=== PATIENT | female | born 1935 | race Caucasian/White ===

== ENCOUNTER 2018-03-17 10:41 | Emergency (ER) | payer MEDICARE ==
[2018-03-17 11:16] LABS: #Basophils 0.1 thou/uL (0.0-0.2); #Eosinphils 0.1 thou/uL (0.0-0.7); #Lymphocytes 1.8 thou/uL (1.20-3.40); #Monocytes 0.4 thou/uL (0.11-0.59); #Neutrophils 1.9 thou/uL (1.40-6.50); %Basophils 1.7 % (0.0-1.0); %Lymphocytes 41.1 % (21.0-51.0); %Monocytes 9.8 % (0.0-10.0); %Neutrophils 45.3 % (42.0-75.0); Hemoglobin 11.2 g/dL (12.0-16.0); Mean Corpuscular HGB CONC 33.3 g/dL (32.0-36.0); Mean Corpuscular Hemoglobin 30.8 pg (27.0-31.0); Mean Corpuscular Volume 92.5 fL (78.0-98.0); Mean Platelet Volume 8.4 fL (7.4-10.4); Platelet Count 232 thou/uL (130-400); RBC Distribution Width 13.2 % (11.5-14.5); Red Blood Cell (RBC) Count 3.62 mill/uL (4.20-5.40); White Blood Cell (WBC) Count 4.3 thou/uL (4.8-10.8)
[2018-03-17 11:38] LABS: ALT (SGPT) 17 U/L (8-55); AST (SGOT) 23 U/L (5-34); Albumin 3.4 g/dL (3.4-4.8); Alkaline Phosphatase 94 U/L (40-150); Anion Gap 13 mmol/L (10-20); BUN (Urea Nitrogen) 11 mg/dL (9.8-20.1); Bilirubin, Total 0.3 mg/dL (0.2-1.2); CK (CPK) 96 U/L (29-168); Calc. Creatinine Clearance 0 mL/min (70-130); Calcium 9.2 mg/dL (7.8-10.44); Carbon Dioxide 24 mmol/L (23-31); Chloride 101 mmol/L (98-107); Estimated GFR-MDRD 86; Globulin 2.3 g/dL (2.4-3.5); Glucose 82 mg/dL (83-110); Potassium 3.9 mmol/L (3.5-5.1); Protein, Total 5.7 g/dL (6.0-8.3); Sodium 134 mmol/L (136-145)
--- NOTE | 2018-03-17 11:40 | CT ---
HEAD CT WITHOUT CONTRAST: HISTORY: Weakness. COMPARISON: 10/31/15. FINDINGS: No parenchymal hemorrhage. No extraaxial hematoma. No midline shift. Basilar cisterns are patent. Age-appropriate atrophy. Cortical jarrett-white matter differentiation is preserved. Ventricles and sulci are patent and symmetric. White matter hypodensities due to chronic small vessel ischemic changes of the white matter are ident ified. There is a hypodensity involving the subcortical white matter near the left vertex predominan tly at the posterior aspect of the left frontal lobe. This may also be due to chronic small-vessel i schemic change. However, underlying white matter infarct or possible small focus of vasogenic edema could not be excluded. This hypodensity is not appreciated on the previous exam. Further evaluation with pre- and postcontrast brain MRI is recommended. IMPRESSION: Findings as above. Nonemergent pre- and postcontrast brain MRI is recommended. POS: [facility]
[2018-03-17 11:42] LABS: CKMB 6.1 ng/mL (0-6.6); Troponin I 0.018 ng/mL (< 0.028)
--- NOTE | 2018-03-23 13:21 | EKG ---
Test Reason : Blood Pressure : / mmHG Vent. Rate : 075 BPM Atrial Rate : 075 BPM P-R Int : 138 ms QRS Dur : 104 ms QT Int : 422 ms P-R-T Axes : 010 -82 076 degrees QTc Int : 471 ms Normal sinus rhythm Incomplete right bundle branch block Left anterior fascicular block Abnormal ECG Confirmed by ROLA LANDIS ([id number]), news assignment editor OLEGARIO DEL RIO ([id number]) on 03/23/2018 1:20:31 PM Referred By: Confirmed By:ROLA LANDIS
== END 2018-03-17 15:46 | disposition home or self-care (01) ==
LOC: ERS 10:41
DX: I95.1 Orthostatic hypotension (principal); K21.9 Gastro-esophageal reflux disease without esophagitis; E78.5 Hyperlipidemia, unspecified; Z86.73 Personal history of transient ischemic attack (TIA), and cerebral infarction without residual deficits; F32.9 Major depressive disorder, single episode, unspecified; Z87.891 Personal history of nicotine dependence
CPT/HCPCS: 36415; 70450; 80053; 82553; 84484; 85025; 93005; 96360; 96361

== ENCOUNTER 2018-04-22 14:19 | Inpatient (IN) | payer MEDICARE ==
[2018-04-22 15:13] LABS: #Basophils 0.1 thou/uL (0.0-0.2); #Lymphocytes 0.6 thou/uL (1.20-3.40); #Monocytes 0.6 thou/uL (0.11-0.59); #Neutrophils 9.4 thou/uL (1.40-6.50); %Basophils 0.6 % (0.0-1.0); %Eosinophils 0.2 % (0.0-10.0); %Lymphocytes 5.6 % (21.0-51.0); %Monocytes 5.7 % (0.0-10.0); Hemoglobin 12.7 g/dL (12.0-16.0); Mean Corpuscular HGB CONC 33.4 g/dL (32.0-36.0); Mean Corpuscular Volume 92.8 fL (78.0-98.0); Mean Platelet Volume 7.3 fL (7.4-10.4); Platelet Count 235 thou/uL (130-400); RBC Distribution Width 13.5 % (11.5-14.5); Red Blood Cell (RBC) Count 4.09 mill/uL (4.20-5.40); White Blood Cell (WBC) Count 10.7 thou/uL (4.8-10.8)
[2018-04-22] MEDS ORDERED: Ondansetron PF 4 MG/2 ML Vial ONE (15:13)
--- NOTE | 2018-04-22 15:28 | RAD ---
CHEST 1 VIEW: Date: 04/22/18 HISTORY: 82-year-old female with weakness, nausea, and vomiting. Possible atrial fibrillation. COMPARISON: 01/20/17. FINDINGS: Monitor leads overlie the chest. Borderline cardiomegaly. Anterior cervical fusion changes at multipl e levels of the lower cervical spine. There is a skin fold overlying the right chest wall. IMPRESSION: No acute intrathoracic disease. Atherosclerosis of the aorta. POS: [facility]
[2018-04-22 15:37] LABS: ALT (SGPT) 43 U/L (8-55); AST (SGOT) 26 U/L (5-34); Albumin 3.7 g/dL (3.4-4.8); Alkaline Phosphatase 72 U/L (40-150); Anion Gap 9 mmol/L (10-20); BUN (Urea Nitrogen) 13 mg/dL (9.8-20.1); Bilirubin, Total 0.3 mg/dL (0.2-1.2); CK (CPK) 58 U/L (29-168); Calc. Creatinine Clearance 0 mL/min (70-130); Calcium 9.7 mg/dL (7.8-10.44); Carbon Dioxide 33 mmol/L (23-31); Chloride 96 mmol/L (98-107); Estimated GFR-MDRD 82; Globulin 2.4 g/dL (2.4-3.5); Glucose 85 mg/dL (83-110); Lipase 22 U/L (8-78); Potassium 3.6 mmol/L (3.5-5.1); Protein, Total 6.1 g/dL (6.0-8.3); Sodium 134 mmol/L (136-145)
[2018-04-22 15:47] LABS: CKMB 9.3 ng/mL (0-6.6); Troponin I 0.453 ng/mL (< 0.028)
[2018-04-22] MEDS ORDERED: cloNIDine 0.1 MG TAB PO PRN (17:21)
[2018-04-22] MEDS ORDERED: Diabetic Tussin 200 MG/10 ML UDCUP PO PRN (17:21)
[2018-04-22] MEDS ORDERED: HYDROcodone/Acetaminophen 5/325 mg Tablet PO PRN (17:21)
[2018-04-22] MEDS ORDERED: Sodium Chloride 0.65% Nasal 44 ML BOT EA NARE PRN (17:21)
[2018-04-22] MEDS ORDERED: Bisacodyl 5 MG TAB PO PRN ×2 (17:21)
[2018-04-22] MEDS ORDERED: Acetaminophen 500 MG TAB PO PRN (17:21)
[2018-04-22] MEDS ORDERED: Ondansetron PF 4 MG/2 ML Vial IVP PRN ×2 (17:21)
[2018-04-22] MEDS ORDERED: Senokot S 8.6-50 MG TAB PO PRN ×2 (17:21)
[2018-04-22] MEDS ORDERED: hydrALAZINE 20 MG/ML VIAL SLOW IVP PRN (17:21)
[2018-04-22] MEDS ORDERED: Calcium Carbonate 500 MG ChewTAB PO PRN (17:21)
[2018-04-22] MEDS ORDERED: Benzonatate 100 MG CAP PO PRN (17:21)
[2018-04-22] MEDS ORDERED: Enoxaparin Sodium 30 MG/0.3 ML SYRINGE ONE (18:05)
[2018-04-22 18:29] LABS: Bilirubin Negative (Negative); Blood, Urine Negative (Negative); Clarity CLEAR (Clear); Glucose, Urine (Dipstick) Negative (Negative); Leukocyte Negative (Negative); Nitrite Negative (Negative); Protein, Urine (Dipstick) Negative (Neg-Trace); Specific Gravity, Urine 1.003 (1.002-1.036); Urobilinogen 0.2 mg/dL (0.2-1.0); pH, Urine 7.5 (5.0-9.0)
[2018-04-22 19:49] LABS: Critical Call Chem Troponin I RESULT DECREASING; Troponin I 0.433 ng/mL (< 0.028)
--- NOTE | 2018-04-22 21:43 | HP ---
DATE OF ADMISSION: 04/22/2018 PRIMARY CARE PHYSICIAN: Dr. Meir Armstrong. CHIEF COMPLAINT: Generalized weakness. HISTORY OF PRESENT ILLNESS: Ms. Noble is a pleasant 82-year-old female with past medical history o f chronic atrial fibrillation, severe GERD, listed history of Crohn disease and pancreatitis and hist ory of PEA cardiac arrest and 12/2016, came to the emergency room with above-mentioned complaint. Hi story is mainly obtained by the patient herself and electronic medical records have been reviewed. T he patient was admitted in 12/2016 after she had coded after routine EGD evaluation and had to be res uscitated. At that time, she has required intubation for hypoxic respiratory failure, but had compli cated postop course requiring tracheostomy and PEG tube placement and was discharged to LTAC at that time. She reports that since then she has been feeling fairly well. She has been able to work out with the physical therapy initially in the LTAC and then later at home health and also an outpatient setting, but; however, for the last 2 or 3 months, she has been feeling more and more weak up to the point wh ere that she quit going for the therapy. She has also been having some intermittent nausea and vomit ing for the last few days. Today, her symptoms are more pronounced. She just could not get out of t he chair at all. She reports that her and herself struggle for 1 hour to get her up to go us e the restroom, but were unable to do so. Finally, her home health care nurse came up to the house a nd she helped her to the bathroom. Other than that, she denies any recent illnesses. She denies any chest pain, palpitation, shortness of breath. She denies any diarrhea or abdominal pain. She denie s any dizziness, lightheadedness. She denies any dysuria, frequency or urgency. Upon presentation to the emergency room, she was hemodynamically stable with blood pressure 132/76, p ulse of 85, respirations 16, saturating 94% on room air, temperature 98.3. Her initial workup reveal ed elevated cardiac enzymes with a CK-MB of 9.3 with normal creatinine kinase and troponin of 0.453. BNP is only mildly elevated to 318. Urinalysis was unremarkable and a chest x-ray done in the ER di d not show any evidence of pulmonary effusion, edema or infiltrate. She received Lovenox 1 mg per ki lograms therapeutic dose in the ER and is now being admitted for further workup for cardiac causes. She has notably history of chronic atrial fibrillation, but is not on any oral anticoagulation. She does not remember the last time she was seen by a television parts tester. PAST MEDICAL HISTORY: 1. Pulseless electrical activity arrest after an EGD in 12/2016. 2. Dyslipidemia. 3. Peptic ulcer disease. 4. Osteoarthritis. 5. Depression. 6. Hypothyroidism. In the ER notes, it mentions Crohn disease and pancreatitis. 7. TIA. PAST SURGICAL HISTORY: 1. Cataract surgery. 2. Tracheostomy with takedown. 3. PEG tube with subsequent removal. 4. Thyroidectomy. 5. Cholecystectomy. 6. Cervical spinal surgery. PSYCHIATRIC HISTORY: No suicidal ideation. She does have history of depression. SOCIAL HISTORY: She is and lives with her . She has no history of drug, tobacco or a lcohol abuse. FAMILY HISTORY: Significant for multiple family members with heart attacks on her mother's side. e reports that all men on the mother's side in their 60s of heart attack and the women lived to be in their 90s. REVIEW OF SYSTEMS: The following complete review of systems was negative, unless otherwise mentioned in the HPI or below: Constitutional: Weight loss or gain, ability to conduct usual activities. Sk in: Rash, itching. Eyes: Double vision, pain. ENT/Mouth: Nose bleeding, neck stiffness, pain, te nderness. Cardiovascular: Palpitations, dyspnea on exertion, orthopnea. Respiratory: Shortness of breath, wheezing, cough, hemoptysis, fever or night sweats. Gastrointestinal: Poor appetite, abdom inal pain, heartburn, nausea, vomiting, constipation, or diarrhea. Genitourinary: Urgency, frequenc y, dysuria, nocturia. Musculoskeletal: Pain, swelling. Neurologic/Psychiatric: Anxiety, depressio n. Allergy/Immunologic: Skin rash, bleeding tendency. It is negative except for those mentioned in the history and physical. LABORATORY DATA: CBC unremarkable. She does have a normal WBC with 88% neutrophils. Serum chemistr y shows sodium of 134, chloride 96, bicarbonate 33, creatinine kinase 58, troponin 0.453 with repeat troponin of 0.433, BNP is 318. Chest x-ray by my review has no evidence of pleural effusion, edema o r infiltrate. A 12-lead EKG showed rate controlled atrial fibrillation at 78 beats per minute withou t any acute ST or T-wave changes. ALLERGIES: LATEX. CURRENT MEDICATIONS: Unknown. As per the ER records, but it further need to be confirmed amitriptyl ine 100 mg daily, alprazolam 0.25 mg p.r.n., multivitamin, aspirin 81 mg daily, tramadol 25 mg daily, levothyroxine 100 mcg daily. CODE STATUS: DO NOT RESUSCITATE or INTUBATE. Discussed with the patient in detail. She does not wa nt to be resuscitated and she has confirmed this with her , who agrees. PHYSICAL EXAMINATION: VITAL SIGNS: Upon presentation, blood pressure 132/76, pulse of 85, saturating 94% on room air, resp irations 16, temperature 98.3. GENERAL: She is awake, alert, oriented x3, no acute distress, very pleasant, and appears stated age. No evidence of malnourishment. HEENT: Mucous membranes are slightly dry. No oropharyngeal exudate or erythema. Head is normocepha lic, atraumatic. Pupils equal, reactive to light and accommodation. Extraocular movement intact. NECK: Supple without any lymphadenopathy, JVD or bruit. CHEST: Clear to auscultation without any wheezing, rales or rhonchi. CARDIOVASCULAR: Rate, rhythm is regular without any murmur, rubs or gallops. ABDOMEN: Soft, nontender, nondistended with positive bowel sounds. EXTREMITIES: Free of any cyanosis, clubbing, or edema. NEUROLOGIC: Nonfocal. SKIN: Free of any rashes or bruises. I feel warm and dry to touch. PSYCHIATRIC: Normal affect. IMPRESSION AND PLAN: 1. Non-ST elevation myocardial infarction. The patient has history of chronic atrial and her sympto ms are quite concerning for a cardiac event. ACS cannot be ruled out at this time as well as demand ischemia from possibly paroxysmal atrial fibrillation. She will be continued on b.i.d. dose of Loven ox for now and we will add a daily dose of aspirin as well. We will perform a transthoracic echocard iogram and request consultation with Cardiology in the morning as well. We will continue to trend se rial cardiac enzymes for now. She has some sort of history of pulseless electrical activity arrest l ast year, but it does not seem like that any cardiac workup was done at that time. 2. Chronic paroxysmal atrial fibrillation. The patient's CHADS VASc 2 score is 5. She ideally need s to be on anticoagulation as there is no obvious contraindication. We will continue her on Lovenox for now and add aspirin. We will consult Cardiology in the morning and get echocardiogram. Her medi cations need to be reconsulted. Her blood pressure and heart rate are currently under control. 3. History of transient ischemic attack. Once again, the medications are not up to date. We will c ontinue her on aspirin for now. 4. History of peptic ulcer disease. We will start her on Protonix twice a day for now as she is on aspirin as well as Lovenox. No history of GI bleed in the past. 5. Dyslipidemia. Restart home medications once confirmed 6. Hypothyroidism. Restart home medications once confirmed. 7. CODE STATUS: DO NOT RESUSCITATE or INTUBATE discussed with the patient. DISPOSITION: Ms. Noble is currently being admitted to the hospital for non-ST elevation HI and pos sibly ACS. Estimated length of stay at least 2-3 midnights. Further management will depend upon her clinical course.
[2018-04-22 21:59] LABS: Troponin I 0.445 ng/mL (< 0.028)
[2018-04-22] MEDS ORDERED: traZODone HCl 50 MG TAB PO SCH (22:15)
[2018-04-22] MEDS ORDERED: Pregabalin 75 MG CAP PO SCH (22:15)
[2018-04-22] MEDS ORDERED: Midodrine HCl 5 MG TAB PO SCH (22:15)
[2018-04-23] MEDS ORDERED: Famotidine 20 MG TAB ONE (00:28)
[2018-04-23] MEDS: Famotidine 20 MG TAB PO SCH ×3 (00:30→20:49)
[2018-04-23] MEDS: Acetaminophen 325 MG TAB PO PRN (00:32)
[2018-04-23 07:54] LABS: #Basophils 0.1 thou/uL (0.0-0.2); #Lymphocytes 2.8 thou/uL (1.20-3.40); #Monocytes 0.8 thou/uL (0.11-0.59); #Neutrophils 5.7 thou/uL (1.40-6.50); %Basophils 0.7 % (0.0-1.0); %Eosinophils 0.4 % (0.0-10.0); %Lymphocytes 29.5 % (21.0-51.0); %Monocytes 8.1 % (0.0-10.0); %Neutrophils 61.2 % (42.0-75.0); Mean Corpuscular HGB CONC 32.4 g/dL (32.0-36.0); Mean Corpuscular Hemoglobin 30.2 pg (27.0-31.0); Mean Corpuscular Volume 93.1 fL (78.0-98.0); Mean Platelet Volume 7.4 fL (7.4-10.4); Platelet Count 238 thou/uL (130-400); RBC Distribution Width 13.9 % (11.5-14.5); Red Blood Cell (RBC) Count 3.99 mill/uL (4.20-5.40); White Blood Cell (WBC) Count 9.3 thou/uL (4.8-10.8)
[2018-04-23 08:15] LABS: Anion Gap 9 mmol/L (10-20); BUN (Urea Nitrogen) 16 mg/dL (9.8-20.1); Calc. Creatinine Clearance 47 mL/min (70-130); Calcium 9.3 mg/dL (7.8-10.44); Carbon Dioxide 32 mmol/L (23-31); Chloride 99 mmol/L (98-107); Estimated GFR-MDRD 85; Glucose 78 mg/dL (83-110); Potassium 3.6 mmol/L (3.5-5.1); Sodium 136 mmol/L (136-145)
[2018-04-23] MEDS: Enoxaparin Sodium 40 MG/0.4 ML SYRINGE SC SCH ×2 (08:57→20:50)
[2018-04-23] MEDS: Aspirin 81 mg Enteric Coated Tablet PO SCH (08:57)
[2018-04-23] MEDS ORDERED: Midodrine HCl 5 MG TAB PO SCH (09:00)
[2018-04-23] MEDS ORDERED: Pregabalin 75 MG CAP PO SCH (09:00)
[2018-04-23] MEDS ORDERED: Citalopram 20 MG TAB PO SCH (09:00)
[2018-04-23] MEDS ORDERED: HYDROcodone/Acetaminophen 5/325 mg Tablet PO PRN (09:05)
[2018-04-23] MEDS ORDERED: traMADol HCl 50 MG TAB PO PRN (09:05)
[2018-04-23] MEDS ORDERED: Fioricet 325/50/40 mg Tablet PO PRN (09:50)
[2018-04-23] MEDS ORDERED: Ondansetron ODT 4 MG TAB PO PRN (09:54)
[2018-04-23] MEDS: Lactinex Tablet PO SCH (12:09)
--- NOTE | 2018-04-23 13:31 | CON ---
DATE OF CONSULTATION: 04/23/2018 HISTORY OF PRESENT ILLNESS: Bianca Noble is a pleasant 82-year-old white female who was admitted with progressive weakness at home. Her previous history is remarkable for having undergone cardiac catheterization by Dr. Granda in 03/2001. This revealed ejection fraction of 50-60% with no significant coronary artery disease. An echocardiogram in 06/2014 revealed ejection fraction of 65-70% with grade I diastolic dysfunction and trace mitral and tricuspid regurgitation. In 10/2015 she had a transient ischemic attack with left arm weakness. This lasted approximately 30-60 minutes. In 12/2016, she underwent EGD and apparently had a respiratory arrest and an episode of pulseless electrical activity. She received chest compressions for a short time. The EGD was performed for progressive epigastric pain and also a 40 pound weight loss over several years. She ultimately underwent placement of a tracheostomy and PEG tube and was discharged to LTAC. She apparently had tracheal edema requiring reintubation prior to placement of the tracheostomy. She has had progressive muscle weakness for the last year and states she has had more than 18 falls at home. Approximately 1 month ago she saw Dr. Garcia for evaluation. At that time, she was placed on prednisone 20 mg b.i.d. She is uncertain what the diagnosis was. She now is brought to the emergency room with increased weakness at home to where she could not even get up to go to the bathroom. She denied any chest pain or shortness of breath with this. She has been found to have mildly elevated troponin I and cardiology consultation was requested. PAST MEDICAL HISTORY: History of respiratory arrest and pulseless electrical activity after EGD in 12/2016 requiring tracheostomy and PEG tube placement, hypercholesterolemia, peptic ulcer disease, depression, osteoarthritis, hypothyroidism with a history of chronic pancreatitis, history of TIA and unknown type of myopathy. OPERATIONS: Cholecystectomy, tracheostomy, PEG tube placement, both which were removed, thyroidectomy and cervical spine surgery. MEDICATIONS: At home include prednisone 20 mg b.i.d., Xanax 0.25 t.i.d. p.r.n. , Elavil 100 at bedtime, aspirin 81 daily, vitamin B12 1000 mcg IM, Bentyl 20 mg q.i.d., ferrous sulfate 75 daily, [place] 1 tablet q.4 hours p.r.n., probiotic 1 capsule daily, Synthroid 100 mcg daily, omeprazole 20 daily, Zofran 4 mg q.12. p.r.n., Zoloft 50 daily, Januvia 25 daily, CoQ10 30 mg daily, Bactrim daily, Ultram 50 p.r.n. ALLERGIES: LATEX. SOCIAL HISTORY: She smoked in the past. She rarely drinks. FAMILY HISTORY: Negative for coronary artery disease in the immediate family. REVIEW OF SYSTEMS: Twelve point review of systems otherwise unremarkable. PHYSICAL EXAMINATION: VITAL SIGNS: Blood pressure 115/56, pulse of 80. HEENT: PERRL. NECK: Supple. CHEST: Clear. CARDIAC: S1, S2 normal, without any S3, S4 or murmurs. Carotid upstrokes normal, without bruits. ABDOMEN: Normal bowel sounds, without tenderness or organomegaly. EXTREMITIES: Revealed 1+ pretibial edema. NEUROLOGIC: Grossly intact. SKIN: Warm and dry. LABORATORY DATA: EKG reveals normal sinus rhythm with PACs and incomplete right bundle branch block. The EKGs I feel are incorrectly interpreted as showing atrial fibrillation. On telemetry since she has been admitted here, she was definitely in sinus rhythm. CBC is unremarkable. Hemoglobin 12.0, hematocrit 37.1, sodium 136, potassium 3.6, chloride 99, carbon dioxide 32, BUN 16, creatinine 0.67. CK 58, CK-MB 9.3 , troponin I 0.453. BNP 318.1. IMPRESSION: 1. Progressive muscle weakness, questionable myopathy. She denies any rash. She has seen Dr. Garcia and has been placed on prednisone 20 mg b.i.d. for the last month. 2. No evidence of atrial fibrillation with EKGs and monitor showing sinus rhythm. 3. Elevated troponin I, without a history of chest discomfort. 4. History of multiple falls. 5. History of transient ischemic attack. 6. Hyperlipidemia. 7. Hypothyroidism. 8. Status post pulseless electrical activity in 12/2016. This was after an EGD that was performed for weight loss and epigastric pain. 9. Peptic ulcer disease. 10. Osteoarthritis. 11. Depression. PLAN: The patient does not require anticoagulation since she is in sinus rhythm and should not be started on oral anticoagulants. Even if she did have atrial fibrillation, I would not recommend anticoagulation due to her multiple falls (over 18 falls in the last year). She does have some type of muscle weakness and has been evaluated by Dr. Maraist and consideration may need to be given to getting his input on her weakness. Thyroid function test and fasting lipid profile will be performed. With her elevated troponin I, this certainly could be due to demand ischemia. She did not have any chest discomfort. She has had a catheterization in 2000 which revealed normal coronary arteries. She currently is DNR and therefore I would recommend that she undergo adenosine Cardiolite testing to further evaluate her mildly abnormal troponin I's. If she has a significantly abnormal scan, then thought should be given to possible resending the DNR order and consider cardiac catheterization. She and her family agree with this plan. KASEY
--- NOTE | 2018-04-23 14:42 | PDOC.PN ---
- Subjective Encounter Start Date: 04/23/18 Encounter Start Time: 14:39 Subjective: feels much better.able to stand up by herself today -: no CP/SOB/palpitations - Objective Resuscitation Status: Resuscitation Status DNR:Do Not Resuscitate MAR Reviewed: Yes Vital Signs & Weight: Vital Signs (12 hours) Temp Pulse Pulse Pulse Resp BP BP 04/23/18 12:07 97.6 F 80 18 04/23/18 10:00 82 82 136/63 115/61 04/23/18 08:00 04/23/18 07:00 98.0 F 83 18 04/23/18 03:40 97.7 F 82 18 BP BP Pulse Ox 04/23/18 12:07 115/56 L 04/23/18 10:00 04/23/18 08:00 96 04/23/18 07:00 140/61 96 04/23/18 03:40 109/59 L 78 L Weight Admit Weight 98 lb 3.2 oz Weight 98 lb 3.2 oz I&O: 04/22/18 04/23/18 04/24/18 06:59 06:59 06:59 Intake Total 400 240 Output Total 320 Balance 80 240 Result Diagrams: 04/23/18 07:39 04/23/18 07:39 Additional Labs: Laboratory Tests 03/17/18 04/22/18 04/22/18 11:07 15:06 19:04 Troponin I 0.018 0.453 H* 0.433 H* 04/22/18 21:22 Troponin I 0.445 H* Phys Exam - Physical Examination Constitutional: NAD HEENT: PERRLA, moist MMs, sclera anicteric, oral pharynx no lesions Neck: no nodes, no JVD, supple, full ROM Respiratory: no wheezing, no rales, no rhonchi, clear to auscultation bilateral Cardiovascular: RRR, no significant murmur, no rub Gastrointestinal: soft, non-tender, no distention, positive bowel sounds Musculoskeletal: no edema, pulses present Neurological: non-focal, normal sensation, moves all 4 limbs Psychiatric: normal affect, A&O x 3 Skin: no rash Dx/Plan (1) NSTEMI (non-ST elevated myocardial infarction) Code(s): I21.4 - NON-ST ELEVATION (NSTEMI) MYOCARDIAL INFARCTION Status: Acute (2) Generalized weakness Code(s): R53.1 - WEAKNESS Status: Acute (3) Hypothyroidism Code(s): E03.9 - HYPOTHYROIDISM, UNSPECIFIED Status: Acute (4) Peptic ulcer disease Code(s): K27.9 - PEPTIC ULC, SITE UNSP, UNSP AC OR CHR, W/O HEMOR OR PERF Status: Acute - Plan PT/OT, DVT proph w/SCDs troponin trending down.nori demand ischemia Vs NSTEMI/ACs.asymptomatic -: ECHO. Stress tesr.cardiology recs noted -: HD stable.OT/PT. -: no a-fib on cardiology eval.no need for OAC.Fall risk as well -: AM labs * . Review of Systems - Review of Systems Constitutional: weakness, malaise. negative: fever, chills, sweats, other Eyes: negative: Pain, Vision Change, Conjunctivae Inflammation, Eyelid Inflammation, Redness, Other Respiratory: negative: Cough, Dry, Shortness of Breath, Hemoptysis, SOB with Excertion, Pleuritic Pain, Sputum, Wheezing Cardiovascular: negative: chest pain, palpitations, orthopnea, paroxysmal nocturnal dyspnea, edema, light headedness, other Gastrointestinal: negative: Nausea, Vomiting, Abdominal Pain, Diarrhea, Constipation, Melena, Hematochezia, Other Genitourinary: negative: Dysuria, Frequency, Incontinence, Hematuria, Retention , Other Musculoskeletal: negative: Neck Pain, Shoulder Pain, Arm Pain, Back Pain, Hand Pain, Leg Pain, Foot Pain, Other Skin: negative: Rash, Lesions, Franco, Bruising, Other Neurological: negative: Weakness, Numbness, Incoordination, Change in Speech, Confusion, Seizures, Other - Medications/Allergies Allergies/Adverse Reactions: Allergies Allergy/AdvReac Type Severity Reaction Status Date / Time latex Allergy Mild Verified 04/22/18 22:52 Medications: Current Medications Acetaminophen (Tylenol) 650 mg PO Q4H PRN PRN Reason: Headache/Fever/Mild Pain (1-3) Last Admin: 04/23/18 00:32 Dose: 650 mg Acetaminophen (Tylenol) 1,000 mg PO Q6H PRN PRN Reason: Mild Pain (1-3) Acetaminophen/Butalbital/Caffeine (Fioricet) 1 tab PO Q8H PRN PRN Reason: Migraine Headache Stop: 10/28/18 09:51 Hydrocodone Bitart/Acetaminophen ([place] 5/325) 1 tab PO Q4H PRN PRN Reason: Moderate Pain (4-6) Hydrocodone Bitart/Acetaminophen ([place] 5/325) 1 tab PO Q4H PRN PRN Reason: Pain Acidophilus (Floranex) 1 tab PO DAILY [facility] Last Admin: 04/23/18 12:09 Dose: 1 tab Alogliptin Benzoate (Alogliptin) 6.25 mg PO DAILY [facility] Alprazolam (Xanax) 0.25 mg PO TIDPRN PRN PRN Reason: Anxiety Amitriptyline HCl (Elavil) 100 mg PO HS [facility] Aspirin (Ecotrin) 81 mg PO DAILY [facility] Last Admin: 04/23/18 08:57 Dose: 81 mg Aspirin (Aspirin Chewable) 81 mg PO DAILY [facility] Benzonatate (Tessalon) 100 mg PO Q6H PRN PRN Reason: Cough Bisacodyl (Dulcolax) 10 mg PO DAILYPRN PRN PRN Reason: Constipation Calcium Carbonate (Tums) 1,000 mg PO Q4H PRN PRN Reason: Heartburn or Indigestion Last Admin: 04/23/18 05:48 Dose: 1,000 mg Clonidine (Catapres) 0.1 mg PO Q4H PRN PRN Reason: SBP > _160___ Coenzyme Q10 (Coenzyme Q10) 50 mg PO DAILY [facility] Enoxaparin Sodium (Lovenox) 40 mg SC 0900,2100 [facility] Last Admin: 04/23/18 08:57 Dose: 40 mg Famotidine (Pepcid) 20 mg PO BID [facility] Last Admin: 04/23/18 08:56 Dose: 20 mg Ferrous Sulfate (Feosol) 325 mg PO QAM-WM [facility] Guaifenesin (Robitussin Sf) 200 mg PO Q4H PRN PRN Reason: Cough Hydralazine HCl (Apresoline) 10 mg SLOW IVP Q4H PRN PRN Reason: SBP > 180 and HR < 70 Levothyroxine Sodium (Synthroid) 100 mcg PO 0600 [facility] Ondansetron HCl (Zofran) 4 mg IVP Q6H PRN PRN Reason: Nausea/Vomiting Ondansetron HCl (Zofran Odt) 4 mg PO Q12H PRN PRN Reason: Nausea/Vomiting Pantoprazole Sodium (Protonix) 40 mg PO DAILY [facility] Last Admin: 04/23/18 08:57 Dose: 40 mg Prednisone (Prednisone) 20 mg PO BID[facility] Senna/Docusate Sodium (Senokot S) 2 tab PO BID PRN PRN Reason: Constipation Sertraline HCl (Zoloft) 50 mg PO DAILY [facility] Sodium Chloride ([place] Nasal [place] 0.65%) 0 ml EA NARE QIDPRN PRN PRN Reason: Nasal Congestion Sodium Chloride (Flush - Normal Saline) 10 ml IVF Q12HR [facility] Last Admin: 04/23/18 08:58 Dose: 10 ml Sodium Chloride (Flush - Normal Saline) 10 ml IVF PRN PRN PRN Reason: Saline Flush Last Admin: 04/23/18 08:57 Dose: 10 ml Tramadol HCl (Ultram) 50 mg PO BIDPRN PRN PRN Reason: Pain
[2018-04-23] MEDS ORDERED: predniSONE 20 MG TAB PO SCH (17:00)
[2018-04-23] MEDS: predniSONE 20 MG TAB PO SCH (17:19)
[2018-04-23] MEDS: Amitriptyline HCl 100 MG TAB PO SCH (20:50)
[2018-04-23] MEDS ORDERED: traZODone HCl 50 MG TAB PO SCH (21:00)
[2018-04-24] MEDS: Levothyroxine Sodium 100 MCG TAB PO SCH (06:04)
[2018-04-24] MEDS: ALPRAZolam 0.25 MG TAB PO PRN (08:03)
[2018-04-24] MEDS: Acetaminophen 325 MG TAB PO PRN ×2 (08:09→21:03)
[2018-04-24] MEDS: Aspirin 81 mg Enteric Coated Tablet PO SCH (08:10)
[2018-04-24] MEDS: Famotidine 20 MG TAB PO SCH ×2 (08:30→20:54)
[2018-04-24] MEDS ORDERED: Non-Formulary Item 1 EACH (Omeprazole [Omeprazole] 20 MG) PO SCH (09:00)
[2018-04-24] MEDS ORDERED: Levothyroxine Sodium 100 MCG TAB PO SCH (09:00)
[2018-04-24] MEDS ORDERED: FERROUS GLUCONATE PO SCH (09:00)
[2018-04-24] MEDS ORDERED: ADENOSINE 60 MG/20 ML VIAL ONE (10:39)
--- NOTE | 2018-04-24 12:24 | PDOC.PN ---
- Subjective Encounter Start Date: 04/24/18 Encounter Start Time: 12:22 Subjective: feels well,no chest pain/SOB - Objective Resuscitation Status: Resuscitation Status DNR:Do Not Resuscitate MAR Reviewed: Yes Vital Signs & Weight: Vital Signs (12 hours) Temp Pulse Resp BP Pulse Ox 04/24/18 08:00 98 F 84 16 125/63 95 04/24/18 03:44 98.4 F 76 20 141/74 H 96 Weight Admit Weight 98 lb 3.2 oz Weight 96 lb 12.8 oz I&O: 04/23/18 04/24/18 04/25/18 06:59 06:59 06:59 Intake Total 400 1100 Output Total 320 2000 Balance 80 -900 Result Diagrams: 04/23/18 07:39 04/23/18 07:39 Additional Labs: Accuchecks 04/24/18 00:08 POC Glucose 101 Laboratory Tests 04/24/18 05:23 Triglycerides 133 Cholesterol 295 H LDL Cholesterol, Calc 170 HDL Cholesterol 98 Radiology Reviewed by me: Yes (ECHO-diastolic dysfunction) Phys Exam - Physical Examination Constitutional: NAD HEENT: PERRLA, moist MMs, sclera anicteric, oral pharynx no lesions Neck: no nodes, no JVD, supple, full ROM Respiratory: no wheezing, no rales, no rhonchi, clear to auscultation bilateral Cardiovascular: RRR, no significant murmur, no rub Gastrointestinal: soft, non-tender, no distention, positive bowel sounds Musculoskeletal: no edema, pulses present Neurological: non-focal, normal sensation, moves all 4 limbs Psychiatric: normal affect, A&O x 3 Skin: no rash Dx/Plan (1) NSTEMI (non-ST elevated myocardial infarction) Code(s): I21.4 - NON-ST ELEVATION (NSTEMI) MYOCARDIAL INFARCTION Status: Acute (2) Generalized weakness Code(s): R53.1 - WEAKNESS Status: Acute Comment: ? Myopathy.On prednisone by Neurology (3) Hypothyroidism Code(s): E03.9 - HYPOTHYROIDISM, UNSPECIFIED Status: Acute (4) Peptic ulcer disease Code(s): K27.9 - PEPTIC ULC, SITE UNSP, UNSP AC OR CHR, W/O HEMOR OR PERF Status: Acute - Plan plan discussed w/ family, PT/OT, DVT proph w/SCDs Stress test today.cont ASA -: pt would benefit from rehab.will arrange -: Hd stable.nori DC home in next 24 hours -: home meds as below -: Cholesterol high-add statin * . Review of Systems - Review of Systems Constitutional: weakness Eyes: negative: Pain, Vision Change, Conjunctivae Inflammation, Eyelid Inflammation, Redness, Other ENT: negative: Ear Pain, Ear Discharge, Nose Pain, Nose Discharge, Nose Congestion, Mouth Pain, Mouth Swelling, Throat Pain, Throat Swelling, Other Respiratory: negative: Cough, Dry, Shortness of Breath, Hemoptysis, SOB with Excertion, Pleuritic Pain, Sputum, Wheezing Cardiovascular: negative: chest pain, palpitations, orthopnea, paroxysmal nocturnal dyspnea, edema, light headedness, other Gastrointestinal: negative: Nausea, Vomiting, Abdominal Pain, Diarrhea, Constipation, Melena, Hematochezia, Other Genitourinary: negative: Dysuria, Frequency, Incontinence, Hematuria, Retention , Other Musculoskeletal: negative: Neck Pain, Shoulder Pain, Arm Pain, Back Pain, Hand Pain, Leg Pain, Foot Pain, Other Skin: negative: Rash, Lesions, Franco, Bruising, Other Neurological: negative: Weakness, Numbness, Incoordination, Change in Speech, Confusion, Seizures, Other - Medications/Allergies Allergies/Adverse Reactions: Allergies Allergy/AdvReac Type Severity Reaction Status Date / Time latex Allergy Mild Verified 04/22/18 22:52 Medications: Current Medications Acetaminophen (Tylenol) 650 mg PO Q4H PRN PRN Reason: Headache/Fever/Mild Pain (1-3) Last Admin: 04/24/18 08:09 Dose: 650 mg Acetaminophen (Tylenol) 1,000 mg PO Q6H PRN PRN Reason: Mild Pain (1-3) Acetaminophen/Butalbital/Caffeine (Fioricet) 1 tab PO Q8H PRN PRN Reason: Migraine Headache Stop: 04/28/18 09:51 Hydrocodone Bitart/Acetaminophen ([place] 5/325) 1 tab PO Q4H PRN PRN Reason: Moderate Pain (4-6) Hydrocodone Bitart/Acetaminophen ([place] 5/325) 1 tab PO Q4H PRN PRN Reason: Pain Acidophilus (Floranex) 1 tab PO DAILY [facility] Last Admin: 04/23/18 12:09 Dose: 1 tab Alogliptin Benzoate (Alogliptin) 6.25 mg PO DAILY [facility] Alprazolam (Xanax) 0.25 mg PO TIDPRN PRN PRN Reason: Anxiety Last Admin: 04/24/18 08:03 Dose: 0.25 mg Amitriptyline HCl (Elavil) 100 mg PO HS [facility] Last Admin: 04/23/18 20:50 Dose: 100 mg Aspirin (Ecotrin) 81 mg PO DAILY [facility] Last Admin: 04/24/18 08:10 Dose: 81 mg Benzonatate (Tessalon) 100 mg PO Q6H PRN PRN Reason: Cough Bisacodyl (Dulcolax) 10 mg PO DAILYPRN PRN PRN Reason: Constipation Calcium Carbonate (Tums) 1,000 mg PO Q4H PRN PRN Reason: Heartburn or Indigestion Last Admin: 04/23/18 05:48 Dose: 1,000 mg Clonidine (Catapres) 0.1 mg PO Q4H PRN PRN Reason: SBP > _160___ Coenzyme Q10 (Coenzyme Q10) 50 mg PO DAILY [facility] Enoxaparin Sodium (Lovenox) 40 mg SC 0900,2100 [facility] Last Admin: 04/23/18 20:50 Dose: 40 mg Famotidine (Pepcid) 20 mg PO BID [facility] Last Admin: 04/23/18 20:49 Dose: 20 mg Ferrous Sulfate (Feosol) 325 mg PO [facility] Guaifenesin (Robitussin Sf) 200 mg PO Q4H PRN PRN Reason: Cough Hydralazine HCl (Apresoline) 10 mg SLOW IVP Q4H PRN PRN Reason: SBP > 180 and HR < 70 Levothyroxine Sodium (Synthroid) 100 mcg PO 0600 [facility] Last Admin: 04/24/18 06:04 Dose: 100 mcg Ondansetron HCl (Zofran) 4 mg IVP Q6H PRN PRN Reason: Nausea/Vomiting Ondansetron HCl (Zofran Odt) 4 mg PO Q12H PRN PRN Reason: Nausea/Vomiting Pantoprazole Sodium (Protonix) 40 mg PO DAILY [facility] Last Admin: 04/24/18 08:07 Dose: 40 mg [facility]) [facility] Last Admin: 04/23/18 17:19 Dose: 20 mg Senna/Docusate Sodium (Senokot S) 2 tab PO BID PRN PRN Reason: Constipation Sertraline HCl (Zoloft) 50 mg PO DAILY [facility] Last Admin: 04/24/18 08:06 Dose: 50 mg Sodium Chloride ([place] Nasal [place] 0.65%) 0 ml EA NARE QIDPRN PRN PRN Reason: Nasal Congestion Sodium Chloride (Flush - Normal Saline) 10 ml IVF Q12HR [facility] Last Admin: 04/23/18 20:50 Dose: 10 ml Sodium Chloride (Flush - Normal Saline) 10 ml IVF PRN PRN PRN Reason: Saline Flush Last Admin: 04/23/18 08:57 Dose: 10 ml Tramadol HCl (Ultram) 50 mg PO BIDPRN PRN PRN Reason: Pain
[2018-04-24] MEDS: predniSONE 20 MG TAB PO SCH ×3 (13:35→20:54)
[2018-04-24] MEDS: Ubidecarenone 50 MG CAP PO SCH (13:35)
[2018-04-24] MEDS: Ferrous Sulfate 325 MG TAB PO SCH (13:36)
[2018-04-24] MEDS: Enoxaparin Sodium 40 MG/0.4 ML SYRINGE SC SCH ×2 (13:36→20:55)
[2018-04-24] MEDS: Lactinex Tablet PO SCH (13:36)
[2018-04-24] MEDS: Alogliptin 6.25 MG TAB PO SCH (13:37)
[2018-04-24] MEDS ORDERED: Sodium Chloride 0.9% 500 ML IVPB SCH (14:30)
[2018-04-24 14:44] LABS: Anion Gap 9 mmol/L (10-20); BUN (Urea Nitrogen) 14 mg/dL (9.8-20.1); Calc. Creatinine Clearance 49 mL/min (70-130); Carbon Dioxide 30 mmol/L (23-31); Chloride 98 mmol/L (98-107); Estimated GFR-MDRD 89; Glucose 103 mg/dL (83-110); Potassium 3.3 mmol/L (3.5-5.1); Sodium 134 mmol/L (136-145)
[2018-04-24 14:57] LABS: CKMB 7.7 ng/mL (0-6.6); Troponin I 0.438 ng/mL (< 0.028)
--- NOTE | 2018-04-24 18:59 | NM ---
NUCLEAR MEDICINE CARDIAC SPECT STRESS WITH EF AND WALL MOTION: 04/24/18 HISTORY: 82-year-old female with history of NSTEMI, history of catheterization, history of TIA, dyslipidemia. Adenosine Sestamibi study was performed. The patient was injected with 31.5 millicuries technetium 99m Sestamibi intravenously for stress imag es and patient was injected with 10.2 millicuries technetium 99m Sestamibi intravenously for resting images. Multiple SPECT images in the short axis, vertical long axis, and horizontal long axis demonstrates no scan evidence for infarct or ischemia. TID 1.02. LHR 0.24. EDV 46 mL. EF 51%. Myocardial perfusion wall motion: Wall motion is normal. IMPRESSION: Unremarkable cardiac SPECT with EF and wall motion. POS: HECTOR
[2018-04-24] MEDS: Metoclopramide HCl 10 MG TAB PO SCH (20:54)
[2018-04-24] MEDS: Atorvastatin Calcium 10 MG TAB PO SCH (20:54)
[2018-04-24] MEDS: Amitriptyline HCl 100 MG TAB PO SCH (20:55)
[2018-04-25] MEDS: ALPRAZolam 0.25 MG TAB PO PRN (00:10)
[2018-04-25 06:08] LABS: Critical Call Chem Troponin I RESULT DECREASING; Troponin I 0.363 ng/mL (< 0.028)
[2018-04-25] MEDS: Levothyroxine Sodium 100 MCG TAB PO SCH (06:41)
[2018-04-25] MEDS: Ferrous Sulfate 325 MG TAB PO SCH (08:35)
[2018-04-25] MEDS: Metoclopramide HCl 10 MG TAB PO SCH ×4 (08:35→21:21)
[2018-04-25] MEDS: Enoxaparin Sodium 40 MG/0.4 ML SYRINGE SC SCH ×2 (08:36→21:21)
[2018-04-25] MEDS: Aspirin 81 mg Enteric Coated Tablet PO SCH (08:36)
[2018-04-25] MEDS: Famotidine 20 MG TAB PO SCH ×2 (08:36→21:21)
[2018-04-25] MEDS: predniSONE 20 MG TAB PO SCH ×2 (08:36→17:11)
[2018-04-25] MEDS: Alogliptin 6.25 MG TAB PO SCH (08:36)
[2018-04-25] MEDS: Lactinex Tablet PO SCH (08:37)
[2018-04-25] MEDS: Ubidecarenone 50 MG CAP PO SCH (08:37)
[2018-04-25 08:43] LABS: #Lymphocytes 0.8 thou/uL (1.20-3.40); #Monocytes 0.4 thou/uL (0.11-0.59); #Neutrophils 7.3 thou/uL (1.40-6.50); %Basophils 0.1 % (0.0-1.0); %Eosinophils 0.1 % (0.0-10.0); %Lymphocytes 8.9 % (21.0-51.0); %Monocytes 4.9 % (0.0-10.0); Hemoglobin 13.1 g/dL (12.0-16.0); Mean Corpuscular HGB CONC 31.7 g/dL (32.0-36.0); Mean Corpuscular Hemoglobin 29.8 pg (27.0-31.0); Mean Corpuscular Volume 93.9 fL (78.0-98.0); Mean Platelet Volume 7.4 fL (7.4-10.4); Platelet Count 236 thou/uL (130-400); RBC Distribution Width 13.7 % (11.5-14.5); Red Blood Cell (RBC) Count 4.41 mill/uL (4.20-5.40); White Blood Cell (WBC) Count 8.5 thou/uL (4.8-10.8)
[2018-04-25 08:56] LABS: Anion Gap 8 mmol/L (10-20); BUN (Urea Nitrogen) 13 mg/dL (9.8-20.1); Calc. Creatinine Clearance 48 mL/min (70-130); Calcium 9.3 mg/dL (7.8-10.44); Carbon Dioxide 34 mmol/L (23-31); Chloride 97 mmol/L (98-107); Estimated GFR-MDRD 88; Glucose 111 mg/dL (83-110); Potassium 3.5 mmol/L (3.5-5.1); Sodium 135 mmol/L (136-145)
--- NOTE | 2018-04-25 11:23 | PQF ---
CLINICAL DOCUMENTATION IMPROVEMENT CLARIFICATION FORM: ICD-10 Updated PLEASE DO AN ADDENDUM TO THE PROGRESS NOTE WITH ANY DOCUMENTATION UPDATES OR ADDITIONS AND CARRY THROUGH TO DC SUMMARY. THANK YOU. DATE: 04/25/18 ATTN: DR. MATOS Please exercise your independent, professional judgment in responding to the clarification form. Clinical indicators are provided on the bottom of this form for your review Please check appropriate box(s) to clarify if the following diagnosis has been ruled in or ruled out: NSTEMI [ ] Ruled in diagnosis [ ] Continue to treat [ ] Resolved [ X ] Ruled out diagnosis [ ] Cannot rule out diagnosis [ ] Other diagnosis--demand ischemia [ ] Unable to determine In addition, please specify: Present on Admission (POA): [ ] Yes [ ] No [ X ] Unable to determine For continuity of documentation, please document condition throughout progress notes and discharge summary. Thank You. CLINICAL INDICATORS - SIGNS / SYMPTOMS / LABS H&P: "NON-ST ELEVATION MYOCARDIAL INFARCTION" "ACS CANNOT BE RULED OUT AT THIS TIME WELL DEMAND ISCHEMIA FROM POSSIBLY PAROXYSMAL ATRIAL FIBRILLATION." CONSULTATION NOTE (CARDIOLOGY) 04/23: "NO EVIDENCE OF ATRIAL FIBRILLATION WITH EKG AND MONITOR SHOWING SINUS RHYTHM. ELEVATED TROPONIN I, WITHOUT A HISTORY OF CHEST DISCOMFORT." PROGRESS NOTE 04/24: "NSTEMI" "TROPONIN TRENDING DOWN, LIKELY DEMAND ISCHEMIA VS NSTEMI / ACS ASYMPTOMATIC" TROPONINS: 0.433 / 0.445 / 0.438 RISKS: H/O CHRONIC ATRIAL FIBRILLATION H/O ATRIAL FIBRILLATION TREATMENT: CARDIOLOGY CONSULT TELEMETRY MONITORING SERIAL LABS LOVENOX (ER-PRESENT) ASPIRIN (ER-PRESENT) (This form is maintained as a part of the permanent medical record) 2014 [employer]. All Rights Reserved JUSTYN [email or web address] Office: [phone] [facility]
[2018-04-25 12:37] VITALS: BMI 19.5
--- NOTE | 2018-04-25 14:05 | PDOC.PN ---
- Subjective Encounter Start Date: 04/25/18 Encounter Start Time: 14:03 Subjective: feels much better today.some nausea earlier but better now -: ble to eat w/o vomiting.no abd pain/diarrhea - Objective Resuscitation Status: Resuscitation Status DNR:Do Not Resuscitate MAR Reviewed: Yes Vital Signs & Weight: Vital Signs (12 hours) Temp Pulse Resp BP Pulse Ox 04/25/18 11:32 98.8 F 84 16 112/69 97 04/25/18 08:32 97.9 F 84 16 129/59 L 98 04/25/18 03:32 98.1 F 81 20 128/60 93 L Weight Admit Weight 98 lb 3.2 oz Weight 96 lb 9.6 oz I&O: 04/24/18 04/25/18 04/26/18 06:59 06:59 06:59 Intake Total 1100 1582 Output Total 2000 530 Balance -900 1052 Result Diagrams: 04/25/18 08:33 04/25/18 08:33 Additional Labs: Accuchecks 04/24/18 14:05 POC Glucose 96 Laboratory Tests 04/22/18 04/22/18 04/22/18 15:06 19:04 21:22 Troponin I 0.453 H* 0.433 H* 0.445 H* 04/24/18 04/25/18 14:05 05:13 Troponin I 0.438 H* 0.363 H* Phys Exam - Physical Examination Constitutional: NAD weak and tired looking HEENT: PERRLA, moist MMs, sclera anicteric, oral pharynx no lesions Neck: no nodes, no JVD, supple, full ROM Respiratory: no wheezing, no rales, no rhonchi, clear to auscultation bilateral Cardiovascular: RRR, no significant murmur Gastrointestinal: soft, non-tender, no distention, positive bowel sounds Musculoskeletal: no edema, pulses present Neurological: non-focal, normal sensation, moves all 4 limbs Psychiatric: normal affect, A&O x 3 Skin: no rash Dx/Plan (1) NSTEMI (non-ST elevated myocardial infarction) Code(s): I21.4 - NON-ST ELEVATION (NSTEMI) MYOCARDIAL INFARCTION Status: Acute Comment: likely demand ischemia (2) Generalized weakness Code(s): R53.1 - WEAKNESS Status: Acute Comment: ? Myopathy.On prednisone by Neurology (3) Hypothyroidism Code(s): E03.9 - HYPOTHYROIDISM, UNSPECIFIED Status: Acute (4) Peptic ulcer disease Code(s): K27.9 - PEPTIC ULC, SITE UNSP, UNSP AC OR CHR, W/O HEMOR OR PERF Status: Acute - Plan plan discussed w/ family, PT/OT, incentive spirometry, DVT proph w/SCDs HD stable. no more episodes of syncope/near syncope.meccaley vasovagal yester -: Reglan added for possible gastroparesis.improved -: OK to DC to rehab when accepeted. -: meds as below.ADVISED TO CONT PPI w prednisone.f/u w Neuro for same -: troponin trended down.ECHO & stress test NL.no ACS * . Review of Systems - Review of Systems Constitutional: weakness, malaise. negative: fever, chills, sweats, other Respiratory: negative: Cough, Dry, Shortness of Breath, Hemoptysis, SOB with Excertion, Pleuritic Pain, Sputum, Wheezing Cardiovascular: negative: chest pain, palpitations, orthopnea, paroxysmal nocturnal dyspnea, edema, light headedness, other Gastrointestinal: Nausea. negative: Vomiting, Abdominal Pain, Diarrhea, Constipation, Melena, Hematochezia, Other Genitourinary: negative: Dysuria, Frequency, Incontinence, Hematuria, Retention , Other Musculoskeletal: negative: Neck Pain, Shoulder Pain, Arm Pain, Back Pain, Hand Pain, Leg Pain, Foot Pain, Other Skin: negative: Rash, Lesions, Franco, Bruising, Other Neurological: negative: Weakness, Numbness, Incoordination, Change in Speech, Confusion, Seizures, Other - Medications/Allergies Allergies/Adverse Reactions: Allergies Allergy/AdvReac Type Severity Reaction Status Date / Time latex Allergy Mild Verified 04/22/18 22:52 Medications: Current Medications Acetaminophen (Tylenol) 650 mg PO Q4H PRN PRN Reason: Headache/Fever/Mild Pain (1-3) Last Admin: 04/24/18 21:03 Dose: 650 mg Acetaminophen (Tylenol) 1,000 mg PO Q6H PRN PRN Reason: Mild Pain (1-3) Acetaminophen/Butalbital/Caffeine (Fioricet) 1 tab PO Q8H PRN PRN Reason: Migraine Headache Stop: 04/28/18 09:51 Hydrocodone Bitart/Acetaminophen ([place] 5/325) 1 tab PO Q4H PRN PRN Reason: Moderate Pain (4-6) Hydrocodone Bitart/Acetaminophen ([place] 5/325) 1 tab PO Q4H PRN PRN Reason: Pain Acidophilus (Floranex) 1 tab PO DAILY [facility] Last Admin: 04/25/18 08:37 Dose: 1 tab Alogliptin Benzoate (Alogliptin) 6.25 mg PO DAILY [facility] Last Admin: 04/25/18 08:36 Dose: 6.25 mg Alprazolam (Xanax) 0.25 mg PO TIDPRN PRN PRN Reason: Anxiety Last Admin: 04/25/18 00:10 Dose: 0.25 mg Amitriptyline HCl (Elavil) 100 mg PO [facility] Last Admin: 04/24/18 20:55 Dose: 100 mg Aspirin (Ecotrin) 81 mg PO DAILY [facility] Last Admin: 04/25/18 08:36 Dose: 81 mg Atorvastatin Calcium (Lipitor) 10 mg PO HS [facility] Last Admin: 04/24/18 20:54 Dose: Not Given Benzonatate (Tessalon) 100 mg PO Q6H PRN PRN Reason: Cough Bisacodyl (Dulcolax) 10 mg PO DAILYPRN PRN PRN Reason: Constipation Calcium Carbonate (Tums) 1,000 mg PO Q4H PRN PRN Reason: Heartburn or Indigestion Last Admin: 04/23/18 05:48 Dose: 1,000 mg Clonidine (Catapres) 0.1 mg PO Q4H PRN PRN Reason: SBP > _160___ Coenzyme Q10 (Coenzyme Q10) 50 mg PO DAILY [facility] Last Admin: 04/25/18 08:37 Dose: 50 mg Enoxaparin Sodium (Lovenox) 40 mg SC 0900,2100 [facility] Last Admin: 04/25/18 08:36 Dose: 40 mg Famotidine (Pepcid) 20 mg PO BID [facility] Last Admin: 04/25/18 08:36 Dose: 20 mg Ferrous Sulfate (Feosol) 325 mg PO [facility] Last Admin: 04/25/18 08:35 Dose: 325 mg Guaifenesin (Robitussin Sf) 200 mg PO Q4H PRN PRN Reason: Cough Hydralazine HCl (Apresoline) 10 mg SLOW IVP Q4H PRN PRN Reason: SBP > 180 and HR < 70 Levothyroxine Sodium (Synthroid) 100 mcg PO 0600 [facility] Last Admin: 04/25/18 06:41 Dose: 100 mcg Metoclopramide HCl (Reglan) 10 mg PO [facility] Last Admin: 04/25/18 11:35 Dose: 10 mg Ondansetron HCl (Zofran) 4 mg IVP Q6H PRN PRN Reason: Nausea/Vomiting Last Admin: 04/24/18 21:01 Dose: 4 mg Ondansetron HCl (Zofran Odt) 4 mg PO Q12H PRN PRN Reason: Nausea/Vomiting Pantoprazole Sodium (Protonix) 40 mg PO DAILY [facility] Last Admin: 04/25/18 08:37 Dose: 40 mg Prednisone (Prednisone) 20 mg PO BID[facility] Last Admin: 04/25/18 08:36 Dose: 20 mg Senna/Docusate Sodium (Senokot S) 2 tab PO BID PRN PRN Reason: Constipation Sertraline HCl (Zoloft) 50 mg PO DAILY [facility] Last Admin: 04/25/18 08:37 Dose: 50 mg Sodium Chloride ([place] Nasal [place] 0.65%) 0 ml EA NARE QIDPRN PRN PRN Reason: Nasal Congestion Sodium Chloride (Flush - Normal Saline) 10 ml IVF Q12HR [facility] Last Admin: 04/25/18 08:38 Dose: 10 ml Sodium Chloride (Flush - Normal Saline) 10 ml IVF PRN PRN PRN Reason: Saline Flush Last Admin: 04/24/18 14:27 Dose: 10 ml Tramadol HCl (Ultram) 50 mg PO BIDPRN PRN PRN Reason: Pain
[2018-04-25] MEDS: Atorvastatin Calcium 10 MG TAB PO SCH (21:21)
[2018-04-25] MEDS: Amitriptyline HCl 100 MG TAB PO SCH (21:21)
[2018-04-26 06:23] LABS: #Basophils 0.1 thou/uL (0.0-0.2); #Lymphocytes 1.7 thou/uL (1.20-3.40); #Monocytes 0.8 thou/uL (0.11-0.59); #Neutrophils 7.5 thou/uL (1.40-6.50); %Basophils 0.6 % (0.0-1.0); %Eosinophils 0.3 % (0.0-10.0); %Lymphocytes 16.7 % (21.0-51.0); %Monocytes 8.2 % (0.0-10.0); %Neutrophils 74.1 % (42.0-75.0); Hemoglobin 13.1 g/dL (12.0-16.0); Mean Corpuscular HGB CONC 32.3 g/dL (32.0-36.0); Mean Corpuscular Hemoglobin 29.9 pg (27.0-31.0); Mean Corpuscular Volume 92.8 fL (78.0-98.0); Mean Platelet Volume 7.7 fL (7.4-10.4); Platelet Count 222 thou/uL (130-400); RBC Distribution Width 13.7 % (11.5-14.5); Red Blood Cell (RBC) Count 4.37 mill/uL (4.20-5.40); White Blood Cell (WBC) Count 10.1 thou/uL (4.8-10.8)
[2018-04-26] MEDS: Levothyroxine Sodium 100 MCG TAB PO SCH (06:31)
[2018-04-26 06:52] LABS: Anion Gap 10 mmol/L (10-20); BUN (Urea Nitrogen) 13 mg/dL (9.8-20.1); Calc. Creatinine Clearance 47 mL/min (70-130); Calcium 9.3 mg/dL (7.8-10.44); Carbon Dioxide 28 mmol/L (23-31); Chloride 99 mmol/L (98-107); Estimated GFR-MDRD 83; Glucose 97 mg/dL (83-110); Potassium 3.4 mmol/L (3.5-5.1); Sodium 134 mmol/L (136-145)
[2018-04-26] MEDS: Alogliptin 6.25 MG TAB PO SCH (08:38)
[2018-04-26] MEDS: Metoclopramide HCl 10 MG TAB PO SCH ×2 (08:38→11:34)
[2018-04-26] MEDS: predniSONE 20 MG TAB PO SCH (08:38)
[2018-04-26] MEDS: Famotidine 20 MG TAB PO SCH (08:38)
[2018-04-26] MEDS: Lactinex Tablet PO SCH (08:38)
[2018-04-26] MEDS: Aspirin 81 mg Enteric Coated Tablet PO SCH (08:39)
[2018-04-26] MEDS: Enoxaparin Sodium 40 MG/0.4 ML SYRINGE SC SCH (08:39)
[2018-04-26] MEDS: Ubidecarenone 50 MG CAP PO SCH (08:39)
[2018-04-26] MEDS: Ferrous Sulfate 325 MG TAB PO SCH (08:39)
[2018-04-26 11:34] VITALS: TEMP 98.3
[2018-04-26 13:39] VITALS: BP 118/72
--- NOTE | 2018-04-26 21:24 | DIS ---
DATE OF ADMISSION: 04/22/2018 DATE OF DISCHARGE: 04/26/2018 PRIMARY CARE PHYSICIAN: Dr. Juan Ball. DISCHARGE DISPOSITION: [facility] at [place]. DISCHARGE DIAGNOSES: 1. Demand ischemia, acute coronary syndrome ruled out. 2. Generalized weakness under the care of neurology, Dr. 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 3. Hypothyroidism. 4. History of peptic ulcer disease. DISCHARGE MEDICATIONS: Remain the same as admission medication as follows: Prednisone 20 mg p.o. b. i.d., Excedrin p.r.n., omeprazole 20 mg daily, CoQ10 daily, ferrous gluconate 75 mg daily, probiotic daily, Januvia 25 mg daily, sertraline 50 mg daily, Synthroid 100 mcg daily, B12 as needed as directe d, Elavil 100 mg at bedtime, Xanax t.i.d. p.r.n., tramadol p.r.n., aspirin 81 mg daily. INHOUSE CONSULTATIONS: Cardiology, Dr. Mike. PROCEDURES DONE IN THE HOSPITAL: 1. Transthoracic echocardiogram, which is EF of 50%-55% and diastolic dysfunction. 2. Nuclear medicine stress test, which is unremarkable. No evidence of fixed or reversible defect. EF estimated at 51%. HISTORY: Ms. Noble is a very pleasant 82-year-old female with recent diagnosis of some sort of agnes lizette as an outpatient by Dr. Garcia on high dose steroids: presented to the emergency room for comp laints of progressive weakness and in the ER and was found to have elevated cardiac enzymes. Her EKG showed some PACs and incomplete right bundle branch block. She was given one dose of therapeutic Lo venox and was admitted for further cardiac evaluation. Cardiology was consulted. Please see admissi on history and physical for further details. HOSPITAL COURSE: Ms. Noble underwent cardiac evaluation in the form of echocardiogram, nuclear med icine stress test. She was seen by Dr. Mike. There was some question of atrial fibrillation, bu t this was also ruled out. ACS was ruled out. Her cardiac enzymes were trended and they trended chetna n. She was continued on aspirin. The patient cannot take statin, because of her myopathy. Echo valencia d EF about 50% and stress test was negative for ACS. She did have a code green situation when she became vasovagal sitting on the toilet. Vital signs pato cked at that time showed hypotension which quickly recovered after some fluid resuscitation and the p atient was stable afterwards. She was monitored over the next 2 days and had no further events. No arrhythmias were noticed on the monitor either. She was cleared by Dr. Mike for discharge as of yesterday. After discussion with the patient and family, rehab was arranged for her and she was acce pted at [facility] this morning and will be discharged. PHYSICAL EXAMINATION: She was seen and examined prior to discharge. this morning, VITAL SIGNS: Tem perature 98.3, pulse of 83, respirations 16, saturating 97% on room air, blood pressure 102/59. GENERAL: No acute distress, awake, alert, oriented x3. CHEST: Clear to auscultation bilaterally. HEART: Rate and rhythm is regular. The patient needs rehabilitation and also needs continuation of high dose steroids until she is seen by Dr. Barber Garcia in the outpatient Neurology clinic for unknown type of myopathy. At this point, she is ready for the next level of care. [facility]. Total time spent in the discharge 32 minutes.
--- NOTE | 2018-04-27 11:21 | EKG ---
Test Reason : Blood Pressure : / mmHG Vent. Rate : 088 BPM Atrial Rate : 277 BPM P-R Int : 000 ms QRS Dur : 108 ms QT Int : 388 ms P-R-T Axes : 000 -87 088 degrees QTc Int : 469 ms Atrial fibrillation Incomplete right bundle branch block Left anterior fascicular block Septal infarct , age undetermined Lateral infarct , age undetermined Abnormal ECG Too much artifact present for interpretation Confirmed by GIOVANNA PINEDA, BHASKAR ([id number]), graphic editor OLEGARIO DEL RIO ([id number]) on 04/27/2018 11:21:29 AM Referred By: Confirmed By:BHASKAR HEREDIA MD
--- NOTE | 2018-04-27 11:22 | EKG ---
Test Reason : Blood Pressure : / mmHG Vent. Rate : 078 BPM Atrial Rate : 133 BPM P-R Int : 000 ms QRS Dur : 110 ms QT Int : 408 ms P-R-T Axes : 000 -82 043 degrees QTc Int : 465 ms Atrial fibrillation Left axis deviation Incomplete right bundle branch block Septal infarct , age undetermined Abnormal ECG Confirmed by GIOVANNA PINEDA, BHASKAR ([id number]), editor at large OLEGARIO DEL RIO ([id number]) on 04/27/2018 11:21:55 AM Referred By: Confirmed By:BHASKAR HEREDIA MD
== END 2018-04-26 15:31 | DRG 387 ==
LOC: ERS 14:19 → ERHOLD 16:27 → 2NO 21:11
PROVIDERS: ADMIT Internal Medicine; ATTEND Internal Medicine
DX: K50.90 Crohn's disease, unspecified, without complications (principal); R53.1 Weakness; I48.2 Chronic atrial fibrillation; K21.9 Gastro-esophageal reflux disease without esophagitis; E78.5 Hyperlipidemia, unspecified; K27.9 Peptic ulcer, site unspecified, unspecified as acute or chronic, without hemorrhage or perforation; M19.90 Unspecified osteoarthritis, unspecified site; F32.9 Major depressive disorder, single episode, unspecified; E03.9 Hypothyroidism, unspecified; Z66 Do not resuscitate
CPT/HCPCS: 36415; 36416; 71045; 78452; 80048; 80053; 80061; 81003; 82553; 83690; 83880; 84443; 84484; 85025; 93005; 93010; 93017; 93306; 96361; 96372; 96374; A9500; G8978-GP-CL; G8979-GP-CJ; G8987-GO-CK; G8988-GO-CJ; J0153; J1650; J2405; J7506

== ENCOUNTER 2018-05-06 14:46 | Emergency (ER) | payer MEDICARE | END 2018-05-06 15:20 | disposition home or self-care (01) | LOC: SCSER 14:46 | DX: I10 Essential (primary) hypertension (principal); K21.9 Gastro-esophageal reflux disease without esophagitis; K58.9 Irritable bowel syndrome, unspecified; E78.5 Hyperlipidemia, unspecified; M19.90 Unspecified osteoarthritis, unspecified site; F32.9 Major depressive disorder, single episode, unspecified; I95.1 Orthostatic hypotension; Z86.73 Personal history of transient ischemic attack (TIA), and cerebral infarction without residual deficits; Z87.891 Personal history of nicotine dependence; Z79.82 Long term (current) use of aspirin; Z79.891 Long term (current) use of opiate analgesic; Z79.899 Other long term (current) drug therapy | CPT/HCPCS: 99285 ==

== ENCOUNTER 2018-05-30 08:49 | Emergency (ER) | payer MEDICARE ==
[2018-05-30] MEDS ORDERED: Ondansetron PF 4 MG/2 ML Vial ONE (09:18)
[2018-05-30 09:25] LABS: #Monocytes 0.2 thou/uL (0.11-0.59); #Neutrophils 4.3 thou/uL (1.40-6.50); %Eosinophils 0.6 % (0.0-10.0); %Lymphocytes 18.2 % (21.0-51.0); %Monocytes 3.8 % (0.0-10.0); %Neutrophils 77.4 % (42.0-75.0); Hemoglobin 11.7 g/dL (12.0-16.0); Mean Corpuscular HGB CONC 34.1 g/dL (32.0-36.0); Mean Corpuscular Hemoglobin 31.8 pg (27.0-31.0); Mean Corpuscular Volume 93.1 fL (78.0-98.0); Mean Platelet Volume 7.8 fL (7.4-10.4); Platelet Count 125 thou/uL (130-400); RBC Distribution Width 13.8 % (11.5-14.5); Red Blood Cell (RBC) Count 3.68 mill/uL (4.20-5.40); White Blood Cell (WBC) Count 5.6 thou/uL (4.8-10.8)
[2018-05-30 09:55] LABS: ALT (SGPT) 46 U/L (8-55); AST (SGOT) 26 U/L (5-34); Albumin 2.7 g/dL (3.4-4.8); Alkaline Phosphatase 71 U/L (40-150); Anion Gap 7 mmol/L (10-20); BUN (Urea Nitrogen) 27 mg/dL (9.8-20.1); Bilirubin, Total 0.4 mg/dL (0.2-1.2); Calc. Creatinine Clearance 0 mL/min (70-130); Calcium 9.5 mg/dL (7.8-10.44); Carbon Dioxide 33 mmol/L (23-31); Chloride 99 mmol/L (98-107); Estimated GFR-MDRD 86; Globulin 2.1 g/dL (2.4-3.5); Glucose 69 mg/dL (83-110); Lipase 15 U/L (8-78); Protein, Total 4.8 g/dL (6.0-8.3); Sodium 135 mmol/L (136-145)
--- NOTE | 2018-05-30 10:48 | CT ---
CT ABDOMEN AND PELVIS WITH CONTRAST: Date: 05/30/18 COMPARISON: 10/05/16. HISTORY: Nausea and vomiting for past 3 days. Constipation for the past week. TECHNIQUE: Multiple contiguous axial images were obtained in a CT of the abdomen and pelvis with contrast. Coron al reformats were performed. FINDINGS: The patient is status post cholecystectomy. There is enlargement of the common bile duct and central intrahepatic biliary tree which may be a reservoir effect from prior cholecystectomy. These findings are stable compared to the prior examination. No focal liver lesions are seen. The kidneys, adrenal g lands, spleen, and pancreas are unremarkable. No free air, free fluid, or stranding changes are seen in the abdomen or pelvis. The reproductive org ans are atrophic. The urinary bladder is very distended. Moderate stool retention is seen in the colo n. The small bowel is unremarkable. Degenerative changes are seen in the spine. The visualized inferior thorax is unremarkable. No abdomi nal or pelvic lymphadenopathy seen. IMPRESSION: 1. Distention of the urinary bladder. 2. Moderate stool retention in the colon. 3. Enlargement of the biliary tree is likely a reservoir effect from prior cholecystectomy. POS: HECTOR
[2018-05-30] MEDS ORDERED: Metoclopramide HCl 10 MG/2 ML VIAL ONE ×2 (11:14→11:16)
[2018-05-30 12:53] LABS: Bilirubin Negative (Negative); Blood, Urine Negative (Negative); Clarity TURBID (Clear); Glucose, Urine (Dipstick) Negative (Negative); Leukocyte Negative (Negative); Nitrite Negative (Negative); Protein, Urine (Dipstick) Trace mg/dL (Neg-Trace); Specific Gravity, Urine 1.042 (1.002-1.036); pH, Urine 8.5 (5.0-9.0)
[2018-05-30] MEDS ORDERED: ISOVUE-370 76%-LOCM 1 ML ONE (13:16)
--- NOTE | 2018-06-01 20:05 | EKG ---
Test Reason : Blood Pressure : / mmHG Vent. Rate : 078 BPM Atrial Rate : 288 BPM P-R Int : 000 ms QRS Dur : 112 ms QT Int : 424 ms P-R-T Axes : 000 -79 086 degrees QTc Int : 483 ms Uninterpretable due to artifact Appears Sinus Left Anterior Fascicular Block Confirmed by ILYA HUERTA DO ([id number]), sound editor STEVE CHAN ([id number]) on 06/01/2018 8:05:01 PM Referred By: Confirmed By:ILYA HUERTA DO
== END 2018-05-30 13:58 | disposition home or self-care (01) ==
LOC: ERS 08:49
DX: R11.2 Nausea with vomiting, unspecified (principal); R33.9 Retention of urine, unspecified; Z87.891 Personal history of nicotine dependence
CPT/HCPCS: 36415; 51702; 74177; 80053; 81003; 83690; 85025; 93005; 96361; 96374; J2405; J2765

== ENCOUNTER 2018-06-02 08:25 | Inpatient (IN) | payer MEDICARE ==
[2018-06-02 09:28] LABS: #Lymphocytes 1.5 thou/uL (1.20-3.40); #Monocytes 0.2 thou/uL (0.11-0.59); #Neutrophils 4.3 thou/uL (1.40-6.50); %Basophils 0.7 % (0.0-1.0); %Eosinophils 0.5 % (0.0-10.0); %Lymphocytes 24.4 % (21.0-51.0); %Monocytes 3.3 % (0.0-10.0); %Neutrophils 71.1 % (42.0-75.0); Hemoglobin 11.7 g/dL (12.0-16.0); Mean Corpuscular HGB CONC 33.2 g/dL (32.0-36.0); Mean Corpuscular Hemoglobin 31.7 pg (27.0-31.0); Mean Corpuscular Volume 95.5 fL (78.0-98.0); Mean Platelet Volume 8.1 fL (7.4-10.4); Platelet Count 141 thou/uL (130-400); RBC Distribution Width 14.2 % (11.5-14.5)
[2018-06-02 09:39] LABS: Bilirubin Small (Negative); Blood, Urine Large (Negative); Clarity CLOUDY (Clear); Glucose, Urine (Dipstick) Negative (Negative); Leukocyte Moderate (Negative); Nitrite Positive (Negative); Protein, Urine (Dipstick) Negative (Neg-Trace); Specific Gravity, Urine 1.023 (1.002-1.036); pH, Urine 6.5 (5.0-9.0)
[2018-06-02 09:42] LABS: Bacteria/HPF 4+ HPF (None Seen); RBC/HPF GREATER THAN 50-TNTC HPF (0-3); Squamous Epithelial 0-3 HPF (0-3)
[2018-06-02 09:47] LABS: Pathc Cast-AUWi Flag 3.92 (0-2.49)
[2018-06-02 09:47] LABS: ALT (SGPT) 49 U/L (8-55); AST (SGOT) 28 U/L (5-34); Albumin 2.6 g/dL (3.4-4.8); Alkaline Phosphatase 77 U/L (40-150); Anion Gap 10 mmol/L (10-20); BUN (Urea Nitrogen) 21 mg/dL (9.8-20.1); Bilirubin, Total 0.4 mg/dL (0.2-1.2); CK (CPK) 36 U/L (29-168); Calc. Creatinine Clearance 0 mL/min (70-130); Carbon Dioxide 28 mmol/L (23-31); Chloride 99 mmol/L (98-107); Estimated GFR-MDRD 86; Globulin 2.1 g/dL (2.4-3.5); Glucose 65 mg/dL (83-110); Lipase 14 U/L (8-78); Potassium 3.9 mmol/L (3.5-5.1); Protein, Total 4.7 g/dL (6.0-8.3); Sodium 133 mmol/L (136-145)
[2018-06-02 10:16] LABS: CKMB 7.9 ng/mL (0-6.6); Troponin I 0.613 ng/mL (< 0.028)
[2018-06-02 12:58] LABS: Critical Call Chem Troponin I RESULT DECREASING; Troponin I 0.599 ng/mL (< 0.028)
[2018-06-02] MEDS ORDERED: Acetaminophen 325 MG/10.15 ML UDCUP ONE (14:32)
[2018-06-02] MEDS ORDERED: Dicyclomine 20 MG TAB PO PRN (15:19)
[2018-06-02] MEDS ORDERED: Dextrose 50% Abboject 50 ML SYRINGE SLOW IVP PRN (15:19)
[2018-06-02] MEDS ORDERED: traMADol HCl 50 MG TAB PO PRN (15:19)
[2018-06-02] MEDS ORDERED: Nitroglycerin 0.4 MG TAB (25 Tab Bottle) PO PRN (15:19)
[2018-06-02] MEDS ORDERED: Dextrose 5% in Water 1,000 ML IV PRN (15:19)
[2018-06-02] MEDS ORDERED: Guaifenesin DM 100-10/5 ML UDCUP PO PRN (15:19)
[2018-06-02] MEDS ORDERED: ALPRAZolam 0.25 MG TAB PO PRN (15:19)
[2018-06-02] MEDS ORDERED: HumaLOG 300 UNITS/3 ML VIAL SC PRN (15:19)
[2018-06-02] MEDS ORDERED: Bisacodyl 10 MG SUPP PR PRN (15:19)
[2018-06-02] MEDS ORDERED: Fleet Enema 133 ML BOT PR SCH (15:30)
[2018-06-02 15:57] LABS: Troponin I 0.673 ng/mL (< 0.028)
[2018-06-02] MEDS ORDERED: Ondansetron ODT 4 MG TAB SL PRN (21:10)
[2018-06-02] MEDS ORDERED: Ondansetron PF 4 MG/2 ML Vial IVP PRN (21:10)
[2018-06-02] MEDS: Carvedilol 3.125 MG TAB PO SCH (22:14)
[2018-06-02] MEDS: Senokot S 8.6-50 MG TAB PO SCH (22:36)
[2018-06-02] MEDS: Famotidine 20 MG TAB PO SCH (22:37)
[2018-06-02] MEDS: Amitriptyline HCl 100 MG TAB PO SCH (22:37)
[2018-06-03] MEDS: Levothyroxine Sodium 100 MCG TAB PO SCH (04:51)
[2018-06-03 06:32] LABS: #Lymphocytes 1.5 thou/uL (1.20-3.40); #Monocytes 0.3 thou/uL (0.11-0.59); #Neutrophils 7.5 thou/uL (1.40-6.50); %Basophils 0.4 % (0.0-1.0); %Eosinophils 0.1 % (0.0-10.0); %Lymphocytes 15.8 % (21.0-51.0); %Monocytes 3.3 % (0.0-10.0); %Neutrophils 80.3 % (42.0-75.0); Hemoglobin 11.6 g/dL (12.0-16.0); Mean Corpuscular HGB CONC 33.3 g/dL (32.0-36.0); Mean Corpuscular Hemoglobin 31.6 pg (27.0-31.0); Mean Platelet Volume 8.5 fL (7.4-10.4); Platelet Count 120 thou/uL (130-400); RBC Distribution Width 14.1 % (11.5-14.5); Red Blood Cell (RBC) Count 3.66 mill/uL (4.20-5.40); White Blood Cell (WBC) Count 9.4 thou/uL (4.8-10.8)
[2018-06-03 06:43] LABS: Anion Gap 11 mmol/L (10-20); BUN (Urea Nitrogen) 25 mg/dL (9.8-20.1); Calc. Creatinine Clearance 38 mL/min (70-130); Calcium 8.5 mg/dL (7.8-10.44); Carbon Dioxide 27 mmol/L (23-31); Cardiac Risk 3.6 (Less than 4.5); Chloride 101 mmol/L (98-107); Cholesterol 185 mg/dl (< 200 Desired); Estimated GFR-MDRD 85; Glucose 61 mg/dL (83-110); HDL Cholesterol 51 mg/dL (>60 Neg Risk); LDL Cholesterol, Calculated 94 mg/dL; Potassium 3.5 mmol/L (3.5-5.1); Sodium 135 mmol/L (136-145); Triglycerides 202 mg/dL (Less than 150)
--- NOTE | 2018-06-03 07:50 | HP ---
REASON FOR ADMISSION: Syncope, deconditioning. HISTORY OF PRESENTING ILLNESS: The patient gives history of being constipated for nearly seven days now. She is currently living at [facility] an assisted living facility. She had one person to help her out as it was an assisted living place. She was trying to make her sit up, but the patient apparently became unresponsive and EMS was summoned. The exact details of her unresponsiveness are not available at present. EMS brought her to the emergency room here. The patient was told at the assisted living place that she needs a higher level of care as one person cannot take care of her. She has not been able to ambulate and has been wheelchair bound from last many weeks now. She was initially at [facility]; from there, she was transferred to [facility]. She has no complaints of chest pain or palpitation. No complaints of shortness of breath. The patient is a frail lady. Has no complaints of cough or expectoration. PAST MEDICAL AND SURGICAL HISTORY: History of hypertension, moderate concentric LVH on a recent echo done in April with EF of 50 to 55%. There was diastolic dysfunction. She has had a stress test done on 04/24, which showed wall motion was normal and her stress test was unremarkable, history of pulseless electrical activity with cardiac arrest after an EGD in 12/2016, peptic ulcer disease, dyslipidemia, osteoarthritis, depression, hypothyroidism, TIA, cataract surgery, prior history of tracheostomy and PEG tube with reversal, thyroidectomy, cholecystectomy, cervical spine surgery, stage II sacral decubitus ulcer present on admission. CURRENT MEDICATIONS: The patient is on: 1. Aspirin 81 mg p.o. daily. 2. CoQ10 30 mg p.o. daily. 3. Colace 100 mg p.o. twice daily. 4. Vitamin B12 1000 mcg intramuscular once a month shot. 5. Dicyclomine 20 mg four times daily. 6. Dulcolax suppository p.r.n. 7. Ferrous sulfate 324 mg p.o. daily. 8. Levothyroxine 100 mcg p.o. daily. 9. Midodrine 5 mg p.o. three times daily. 10. MiraLAX 17 g daily. 11. Omeprazole 20 mg daily. 12. Prednisone 20 mg daily. 13. Ultram 50 mg p.o. twice daily p.r.n. 14. Januvia 25 mg 1/4 of a tablet daily. 15. Elavil 100 mg p.o. at bedtime. 16. Sertraline 50 mg p.o. daily. ALLERGIES: LATEX. PERSONAL HISTORY: She does not abuse alcohol or drugs. No history of smoking. She is currently living at [facility] an assisted living facility. FAMILY HISTORY: Multiple family members on her mother's side have had coronary artery disease. On her father's side, multiple members have had MT. CODE STATUS: Full. The patient was a DNR before she changed her mind this morning. She and her at bedside, both want her to be full code. REVIEW OF SYSTEMS: CONSTITUTIONAL: Negative for weight loss or gain, ability to conduct usual activities. SKIN: Negative for rash, itching. EYES: Negative for double vision, pain. ENT/MOUTH: Negative for nose bleeding, neck stiffness, pain, tenderness. CARDIOVASCULAR: Negative for palpitations, dyspnea on exertion, orthopnea. RESPIRATORY: Negative for shortness of breath, wheezing, cough, hemoptysis, fever or night sweats. GASTROINTESTINAL: Negative for poor appetite, abdominal pain, heartburn, nausea , vomiting, constipation, or diarrhea. GENITOURINARY: Negative for urgency, frequency, dysuria, nocturia. MUSCULOSKELETAL: Negative for pain, swelling. NEUROLOGIC/PSYCHIATRIC: Negative for anxiety, depression. ALLERGY/IMMUNOLOGIC: Negative for skin rash, bleeding tendency. PHYSICAL EXAMINATION: GENERAL: The patient is an 82-year-old female, who is currently not in any acute distress. VITAL SIGNS: Blood pressure 132/60, pulse 74 per minute, respiratory rate 16 per minute, temperature 97.7 degrees Fahrenheit, saturating 95% on room air. NECK: Supple. No elevated JVD. EYES: Extraocular muscles intact. Pupils reacting to light. ORAL CAVITY: Mucous membranes are dry. No exudates or congestion. CARDIOVASCULAR SYSTEM: S1, S2 heard. Regular rhythm. RESPIRATORY SYSTEM: Air entry 1+ bilateral. Scattered rhonchi, plus no rales or wheezes. ABDOMEN: Soft. Bowel sounds heard. No tenderness, rigidity, or guarding. EXTREMITIES: No peripheral edema or calf tenderness. The patient has stage II sacral decubitus. VASCULAR SYSTEM: Peripheral pulses 1+ bilateral. No ischemic ulcerations or gangrene. CENTRAL NERVOUS SYSTEM: No gross focal deficits noted. The patient is lethargic, but oriented well. PSYCHIATRIC SYSTEM: The patient's mood is euthymic. No hallucinations or delusions. DIAGNOSTIC STUDIES: EKG done shows sinus rhythm at 75 beats per minute. There is RBBB seen. QRS duration is 116 milliseconds. White count of 6, H and H 11 and 35, platelet count 141, MCV is 95, with 71% neutrophils. Sodium 133, serum bicarb 28, BUN 21, creatinine 0.6, serum glucose 65. Liver enzymes within normal limits. Albumin is 2.6. CK-MB 7.9, troponin I 0.61. Lipase is 14. UA is positive for nitrite, moderate leuk esterase, greater than 50 wbc's and 4+ bacteria. Please note, patient has an indwelling Padron catheter. CLINICAL IMPRESSION AND PLAN: The patient will be admitted to telemetry for [id number] myocardial infarction, syncope, progressive deconditioning and weight loss. The patient also has constipation and has not passed stool for almost a week now. She has had a recent stress test and echo done in April. We will continue her on aspirin, Coreg, amitriptyline, Xanax, ferrous sulfate, prednisone, levothyroxine, omeprazole, sertraline, COQ10 as before. Cardiology consultation with Dr. Mike will be requested per patient request. The patient is a frail 82-year-old female who has had progressive deconditioning and is essentially bedbound now. The patient also needs a care home placement. The patient revoked her DNR this morning after she discussed with her . She is a full code at present. We will involve palliative care consultation as well. She has had mild hypoglycemia this morning. Her Januvia will be held and the patient will be closely monitored with Accu-Cheks before meals and at bedtime. Oral intake will be encouraged. If needed, Megace will be added based on her oral intake. PT, OT evaluations, and Case Management consultation will be requested. Job ID: [id number] [facility]
[2018-06-03] MEDS: Ubidecarenone 50 MG CAP PO SCH (09:50)
[2018-06-03] MEDS: predniSONE 20 MG TAB PO SCH (09:52)
[2018-06-03] MEDS: Enoxaparin Sodium 30 MG/0.3 ML SYRINGE SC SCH (09:52)
[2018-06-03] MEDS: Lactinex Tablet PO SCH (09:53)
[2018-06-03] MEDS: Senokot S 8.6-50 MG TAB PO SCH ×2 (09:53→20:28)
[2018-06-03] MEDS: Aspirin 325 MG TAB PO SCH (09:53)
[2018-06-03] MEDS: Ferrous Gluconate 324 MG TAB PO SCH (09:53)
[2018-06-03] MEDS: Carvedilol 3.125 MG TAB PO SCH ×2 (09:53→20:28)
[2018-06-03] MEDS: Famotidine 20 MG TAB PO SCH ×2 (09:54→20:28)
[2018-06-03] MEDS: Polyethylene Glycol 3350 17 GM Packet PO SCH (09:54)
--- NOTE | 2018-06-03 11:04 | PDOC.PN ---
- Subjective Encounter Start Date: 06/03/18 Encounter Start Time: 09:30 Subjective: lethargic, not eating much -: feels dizzy with low sbp around 90's -: family at bedside - Objective Resuscitation Status - Order Detail: 06/02/18 15:14 Resuscitation Status Routine Resuscitation Status: FULL: Full Resuscitation MAR Reviewed: Yes Vital Signs & Weight: Vital Signs (12 hours) Temp Pulse Resp BP Pulse Ox 06/03/18 08:06 98.6 F 87 22 H 92/54 L 96 06/03/18 04:13 90/50 L 06/03/18 04:00 98.3 F 83 20 92 L Weight Weight 79 lb 4.8 oz Result Diagrams: 06/03/18 05:18 06/03/18 05:19 Additional Labs: Accuchecks 06/03/18 06/03/18 06/03/18 05:28 04:01 01:00 POC Glucose 81 71 62 L Phys Exam - Physical Examination HEENT: PERRLA, sclera anicteric dry mucosa Neck: no JVD, supple Respiratory: no wheezing, no rales Cardiovascular: RRR, no significant murmur Gastrointestinal: soft, non-tender, positive bowel sounds Musculoskeletal: no edema, pulses present sacral decub stage 2 Neurological: non-focal, moves all 4 limbs Dx/Plan (1) Syncope Code(s): R55 - SYNCOPE AND COLLAPSE Status: Acute Qualifiers: Syncope type: unspecified Qualified Code(s): R55 - Syncope and collapse (2) FTT (failure to thrive) in adult Status: Acute (3) Dyslipidemia Code(s): E78.5 - HYPERLIPIDEMIA, UNSPECIFIED Status: Chronic (4) Moderate protein malnutrition Code(s): E44.0 - MODERATE PROTEIN-CALORIE MALNUTRITION Status: Chronic (5) Demand ischemia of myocardium Code(s): I24.8 - OTHER FORMS OF ACUTE ISCHEMIC HEART DISEASE Status: Acute (6) Generalized weakness Code(s): R53.1 - WEAKNESS Status: Chronic (7) Hypoglycemia Code(s): E16.2 - HYPOGLYCEMIA, UNSPECIFIED Status: Acute (8) Hypothyroidism Code(s): E03.9 - HYPOTHYROIDISM, UNSPECIFIED Status: Chronic Qualifiers: Hypothyroidism type: unspecified Qualified Code(s): E03.9 - Hypothyroidism , unspecified (9) Peptic ulcer disease Code(s): K27.9 - PEPTIC ULC, SITE UNSP, UNSP AC OR CHR, W/O HEMOR OR PERF Status: Chronic (10) Weight loss, non-intentional Code(s): R63.4 - ABNORMAL WEIGHT LOSS Status: Chronic - Plan she is very frail, poor oral intake, bed bound and progressive decline -: palliative consultation, she revoked her DNR yesterday -: gentle iv fluids, small dose coreg, encourage po intake -: continue prednisone and asp as before -: d/w family at bedside about poor prognosis * . Needs placement Review of Systems - Medications/Allergies Allergies/Adverse Reactions: Allergies Allergy/AdvReac Type Severity Reaction Status Date / Time latex Allergy Mild Verified 04/22/18 22:52 Medications: Current Medications Acetaminophen (Tylenol) 650 mg PO Q4H PRN PRN Reason: Headache/Fever/Mild Pain (1-3) Acidophilus (Floranex) 1 tab PO DAILY [facility] Last Admin: 06/03/18 09:53 Dose: 1 tab Alprazolam (Xanax) 0.25 mg PO TID PRN PRN Reason: Anxiety Last Admin: 06/03/18 04:51 Dose: 0.25 mg Amitriptyline HCl (Elavil) 100 mg PO HS [facility] Last Admin: 06/02/18 22:37 Dose: 100 mg Aspirin (Aspirin) 325 mg PO DAILY [facility] Last Admin: 06/03/18 09:53 Dose: 325 mg Bisacodyl (Dulcolax) 10 mg [place] DAILYPRN PRN PRN Reason: Constipation Carvedilol (Coreg) 3.125 mg PO BID [facility] Last Admin: 06/03/18 09:53 Dose: 3.125 mg Coenzyme Q10 (Coenzyme Q10) 50 mg PO DAILY [facility] Last Admin: 06/03/18 09:50 Dose: 50 mg Dextrose/Water (Dextrose 50%) 25 gm SLOW IVP PRN PRN PRN Reason: Hypoglycemia Dicyclomine HCl (Bentyl) 20 mg PO QID PRN PRN Reason: abdominal pain Enoxaparin Sodium (Lovenox) 30 mg SC 0900 [facility] Last Admin: 06/03/18 09:52 Dose: 30 mg Famotidine (Pepcid) 20 mg PO BID [facility] Last Admin: 06/03/18 09:54 Dose: 20 mg Ferrous Gluconate (Fergon) 324 mg PO QAM [facility] Last Admin: 06/03/18 09:53 Dose: 324 mg Glucagon (Glucagon) 1 mg IM PRN PRN PRN Reason: Hypoglycemia Guaifenesin/Dextromethorphan (Robitussin Dm) 15 ml PO Q4H PRN PRN Reason: Cough Dextrose/Water (D5w) 1,000 mls @ 0 mls/hr IV .Q0M PRN PRN Reason: Hypoglycemia Dextrose/Sodium Chloride (D5 0.9% Ns) 1,000 mls @ 50 mls/hr IV .Q20H [facility] Insulin Human Lispro (Humalog) 0 units SC .MILD SLIDING SCALE PRN PRN Reason: Mild Correctional Scale Levothyroxine Sodium (Synthroid) 100 mcg PO 0600 [facility] Last Admin: 06/03/18 04:51 Dose: 100 mcg Nitroglycerin (Nitrostat) 0.4 mg PO Q5MIN PRN PRN Reason: Chest Pain Pantoprazole Sodium (Protonix) 40 mg PO DAILY [facility] Last Admin: 06/03/18 09:53 Dose: 40 mg Polyethylene Glycol (Miralax) 17 gm PO DAILY [facility] Last Admin: 06/03/18 09:54 Dose: 17 gm Prednisone (Prednisone) 20 mg PO DAILY [facility] Last Admin: 06/03/18 09:52 Dose: 20 mg Senna/Docusate Sodium (Senokot S) 2 tab PO BID [facility] Last Admin: 06/03/18 09:53 Dose: 2 tab Sertraline HCl (Zoloft) 50 mg PO DAILY [facility] Last Admin: 06/03/18 09:51 Dose: 50 mg Sodium Chloride (Flush - Normal Saline) 10 ml IVF Q12HR [facility] Last Admin: 06/03/18 09:50 Dose: 10 ml Sodium Chloride (Flush - Normal Saline) 10 ml IVF PRN PRN PRN Reason: Saline Flush Tramadol HCl (Ultram) 50 mg PO Q4HR PRN PRN Reason: Pain 4-6
[2018-06-03] MEDS: Dextrose 5 % And 0.9 % NaCl 1,000 ML IV SCH (11:40)
[2018-06-03] MEDS: Acetaminophen 325 MG TAB PO PRN (18:48)
[2018-06-03] MEDS: Amitriptyline HCl 100 MG TAB PO SCH (20:28)
--- NOTE | 2018-06-04 03:23 | CON ---
DATE OF CONSULTATION: HISTORY OF PRESENT ILLNESS: Bianca Noble is a pleasant 82-year-old white female that I evaluated the last time she was in the hospital in April. She did have progressive weakness at home and in March 2011, underwent cardiac catheterization by Dr. Granda with no significant coronary artery disease. She had been followed by Dr. Garcia and found to have some type of myopathy and was placed on steroids. In December 2016, she underwent EGD for evaluation of her weight loss. She had a respiratory arrest and an episode of pulseless electrical activity. She received chest compressions for a short time. EGD was performed for the progressive epigastric pain, also a 40-pound weight loss. She ultimately underwent placement of a tracheostomy and PEG tube and was discharged to [facility]. She apparently had tracheal edema requiring re-intubation prior to placement of the tracheostomy. She then had progressive muscle weakness for a year and apparently had more than 18 falls at home. In April, she was admitted with progressive muscle weakness at home. Troponin I was 0.453. She denied any chest discomfort. She did undergo adenosine Cardiolite testing which revealed no evidence of ischemia. She now is admitted for again increased weakness. She was at [facility], which is an assisted living facility and apparently had a syncopal episode, little is known about that. Ms. Noble is very somnolent at the present time and questions are answered by the and daughter. The family states that she has not complained of any chest pain. MEDICATIONS: 1. Aspirin 81 daily. 2. CoQ10 30 daily. 3. Colace 100 mg b.i.d. 4. Vitamin B12. 5. Dicyclomine 20 mg q.i.d. 6. Dulcolax p.r.n. 7. Ferrous sulfate 324 daily. 8. Levothyroxine 100 mcg daily. 9. Midodrine 5 mg t.i.d. 10. MiraLAX daily. 11. Omeprazole 20 daily. 12. Prednisone 20 daily. 13. Elavil 100 mg at bedtime. 14. Sertraline 50 daily. 15. Ultram 50 b.i.d. 16. Januvia 25 mg one quarter of a tablet daily. ALLERGIES: LATEX. SOCIAL HISTORY: She smoked in the past. She rarely drinks. OPERATIONS: Cholecystectomy, tracheostomy, PEG tube placement, which had been removed, thyroidectomy, cervical spine surgery. REVIEW OF SYSTEMS: A 12-point review of systems unobtainable due to the patient 's somnolence. PHYSICAL EXAMINATION: VITAL SIGNS: Blood pressure 88/50, pulse of 71. HEENT: PERRL. NECK: Supple. CHEST: Clear. CARDIAC: S1 and S2 are normal without any S3, S4, or murmurs. ABDOMEN: Normal bowel sounds. EXTREMITIES: Reveal no clubbing, cyanosis, or edema. NEURO: The patient is very cachectic. LABORATORY DATA: EKG reveals normal sinus rhythm with left axis deviation, right bundle-branch block. Hemoglobin 11.6, hematocrit 34.8, white count 9400, platelets 120,000. Sodium 135, potassium 3.5, chloride 101, carbon dioxide 27, BUN 25, creatinine 0.67. Cholesterol 185, triglycerides 202, HDL 51, LDL 94. IMPRESSION: 1. Apparent unresponsiveness in the retirement of uncertain etiology. She has not had any significant bradycardia on the monitor and at times, does have wandering atrial pacemaker. 2. Myopathy with progressive muscle weakness. 3. The patient is essentially bedridden at this time. 4. Wandering atrial pacemaker. 5. History of multiple falls. 6. History of transient ischemic attack. 7. Hyperlipidemia. 8. Hypothyroidism. 9. Status post pulseless electrical activity with cardiac arrest in December 2016 after an EGD that was performed for weight loss and epigastric pain. 10. Osteoarthritis. 11. Depression. PLAN: The patient will be continued on her usual medications. I have not seen any significant arrhythmias. Her biggest problem may certainly be due to her blood pressure with pressures in the 80s and 90s. Job ID: [id number] [facility]
[2018-06-04] MEDS: Levothyroxine Sodium 100 MCG TAB PO SCH (05:45)
[2018-06-04] MEDS: Dextrose 5 % And 0.9 % NaCl 1,000 ML IV SCH (08:20)
--- NOTE | 2018-06-04 09:35 | PQF ---
CLINICAL DOCUMENTATION IMPROVEMENT CLARIFICATION FORM: ICD-10 Updated PLEASE DO AN ADDENDUM TO THE PROGRESS NOTE WITH ANY DOCUMENTATION UPDATES OR ADDITIONS AND CARRY THROUGH TO DC SUMMARY. THANK YOU. DATE: 06/04/18 ATTN : DR. BASS Please exercise your independent, professional judgment in responding to the clarification form. Clinical indicators are provided on the bottom of this form for your review Please check appropriate box(s) to clarify if the following diagnosis has been ruled in or ruled out: NON- ST ELEVATION MYOCARDIAL INFARCTION [ x] Ruled in diagnosis [ ] Continue to treat [ x] Resolved [ ] Ruled out diagnosis [ ] Cannot rule out diagnosis [ ] Other diagnosis [ ] Unable to determine In addition, please specify: Present on Admission (POA): [ x ] Yes [ ] No [ ] Unable to determine For continuity of documentation, please document condition throughout progress notes and discharge summary. Thank You. 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 All Rights Reserved JUSTYN [email or web address] Office: [phone] [facility]
[2018-06-04] MEDS: Senokot S 8.6-50 MG TAB PO SCH ×2 (10:13→20:46)
[2018-06-04] MEDS: Ubidecarenone 50 MG CAP PO SCH (10:14)
[2018-06-04] MEDS: Famotidine 20 MG TAB PO SCH ×2 (10:14→20:46)
[2018-06-04] MEDS: Enoxaparin Sodium 30 MG/0.3 ML SYRINGE SC SCH (10:14)
[2018-06-04] MEDS: predniSONE 20 MG TAB PO SCH (10:15)
[2018-06-04] MEDS: Polyethylene Glycol 3350 17 GM Packet PO SCH ×2 (10:15→10:41)
[2018-06-04] MEDS: Ferrous Gluconate 324 MG TAB PO SCH (10:16)
[2018-06-04] MEDS: Carvedilol 3.125 MG TAB PO SCH ×2 (10:16→20:46)
[2018-06-04] MEDS: Aspirin 325 MG TAB PO SCH (10:17)
[2018-06-04] MEDS: Lactinex Tablet PO SCH (15:16)
--- NOTE | 2018-06-04 15:24 | PDOC.PN ---
- Subjective Encounter Start Date: 06/04/18 Encounter Start Time: 08:15 Subjective: is more awake, conversing today -: not eating much -: daughter in law at bedside - Objective Resuscitation Status - Order Detail: 06/02/18 15:14 Resuscitation Status Routine Resuscitation Status: DNAR: NO Resuscitation Discussed with: d/w and patient at bedside MAR Reviewed: Yes Vital Signs & Weight: Vital Signs (12 hours) Temp Pulse Resp BP Pulse Ox 06/04/18 15:17 98.3 F 62 15 106/56 L 98 06/04/18 12:40 97.8 F 93 18 92/51 L 99 06/04/18 10:05 98.6 F 66 15 97/49 L 94 L 06/04/18 05:43 67 90/50 L 06/04/18 04:00 98.9 F 63 21 H 88/50 L 93 L Weight Admit Weight 79 lb 4.8 oz Weight 93 lb 9.6 oz I&O: 06/03/18 06/04/18 06/05/18 06:59 06:59 06:59 Intake Total 1155 Output Total 520 Balance 635 Result Diagrams: 06/03/18 05:18 06/03/18 05:19 Additional Labs: Accuchecks 06/04/18 06/04/18 06/03/18 10:42 05:23 20:10 POC Glucose 114 H 122 H 111 H 06/03/18 16:59 POC Glucose 98 Phys Exam - Physical Examination HEENT: PERRLA, sclera anicteric dry mucosa Neck: no JVD, supple Respiratory: no wheezing, no rales Cardiovascular: RRR, no significant murmur Gastrointestinal: soft, non-tender, positive bowel sounds Musculoskeletal: no edema, pulses present Neurological: non-focal, moves all 4 limbs Dx/Plan (1) Syncope Code(s): R55 - SYNCOPE AND COLLAPSE Status: Resolved Qualifiers: Syncope type: unspecified Qualified Code(s): R55 - Syncope and collapse (2) FTT (failure to thrive) in adult Status: Acute (3) Dyslipidemia Code(s): E78.5 - HYPERLIPIDEMIA, UNSPECIFIED Status: Chronic (4) Moderate protein malnutrition Code(s): E44.0 - MODERATE PROTEIN-CALORIE MALNUTRITION Status: Chronic (5) Demand ischemia of myocardium Code(s): I24.8 - OTHER FORMS OF ACUTE ISCHEMIC HEART DISEASE Status: Acute (6) Generalized weakness Code(s): R53.1 - WEAKNESS Status: Chronic (7) Hypoglycemia Code(s): E16.2 - HYPOGLYCEMIA, UNSPECIFIED Status: Acute (8) Hypothyroidism Code(s): E03.9 - HYPOTHYROIDISM, UNSPECIFIED Status: Chronic Qualifiers: Hypothyroidism type: unspecified Qualified Code(s): E03.9 - Hypothyroidism , unspecified (9) Peptic ulcer disease Code(s): K27.9 - PEPTIC ULC, SITE UNSP, UNSP AC OR CHR, W/O HEMOR OR PERF Status: Chronic (10) Weight loss, non-intentional Code(s): R63.4 - ABNORMAL WEIGHT LOSS Status: Chronic - Plan awaiting skilled placement -: continue oral cipro for suspected uti, await final cultures ?colonized -: encourage oral intake, ensure 1 can tid, may add megace if needed -: on asp, coreg, midodrine, prednisone -: poor prognosis with multiple med conditions and poor functional status * . Review of Systems - Medications/Allergies Allergies/Adverse Reactions: Allergies Allergy/AdvReac Type Severity Reaction Status Date / Time latex Allergy Mild Verified 04/22/18 22:52 Medications: Current Medications Acetaminophen (Tylenol) 650 mg PO Q4H PRN PRN Reason: Headache/Fever/Mild Pain (1-3) Last Admin: 06/03/18 18:48 Dose: 650 mg Acidophilus (Floranex) 1 tab PO DAILY [facility] Last Admin: 06/04/18 15:16 Dose: 1 tab Alprazolam (Xanax) 0.25 mg PO TID PRN PRN Reason: Anxiety Last Admin: 06/03/18 04:51 Dose: 0.25 mg Amitriptyline HCl (Elavil) 100 mg PO HS [facility] Last Admin: 06/03/18 20:28 Dose: 100 mg Aspirin (Aspirin) 325 mg PO DAILY [facility] Last Admin: 06/04/18 10:17 Dose: 325 mg Bisacodyl (Dulcolax) 10 mg [place] DAILYPRN PRN PRN Reason: Constipation Carvedilol (Coreg) 3.125 mg PO BID [facility] Last Admin: 06/04/18 10:16 Dose: 3.125 mg Ciprofloxacin (Cipro) 500 mg PO 0600,2000 [facility] Coenzyme Q10 (Coenzyme Q10) 50 mg PO DAILY [facility] Last Admin: 06/04/18 10:14 Dose: 50 mg Dextrose/Water (Dextrose 50%) 25 gm SLOW IVP PRN PRN PRN Reason: Hypoglycemia Dicyclomine HCl (Bentyl) 20 mg PO QID PRN PRN Reason: abdominal pain Enoxaparin Sodium (Lovenox) 30 mg SC 0900 [facility] Last Admin: 06/04/18 10:14 Dose: 30 mg Famotidine (Pepcid) 20 mg PO BID [facility] Last Admin: 06/04/18 10:14 Dose: 20 mg Ferrous Gluconate (Fergon) 324 mg PO QAM [facility] Last Admin: 06/04/18 10:16 Dose: 324 mg Glucagon (Glucagon) 1 mg IM PRN PRN PRN Reason: Hypoglycemia Guaifenesin/Dextromethorphan (Robitussin Dm) 15 ml PO Q4H PRN PRN Reason: Cough Dextrose/Water (D5w) 1,000 mls @ 0 mls/hr IV .Q0M PRN PRN Reason: Hypoglycemia Insulin Human Lispro (Humalog) 0 units SC .MILD SLIDING SCALE PRN PRN Reason: Mild Correctional Scale Levothyroxine Sodium (Synthroid) 100 mcg PO 0600 [facility] Last Admin: 06/04/18 05:45 Dose: 100 mcg Midodrine (Proamatine) 5 mg PO BID [facility] Nitroglycerin (Nitrostat) 0.4 mg PO Q5MIN PRN PRN Reason: Chest Pain Pantoprazole Sodium (Protonix) 40 mg PO DAILY [facility] Last Admin: 06/04/18 15:13 Dose: Not Given Polyethylene Glycol (Miralax) 17 gm PO DAILY [facility] Last Admin: 06/04/18 10:41 Dose: Not Given Prednisone (Prednisone) 20 mg PO DAILY [facility] Last Admin: 06/04/18 10:15 Dose: 20 mg Senna/Docusate Sodium (Senokot S) 2 tab PO BID [facility] Last Admin: 06/04/18 10:13 Dose: 2 tab Sertraline HCl (Zoloft) 50 mg PO DAILY [facility] Last Admin: 06/04/18 10:15 Dose: 50 mg Sodium Chloride (Flush - Normal Saline) 10 ml IVF Q12HR [facility] Last Admin: 06/03/18 20:29 Dose: Not Given Sodium Chloride (Flush - Normal Saline) 10 ml IVF PRN PRN PRN Reason: Saline Flush Tramadol HCl (Ultram) 50 mg PO Q4HR PRN PRN Reason: Pain 4-6
[2018-06-04] MEDS: Acetaminophen 325 MG TAB PO PRN (17:14)
[2018-06-04] MEDS: Amitriptyline HCl 100 MG TAB PO SCH (20:45)
[2018-06-04] MEDS: Midodrine HCl 5 MG TAB PO SCH (20:46)
[2018-06-04] MEDS: Ciprofloxacin 500 MG TAB PO SCH (20:46)
[2018-06-05] MEDS: Levothyroxine Sodium 100 MCG TAB PO SCH (05:16)
[2018-06-05] MEDS: Ciprofloxacin 500 MG TAB PO SCH ×2 (05:16→20:30)
[2018-06-05] MEDS: Midodrine HCl 5 MG TAB PO SCH ×3 (08:22→20:31)
[2018-06-05] MEDS: Famotidine 20 MG TAB PO SCH ×2 (08:24→20:31)
[2018-06-05] MEDS: Lactinex Tablet PO SCH (08:25)
[2018-06-05] MEDS: predniSONE 20 MG TAB PO SCH (08:26)
[2018-06-05] MEDS: Polyethylene Glycol 3350 17 GM Packet PO SCH (08:27)
[2018-06-05] MEDS: Senokot S 8.6-50 MG TAB PO SCH ×2 (08:28→20:31)
[2018-06-05] MEDS: Aspirin 325 MG TAB PO SCH (08:30)
[2018-06-05] MEDS: Ferrous Gluconate 324 MG TAB PO SCH (08:31)
[2018-06-05] MEDS: Carvedilol 3.125 MG TAB PO SCH ×2 (08:32→20:31)
[2018-06-05] MEDS: Enoxaparin Sodium 30 MG/0.3 ML SYRINGE SC SCH (08:33)
[2018-06-05] MEDS: Ubidecarenone 50 MG CAP PO SCH (08:37)
[2018-06-05 15:02] VITALS: BMI 18.8
--- NOTE | 2018-06-05 16:00 | PDOC.PN ---
- Subjective Encounter Start Date: 06/05/18 Encounter Start Time: 15:58 Subjective: feels much better. still weak but better than before -: ate a little cheerios this morning - Objective Resuscitation Status - Order Detail: 06/02/18 15:14 Resuscitation Status Routine Resuscitation Status: DNAR: NO Resuscitation Discussed with: d/w and patient at bedside MAR Reviewed: Yes Vital Signs & Weight: Vital Signs (12 hours) Temp Pulse Resp BP BP Pulse Ox 06/05/18 11:15 97.6 F 66 16 101/54 L 99 06/05/18 08:00 96 06/05/18 07:59 97.5 F L 67 16 100/62 96 Weight Admit Weight 79 lb 4.8 oz Weight 93 lb 9.6 oz I&O: 06/04/18 06/05/18 06/06/18 06:59 06:59 06:59 Intake Total 1155 440 Output Total 520 300 Balance 635 140 Result Diagrams: 06/03/18 05:18 06/03/18 05:19 Additional Labs: Accuchecks 06/05/18 06/04/18 06/04/18 03:57 19:12 16:48 POC Glucose 86 158 H 130 H Microbiology 06/03/18 21:00 Stool Escherichia coli 0157 Culture - Final 06/03/18 21:00 Stool Campylobacter Antigen Assay - Final 06/03/18 21:00 Stool Shiga Toxin Test - Final 06/03/18 21:00 Stool Stool Culture - Preliminary 06/03/18 00:16 Urine og catheter Urine Culture - Preliminary Gram Negative Kendrick 06/02/18 16:17 Venous blood - Left Arm Blood Culture - Preliminary NO GROWTH AT 48 HOURS 06/02/18 16:07 Venous blood - Right Arm Blood Culture - Preliminary NO GROWTH AT 48 HOURS Laboratory Tests 03/17/18 04/22/18 04/22/18 11:07 15:06 19:04 Troponin I 0.018 0.453 H* 0.433 H* 04/22/18 04/24/18 04/25/18 21:22 14:05 05:13 Troponin I 0.445 H* 0.438 H* 0.363 H* 06/02/18 06/02/18 06/02/18 09:13 12:11 15:20 Troponin I 0.613 H* 0.599 H* 0.673 H* Phys Exam - Physical Examination Constitutional: NAD thin,frail,cachectic HEENT: PERRLA, moist MMs, sclera anicteric, oral pharynx no lesions Neck: no nodes, no JVD, supple, full ROM Respiratory: no wheezing, no rales, no rhonchi, clear to auscultation bilateral Cardiovascular: RRR, no significant murmur Gastrointestinal: soft, non-tender, no distention, positive bowel sounds Musculoskeletal: no edema, pulses present Neurological: non-focal, normal sensation, moves all 4 limbs Psychiatric: normal affect, A&O x 3 Skin: no rash Dx/Plan (1) Demand ischemia of myocardium Code(s): I24.8 - OTHER FORMS OF ACUTE ISCHEMIC HEART DISEASE Status: Acute (2) FTT (failure to thrive) in adult Status: Acute (3) UTI (urinary tract infection) Status: Acute Comment: GNR on culture so far. on Empiric Ciprofloxacin (4) Dyslipidemia Code(s): E78.5 - HYPERLIPIDEMIA, UNSPECIFIED Status: Chronic (5) Moderate protein malnutrition Code(s): E44.0 - MODERATE PROTEIN-CALORIE MALNUTRITION Status: Chronic (6) Syncope Code(s): R55 - SYNCOPE AND COLLAPSE Status: Resolved Qualifiers: Syncope type: unspecified Qualified Code(s): R55 - Syncope and collapse (7) Generalized weakness Code(s): R53.1 - WEAKNESS Status: Chronic (8) Hypothyroidism Code(s): E03.9 - HYPOTHYROIDISM, UNSPECIFIED Status: Chronic Qualifiers: Hypothyroidism type: unspecified Qualified Code(s): E03.9 - Hypothyroidism , unspecified (9) Myopathy Code(s): G72.9 - MYOPATHY, UNSPECIFIED Status: Chronic Comment: On High dose steroids with OP follow Up with neurology Dr. shipley - Plan continue antibiotics, PT/OT, out of bed/ambulate, DVT proph w/SCDs Medical management with ASA,BB for now. Stress test NL in 04/18.NL EF. -: cont Midodrine.Increase to TID as that is home dose. -: BP bertter -: SNIF when accpeted.Poor prognosis & not candidate for aggressive Rx like Sx -: follow final Cx results. * . Review of Systems - Review of Systems Constitutional: weakness, malaise Respiratory: negative: Cough, Dry, Shortness of Breath, Hemoptysis, SOB with Excertion, Pleuritic Pain, Sputum, Wheezing Cardiovascular: negative: chest pain, palpitations, orthopnea, paroxysmal nocturnal dyspnea, edema, light headedness, other Gastrointestinal: negative: Nausea, Vomiting, Abdominal Pain, Diarrhea, Constipation, Melena, Hematochezia, Other Genitourinary: negative: Dysuria, Frequency, Incontinence, Hematuria, Retention , Other Musculoskeletal: negative: Neck Pain, Shoulder Pain, Arm Pain, Back Pain, Hand Pain, Leg Pain, Foot Pain, Other Skin: negative: Rash, Lesions, Franco, Bruising, Other - Medications/Allergies Allergies/Adverse Reactions: Allergies Allergy/AdvReac Type Severity Reaction Status Date / Time latex Allergy Mild Verified 04/22/18 22:52 Medications: Current Medications Acetaminophen (Tylenol) 650 mg PO Q4H PRN PRN Reason: Headache/Fever/Mild Pain (1-3) Last Admin: 06/04/18 17:14 Dose: 650 mg Acidophilus (Floranex) 1 tab PO DAILY [facility] Last Admin: 06/05/18 08:25 Dose: 1 tab Alprazolam (Xanax) 0.25 mg PO TID PRN PRN Reason: Anxiety Last Admin: 06/03/18 04:51 Dose: 0.25 mg Amitriptyline HCl (Elavil) 100 mg PO HS [facility] Last Admin: 06/04/18 20:45 Dose: 100 mg Aspirin (Aspirin) 325 mg PO DAILY [facility] Last Admin: 06/05/18 08:30 Dose: 325 mg Bisacodyl (Dulcolax) 10 mg [place] DAILYPRN PRN PRN Reason: Constipation Carvedilol (Coreg) 3.125 mg PO BID [facility] Last Admin: 06/05/18 08:32 Dose: 3.125 mg Ciprofloxacin (Cipro) 500 mg PO 0600,2000 [facility] Last Admin: 06/05/18 05:16 Dose: 500 mg Coenzyme Q10 (Coenzyme Q10) 50 mg PO DAILY [facility] Last Admin: 06/05/18 08:37 Dose: Not Given Dextrose/Water (Dextrose 50%) 25 gm SLOW IVP PRN PRN PRN Reason: Hypoglycemia Dicyclomine HCl (Bentyl) 20 mg PO QID PRN PRN Reason: abdominal pain Enoxaparin Sodium (Lovenox) 30 mg SC 0900 [facility] Last Admin: 06/05/18 08:33 Dose: 30 mg Famotidine (Pepcid) 20 mg PO BID [facility] Last Admin: 06/05/18 08:24 Dose: 20 mg Ferrous Gluconate (Fergon) 324 mg PO QAM [facility] Last Admin: 06/05/18 08:31 Dose: 324 mg Glucagon (Glucagon) 1 mg IM PRN PRN PRN Reason: Hypoglycemia Guaifenesin/Dextromethorphan (Robitussin Dm) 15 ml PO Q4H PRN PRN Reason: Cough Dextrose/Water (D5w) 1,000 mls @ 0 mls/hr IV .Q0M PRN PRN Reason: Hypoglycemia Insulin Human Lispro (Humalog) 0 units SC .MILD SLIDING SCALE PRN PRN Reason: Mild Correctional Scale Levothyroxine Sodium (Synthroid) 100 mcg PO 0600 [facility] Last Admin: 06/05/18 05:16 Dose: 100 mcg Midodrine (Proamatine) 5 mg PO TID [facility] Last Admin: 06/05/18 14:33 Dose: 5 mg Nitroglycerin (Nitrostat) 0.4 mg PO Q5MIN PRN PRN Reason: Chest Pain Pantoprazole Sodium (Protonix) 40 mg PO DAILY [facility] Last Admin: 06/05/18 08:28 Dose: 40 mg Polyethylene Glycol (Miralax) 17 gm PO DAILY [facility] Last Admin: 06/05/18 08:27 Dose: Not Given Prednisone (Prednisone) 20 mg PO DAILY [facility] Last Admin: 06/05/18 08:26 Dose: 20 mg Senna/Docusate Sodium (Senokot S) 2 tab PO BID [facility] Last Admin: 06/05/18 08:28 Dose: Not Given Sertraline HCl (Zoloft) 50 mg PO DAILY [facility] Last Admin: 06/05/18 08:29 Dose: 50 mg Sodium Chloride (Flush - Normal Saline) 10 ml IVF Q12HR [facility] Last Admin: 06/05/18 08:34 Dose: Not Given Sodium Chloride (Flush - Normal Saline) 10 ml IVF PRN PRN PRN Reason: Saline Flush Tramadol HCl (Ultram) 50 mg PO Q4HR PRN PRN Reason: Pain 4-6
[2018-06-05] MEDS: Amitriptyline HCl 100 MG TAB PO SCH (20:31)
[2018-06-06] MEDS: Ciprofloxacin 500 MG TAB PO SCH ×2 (04:55→20:56)
[2018-06-06] MEDS: Levothyroxine Sodium 100 MCG TAB PO SCH (04:55)
[2018-06-06] MEDS: Enoxaparin Sodium 30 MG/0.3 ML SYRINGE SC SCH (09:19)
[2018-06-06] MEDS: predniSONE 20 MG TAB PO SCH (09:19)
[2018-06-06] MEDS: Midodrine HCl 5 MG TAB PO SCH ×3 (09:19→20:57)
[2018-06-06] MEDS: Polyethylene Glycol 3350 17 GM Packet PO SCH (09:20)
[2018-06-06] MEDS: Senokot S 8.6-50 MG TAB PO SCH ×2 (09:20→20:56)
[2018-06-06] MEDS: Carvedilol 3.125 MG TAB PO SCH ×2 (09:20→20:57)
[2018-06-06] MEDS: Ferrous Gluconate 324 MG TAB PO SCH (09:20)
[2018-06-06] MEDS: Lactinex Tablet PO SCH (09:20)
[2018-06-06] MEDS: Aspirin 325 MG TAB PO SCH (09:20)
[2018-06-06] MEDS: Famotidine 20 MG TAB PO SCH ×2 (09:20→20:57)
[2018-06-06] MEDS: Ubidecarenone 50 MG CAP PO SCH (09:32)
[2018-06-06] MEDS ORDERED: Megestrol Acetate 40 MG TAB PO SCH (12:45)
--- NOTE | 2018-06-06 14:30 | PDOC.PN ---
- Subjective Encounter Start Date: 06/06/18 Encounter Start Time: 14:29 Subjective: c/o food getting stuck in her throat.poor appetite -: family worried about Og that was inserted in Er 2 weeks ago. - Objective Resuscitation Status - Order Detail: 06/02/18 15:14 Resuscitation Status Routine Resuscitation Status: DNAR: NO Resuscitation Discussed with: d/w and patient at bedside MAR Reviewed: Yes Vital Signs & Weight: Vital Signs (12 hours) Temp Pulse Resp BP Pulse Ox 06/06/18 11:15 97.5 F L 67 18 112/68 98 06/06/18 08:00 97.9 F 67 18 109/64 100 Weight Admit Weight 79 lb 4.8 oz Weight 93 lb 9.6 oz I&O: 06/05/18 06/06/18 06/07/18 06:59 06:59 06:59 Intake Total 440 Output Total 300 600 Balance 140 -600 Result Diagrams: 06/03/18 05:18 06/03/18 05:19 Additional Labs: Accuchecks 06/06/18 06/05/18 06/05/18 11:37 20:30 16:45 POC Glucose 71 95 108 06/05/18 11:14 POC Glucose 96 Microbiology 06/03/18 21:00 Stool Stool Culture - Final 06/03/18 21:00 Stool Escherichia coli 0157 Culture - Final 06/03/18 21:00 Stool Campylobacter Antigen Assay - Final 06/03/18 21:00 Stool Shiga Toxin Test - Final 06/03/18 00:16 Urine og catheter Urine Culture - Preliminary Gram Negative Kendrick 06/02/18 16:17 Venous blood - Left Arm Blood Culture - Preliminary NO GROWTH AT 48 HOURS 06/02/18 16:07 Venous blood - Right Arm Blood Culture - Preliminary NO GROWTH AT 48 HOURS Phys Exam - Physical Examination Constitutional: NAD cachectic HEENT: PERRLA, moist MMs, sclera anicteric, oral pharynx no lesions Neck: no nodes, no JVD, supple, full ROM Respiratory: no wheezing, no rales, no rhonchi Cardiovascular: RRR, no significant murmur Gastrointestinal: soft, non-tender, no distention, positive bowel sounds Musculoskeletal: no edema, pulses present Neurological: non-focal, normal sensation, moves all 4 limbs Psychiatric: normal affect, A&O x 3 Skin: no rash Dx/Plan (1) Demand ischemia of myocardium Code(s): I24.8 - OTHER FORMS OF ACUTE ISCHEMIC HEART DISEASE Status: Acute (2) FTT (failure to thrive) in adult Status: Acute (3) UTI (urinary tract infection) Status: Acute Comment: GNR on culture so far. on Empiric Ciprofloxacin (4) Dyslipidemia Code(s): E78.5 - HYPERLIPIDEMIA, UNSPECIFIED Status: Chronic (5) Moderate protein malnutrition Code(s): E44.0 - MODERATE PROTEIN-CALORIE MALNUTRITION Status: Chronic (6) Syncope Code(s): R55 - SYNCOPE AND COLLAPSE Status: Resolved Qualifiers: Syncope type: unspecified Qualified Code(s): R55 - Syncope and collapse (7) Generalized weakness Code(s): R53.1 - WEAKNESS Status: Chronic (8) Hypothyroidism Code(s): E03.9 - HYPOTHYROIDISM, UNSPECIFIED Status: Chronic Qualifiers: Hypothyroidism type: unspecified Qualified Code(s): E03.9 - Hypothyroidism , unspecified (9) Myopathy Code(s): G72.9 - MYOPATHY, UNSPECIFIED Status: Chronic Comment: On High dose steroids with OP follow Up with neurology Dr. shipley (10) Urinary retention Code(s): R33.9 - RETENTION OF URINE, UNSPECIFIED Status: Chronic - Plan og catheter, continue antibiotics, PT/OT, out of bed/ambulate, DVT proph w/ SCDs Pt approved for SNIF.Peer to peer done w Richard PINEDA.case discussed in detail -: Will consult Urology as Og was put in ER & pt unable to meet Urology in -: Cont steroids as per Neurology instructions for myopathy -: Aggressive OT/PT.pt carlos lundy for rehab -: EDUCATIONAL COORDINATOR consulted for c/o some dysphagis which is new * .Cipro empirically.final Urine Cx pending * * Add Megace. * * am labs Review of Systems - Review of Systems Constitutional: weakness, malaise. negative: fever, chills, sweats, other Cardiovascular: negative: chest pain, palpitations, orthopnea, paroxysmal nocturnal dyspnea, edema, light headedness, other Gastrointestinal: negative: Nausea, Vomiting, Abdominal Pain, Diarrhea, Constipation, Melena, Hematochezia, Other Genitourinary: negative: Dysuria, Frequency, Incontinence, Hematuria, Retention , Other Musculoskeletal: negative: Neck Pain, Shoulder Pain, Arm Pain, Back Pain, Hand Pain, Leg Pain, Foot Pain, Other - Medications/Allergies Allergies/Adverse Reactions: Allergies Allergy/AdvReac Type Severity Reaction Status Date / Time latex Allergy Mild Verified 04/22/18 22:52 Medications: Current Medications Acetaminophen (Tylenol) 650 mg PO Q4H PRN PRN Reason: Headache/Fever/Mild Pain (1-3) Last Admin: 06/04/18 17:14 Dose: 650 mg Acidophilus (Floranex) 1 tab PO DAILY [facility] Last Admin: 06/06/18 09:20 Dose: 1 tab Alprazolam (Xanax) 0.25 mg PO TID PRN PRN Reason: Anxiety Last Admin: 06/03/18 04:51 Dose: 0.25 mg Amitriptyline HCl (Elavil) 100 mg PO HS [facility] Last Admin: 06/05/18 20:31 Dose: 100 mg Aspirin (Aspirin) 325 mg PO DAILY [facility] Last Admin: 06/06/18 09:20 Dose: 325 mg Bisacodyl (Dulcolax) 10 mg [place] DAILYPRN PRN PRN Reason: Constipation Carvedilol (Coreg) 3.125 mg PO BID [facility] Last Admin: 06/06/18 09:20 Dose: 3.125 mg Ciprofloxacin (Cipro) 500 mg PO 599,1999 [facility] Last Admin: 06/06/18 04:55 Dose: 500 mg Coenzyme Q10 (Coenzyme Q10) 50 mg PO DAILY [facility] Last Admin: 06/06/18 09:32 Dose: 50 mg Dextrose/Water (Dextrose 50%) 25 gm SLOW IVP PRN PRN PRN Reason: Hypoglycemia Dicyclomine HCl (Bentyl) 20 mg PO QID PRN PRN Reason: abdominal pain Enoxaparin Sodium (Lovenox) 30 mg SC 0900 [facility] Last Admin: 06/06/18 09:19 Dose: 30 mg Famotidine (Pepcid) 20 mg PO BID [facility] Last Admin: 06/06/18 09:20 Dose: 20 mg Ferrous Gluconate (Fergon) 324 mg PO QAM [facility] Last Admin: 06/06/18 09:20 Dose: 324 mg Glucagon (Glucagon) 1 mg IM PRN PRN PRN Reason: Hypoglycemia Guaifenesin/Dextromethorphan (Robitussin Dm) 15 ml PO Q4H PRN PRN Reason: Cough Dextrose/Water (D5w) 1,000 mls @ 0 mls/hr IV .Q0M PRN PRN Reason: Hypoglycemia Insulin Human Lispro (Humalog) 0 units SC .MILD SLIDING SCALE PRN PRN Reason: Mild Correctional Scale Levothyroxine Sodium (Synthroid) 100 mcg PO 0600 [facility] Last Admin: 06/06/18 04:55 Dose: 100 mcg Megestrol Acetate (Megace) 40 mg PO BID [facility] Midodrine (Proamatine) 5 mg PO TID [facility] Last Admin: 06/06/18 14:07 Dose: 5 mg Nitroglycerin (Nitrostat) 0.4 mg PO Q5MIN PRN PRN Reason: Chest Pain Pantoprazole Sodium (Protonix) 40 mg PO DAILY [facility] Last Admin: 06/06/18 09:20 Dose: 40 mg Polyethylene Glycol (Miralax) 17 gm PO DAILY [facility] Last Admin: 06/06/18 09:20 Dose: 17 gm Prednisone (Prednisone) 20 mg PO DAILY [facility] Last Admin: 06/06/18 09:19 Dose: 20 mg Senna/Docusate Sodium (Senokot S) 2 tab PO BID [facility] Last Admin: 06/06/18 09:20 Dose: 2 tab Sertraline HCl (Zoloft) 50 mg PO DAILY [facility] Last Admin: 06/06/18 09:32 Dose: 50 mg Sodium Chloride (Flush - Normal Saline) 10 ml IVF Q12HR [facility] Last Admin: 06/06/18 09:21 Dose: Not Given Sodium Chloride (Flush - Normal Saline) 10 ml IVF PRN PRN PRN Reason: Saline Flush Tramadol HCl (Ultram) 50 mg PO Q4HR PRN PRN Reason: Pain 4-6
[2018-06-06] MEDS: Megestrol Acetate 40 MG TAB PO SCH (20:56)
[2018-06-06] MEDS: Amitriptyline HCl 100 MG TAB PO SCH (20:57)
[2018-06-06] MEDS ORDERED: Estrogens, Conjugated 30 GM TUBE VAG SCH (21:00)
--- NOTE | 2018-06-07 05:48 | CON ---
DATE OF CONSULTATION: 06/06/2018 REASON FOR CONSULTATION: Urinary retention with indwelling Padron catheter. HISTORY OF PRESENT ILLNESS: Ms. Bianca Noble is a pleasant 82-year-old white female, admitted on 06/02/2018 due to constipation, syncope, and deconditioning. The patient had a Padron catheter placed in the emergency department and has had that indwelling since admission. The patient's family today became concerned about her indwelling Padron catheter and issues related to that and I was consulted to evaluate and assess the patient due to that. PAST MEDICAL HISTORY: 1. Hypertension. 2. Moderate concentric LVH. 3. 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 4. Peptic ulcer disease. 5. Dyslipidemia. 6. Osteoarthritis. 7. Depression. 8. Hypothyroidism. 9. TIA. 10. Cataract surgery. 11. History of tracheostomy and PEG tube with reversal of both. 12. Thyroidectomy. 13. Cholecystectomy. 14. Cervical spine surgery. 15. History of sacral stage II decubitus ulcers present on admission. MEDICATIONS: Complete medication list includes the followin. Aspirin 81 mg p.o. daily. 2. CoQ10 30 mg p.o. daily. 3. Colace 100 mg twice daily. 4. Vitamin B12 1000 mcg IM every month. 5. Dicyclomine 20 mg 4 times daily. 6. Dulcolax suppository p.r.n. 7. Ferrous sulfate 324 mg p.o. daily. 8. Levothyroxine 100 mcg p.o. daily. 9. Midodrine 5 mg p.o. 3 times daily. 10. MiraLax 17 g p.o. daily. 11. Omeprazole 20 mg a day. 12. Prednisone 20 mg a day. 13. Ultram 50 mg twice daily. 14. Januvia 25 mg one-quarter of a tablet daily. 15. Elavil 100 mg p.o. at bedtime. 16. Sertraline 50 mg p.o. daily. ALLERGIES: INCLUDE LATEX. SOCIAL HISTORY: The patient does not use alcohol or drugs other than those that are prescribed and no history of cigarette smoking. She resides at the [facility]. She has a supportive family. FAMILY MEDICAL HISTORY: Positive for coronary artery disease and myocardial infarction. No history of genitourinary disorders. REVIEW OF SYSTEMS: CONSTITUTIONAL: No complaints of weight loss or weight gain. SKIN: Currently positive for sacral decubitus. No other skin lesions. HEAD, EYES, EARS, NOSE, AND THROAT: Negative. CARDIOVASCULAR: No current chest pain. Did have a previous cardiac arrest by report. PULMONARY: Negative for shortness of breath. GASTROINTESTINAL: Positive for constipation. Poor appetite and abdominal pain, which has resolved over the hospital stay. GENITOURINARY: The patient denies previous urinary retention episodes at home. She does not report urgency, frequency, or dysuria history, specifically reports that she has not required previous catheter. MUSCULOSKELETAL: Negative. NEUROLOGIC: Negative for anxiety and depression. ALLERGY: Positive for latex allergy. No current environmental allergies. PHYSICAL EXAMINATION: VITAL SIGNS: The patient is afebrile with current temperature of 97.6, pulse 65, respirations 18, O2 saturation on room air is 95%, blood pressure is 115/69. GENERAL: This is a pleasant awake, alert, GCS 15 female, in no distress. She appears to be elderly and frail. She has kyphosis consistent with osteoporosis. HEAD, EYES, EARS, NOSE, AND THROAT: Extraocular movements are intact. Sclerae anicteric. Oropharynx is clear. NECK: Supple. LUNGS: Clear to auscultation bilaterally. CARDIAC: Regular rate and rhythm without murmur, rub, or gallop. ABDOMEN: Soft and nontender. Percussion reveals increased resonance in all four quadrants consistent with the patient's old history of constipation. PELVIC: Examination was performed, finds indwelling Padron catheter, which was replaced today in my direction after a voiding trial, during which the patient's bladder was backfilled with 240 mL and the patient allowed to void on bedside commode. The patient was only able to produce about 10 mL of urine with its fill volume. She was not able to void to completion. A Padron catheter was replaced in my direction with return of 300 mL of urine indicating the patient has current and ongoing urinary retention. EXTREMITIES: Appear within normal limits. LABORATORY STUDIES: The patient's most recent white count was 9400 on 06/03/2018, hemoglobin 11.6, hematocrit of 34.8, neutrophil count was last at 80.3 on 06/03/2018. Serum chemistries that have recently been produced include only blood glucose checks, which have been within normal range. A urinalysis was obtained on 06/02/2018, which showed the presence of blood, nitrite as well as greater than 50 red cells per high-power field and greater than 50 white cells per high-power field, 4+ bacteria seen on the urinalysis. Microbiology laboratory returned with finding of a positive urine culture for Hafnia alvei, which are ordinarily agent associated with respiratory infection in debilitated individuals and the elderly, and sometimes as a urinary tract infection agent. It is sensitive to multiple antibiotics that are available orally including fluoroquinolones and cephalosporins. It is also sensitive to Bactrim as well. ASSESSMENT: 1. Urinary retention. This is confirmed today by voiding trial. The patient failed the voiding trial and the Padron catheter was replaced. 2. Pelvic examination today demonstrates the patient to have low estrogen status and I recommend that she start on Premarin cream to be applied in the periurethral area nightly. She will start on that today. 3. Followup. The patient will be followed up in my clinic at [address] [place] [address], [place], [place] for further evaluation of her urethral dysfunction, which is a presumed cause of her urinary outlet obstruction. 4. Postmenopausal atrophic vaginitis. The patient will likely respond to periurethral Premarin or estrogen cream. Job ID: [id number]
[2018-06-07] MEDS: Levothyroxine Sodium 100 MCG TAB PO SCH (06:02)
[2018-06-07] MEDS: Ciprofloxacin 500 MG TAB PO SCH (06:02)
[2018-06-07 11:19] VITALS: BP 118/59; TEMP 98.3
[2018-06-07] MEDS: Aspirin 325 MG TAB PO SCH (11:20)
[2018-06-07] MEDS: Carvedilol 3.125 MG TAB PO SCH (11:20)
[2018-06-07] MEDS: Midodrine HCl 5 MG TAB PO SCH (11:21)
[2018-06-07] MEDS: predniSONE 20 MG TAB PO SCH (11:21)
[2018-06-07] MEDS: Polyethylene Glycol 3350 17 GM Packet PO SCH (11:21)
[2018-06-07] MEDS: Famotidine 20 MG TAB PO SCH (11:21)
[2018-06-07] MEDS: Megestrol Acetate 40 MG TAB PO SCH (11:21)
[2018-06-07] MEDS: Ferrous Gluconate 324 MG TAB PO SCH (11:21)
[2018-06-07] MEDS: Lactinex Tablet PO SCH (11:21)
[2018-06-07] MEDS: Enoxaparin Sodium 30 MG/0.3 ML SYRINGE SC SCH (11:21)
[2018-06-07] MEDS: Senokot S 8.6-50 MG TAB PO SCH (11:22)
[2018-06-07] MEDS: Ubidecarenone 50 MG CAP PO SCH (11:22)
--- NOTE | 2018-06-09 21:13 | DIS ---
DATE OF ADMISSION: 06/02/2018 DATE OF DISCHARGE: 06/07/2018 CONDITION AT THE TIME OF DISCHARGE: Stable. DISCHARGED DISPOSITION: Skilled Rehab at [facility]. PRIMARY CARE PHYSICIAN: Dr. Meir Armstrong. DISCHARGE DIAGNOSES: 1. Syncope. 2. Demand ischemia. 3. Urinary retention, status post Padron placement. 4. Urinary tract infection. 5. Failure to thrive. 6. Dyslipidemia. 7. Moderate protein-calorie malnutrition. 8. Generalized weakness. 9. Hypothyroidism. 10. Unknown kind of myopathy, on high-dose steroids per neurologist, . IN-HOUSE CONSULTATION: 1. Urology, Dr. Diana. 2. Cardiology, Dr. Mike. DISCHARGE MEDICATIONS: As follows; 1. Midodrine 5 mg p.o. t.i.d. 2. Bentyl q.i.d. p.r.n. 3. Xanax t.i.d. p.r.n. 4. Elavil 100 mg at bedtime. 5. B12 IM as directed previously. 6. Synthroid 100 mcg daily. 7. Zoloft 50 mg daily. 8. Zofran p.r.n. 9. Omeprazole 20 mg daily. 10. Januvia 25 mg daily. 11. Prednisone 20 mg p.o. b.i.d. 12. CoQ10 daily. 13. Tramadol p.r.n. 14. Megace 40 mg p.o. b.i.d. 15. Premarin cream vaginally at bedtime. 16. Ciprofloxacin 500 p.o. b.i.d. for 5 more days. 17. Carvedilol 3.125 mg p.o. b.i.d. 18. Aspirin 325 mg daily. PROCEDURES DONE IN THE HOSPITAL: None. HISTORY OF PRESENTING ILLNESS: Ms. Noble is an 82-year-old female with severe malnutrition and multiple chronic comorbidities, especially with failure to thrive, who presented to the emergency room from [facility] for syncopal episode. Upon presentation, she was hemodynamically stable with a blood pressure of 132/60, pulse of 74, saturating 95% on room air, and afebrile. Her EKG showed normal sinus rhythm. Her urinalysis was positive for nitrite, leukocyte esterase, and bacteria. Her CK-MB was 7.9 and troponin 0.61. The patient was admitted initially to Telemetry for possible [id number] SC, syncope, significant deconditioning, and weight loss. Please see admission history and physical for further details. The patient was last admitted to a facility in April 2018; at which time, she had a nuclear medicine stress test and transthoracic echocardiogram and Cardiology evaluation. At that time, her stress test was unremarkable. Cardiology was consulted by the admitting physician, Dr. Peña, again. Please see his H and P for further details. HOSPITAL COURSE: Serial cardiac enzymes were trended and her troponin went from 0.[address] Mike saw the patient and recommended medical management. Dr. Mike recommended aspirin and carvedilol, which were done, and the patient was monitored and eventually transferred to medical floor. She also has history of some myopathy for which she is on prednisone by . Her family reported that they have seen in the outpatient setting and they were told to continue the prednisone until next appointment 2 months later. Ms. Noble had significant weakness in the hospital. Noticeably, she was able to ambulate during her last hospitalization with the help of the OT and PT. With progressive worsening weakness, they saw the patient again and recommended residential unit placement. This was arranged at [facility]. The patient did have poor oral intake and expressed some difficulty with swallowing and speech therapist saw the patient as well. They recommended pureed food and nectar thick liquid, which was done. In general, Ms. Noble's main issue is significant deconditioning, muscle weakness of unknown etiology, and poor oral intake leading to malnutrition and worsening weakness. She would greatly benefit from rehab, but I have encouraged them to follow up with as soon as possible for further recommendations. She will be discharged to [facility] with OT, PT, and Speech Therapy. It was noticed that the patient has a Padron catheter. She came in with this Padron catheter. Upon record review, it was found out that this was placed during one of the ER visits on 05/30/2018. She was given referral to Urology as an outpatient, but has not seen them yet, but instead got admitted. Because of this, Urology was consulted in-house. Dr. Diana saw the patient and a voiding trial was done, which the patient failed. Padron catheter was reinserted and Dr. Diana recommended that she will be seen in the outpatient setting. He did recommend starting her on Premarin cream for atrophic vaginitis. At the time of discharge, the patient is still weak, but there are no active medical issues ongoing that would necessitate her staying in the hospital. She is hemodynamically stable and will be discharged to [facility] for rehab. She was seen and examined prior to discharge. PHYSICAL EXAMINATION: VITAL SIGNS: This morning; temperature 98.3, pulse is 70, respirations 16, saturating 98% on room air, and blood pressure 118/59. GENERAL: She is awake, alert, and oriented x3. is at bedside. CHEST: Clear to auscultation bilaterally. HEART: Rate and rhythm are regular. She is eager to get out of the hospital. LABORATORY DATA: Her urine culture has grown Hafnia Alvei, which is rather pansensitive except for ampicillin sulbactam, it is sensitive to the ciprofloxacin she has received in the hospital. DISCHARGE PLAN: Discharge plan was discussed with the patient and her family. They verbalized understanding. They will follow up with Dr. Mike and Dr. Diana in the outpatient setting as well as with the primary care physician. TOTAL TIME SPENT: 38 minutes. Job ID: [id number]
== END 2018-06-07 14:09 | DRG 281 ==
LOC: ERS 08:25 → ERHOLD 14:35 → 2NO 20:59 → T4-A 06-04 17:34
PROVIDERS: ADMIT Internal Medicine; ATTEND Internal Medicine
DX: R55 Syncope and collapse (principal); I21.4 Non-ST elevation (NSTEMI) myocardial infarction; E44.0 Moderate protein-calorie malnutrition; Z68.1 Body mass index [BMI] 19.9 or less, adult; N39.0 Urinary tract infection, site not specified; I49.8 Other specified cardiac arrhythmias; E78.5 Hyperlipidemia, unspecified; Z86.74 Personal history of sudden cardiac arrest; Z86.73 Personal history of transient ischemic attack (TIA), and cerebral infarction without residual deficits; F32.9 Major depressive disorder, single episode, unspecified; M19.90 Unspecified osteoarthritis, unspecified site; R62.7 Adult failure to thrive; R33.9 Retention of urine, unspecified; G72.9 Myopathy, unspecified; N95.2 Postmenopausal atrophic vaginitis; I10 Essential (primary) hypertension; K27.9 Peptic ulcer, site unspecified, unspecified as acute or chronic, without hemorrhage or perforation; K59.00 Constipation, unspecified; E89.0 Postprocedural hypothyroidism; Z91.040 Latex allergy status; Z74.01 Bed confinement status; E16.2 Hypoglycemia, unspecified
CPT/HCPCS: 36415; 36416; 51702; 74177; 80048; 80053; 80061; 81003; 81015; 82553; 83690; 84484; 85025; 87040; 87045; 87046; 87077; 87086; 87186; 87449; 87899; 93005; 94760; 96361; 96374; 99214; G0463; G8978-GP-CM; G8979-GP-CK; G8987-GO-CM; G8988-GO-CM; G8989-GO-CM; G8996-GN-CJ; G8997-GN-CJ; J1650; J1956; J2405; J2765; J7506; S0179

== ENCOUNTER 2018-06-19 07:31 | Inpatient (IN) | payer MEDICARE ==
[2018-06-19 08:42] LABS: ALT (SGPT) 43 U/L (8-55); AST (SGOT) 30 U/L (5-34); Albumin 2.3 g/dL (3.4-4.8); Alkaline Phosphatase 81 U/L (40-150); Anion Gap 10 mmol/L (10-20); BUN (Urea Nitrogen) 22 mg/dL (9.8-20.1); Bilirubin, Total 0.4 mg/dL (0.2-1.2); Calc. Creatinine Clearance 0 mL/min (70-130); Calcium 9.2 mg/dL (7.8-10.44); Carbon Dioxide 30 mmol/L (23-31); Chloride 101 mmol/L (98-107); Estimated GFR-MDRD Greater than 90; Globulin 2.5 g/dL (2.4-3.5); Glucose 79 mg/dL (83-110); Potassium 3.4 mmol/L (3.5-5.1); Protein, Total 4.8 g/dL (6.0-8.3); Sodium 138 mmol/L (136-145)
[2018-06-19 08:51] LABS: Hemoglobin 9.8 g/dL (12.0-16.0); Mean Corpuscular HGB CONC 32.6 g/dL (32.0-36.0); Mean Corpuscular Hemoglobin 30.8 pg (27.0-31.0); Mean Corpuscular Volume 94.2 fL (78.0-98.0); Mean Platelet Volume 7.4 fL (7.4-10.4); Platelet Count 219 thou/uL (130-400); RBC Distribution Width 13.9 % (11.5-14.5); Red Blood Cell (RBC) Count 3.18 mill/uL (4.20-5.40); White Blood Cell (WBC) Count 10.5 thou/uL (4.8-10.8)
[2018-06-19 08:58] LABS: Critical Call Chem Troponin I RESULT DECREASING
[2018-06-19] MEDS ORDERED: Piperacillin/Tazobactam 3.375 GM VIAL ONE (09:03)
--- NOTE | 2018-06-19 09:11 | RAD ---
CHEST 1 VIEW: Date: 06/19/18 HISTORY: Shortness of breath. COMPARISON: Chest radiograph dated 04/22/18. FINDINGS: Layering effusions. There are bibasilar air space opacities. No pneumothorax. No acute osseous abnormality. Calcifications of aorta. IMPRESSION: 1. New bilateral layering small effusions. 2. New bibasilar air space opacity concerning for multifocal infection or aspiration. POS: [facility]
[2018-06-19 09:17] LABS: CKMB 1.8 ng/mL (0-6.6)
[2018-06-19 09:18] LABS: Bilirubin Negative (Negative); Blood, Urine Moderate (Negative); Clarity CLOUDY (Clear); Glucose, Urine (Dipstick) Negative (Negative); Leukocyte Moderate (Negative); Nitrite Negative (Negative); Protein, Urine (Dipstick) 30 mg/dL (Neg-Trace); Specific Gravity, Urine 1.021 (1.002-1.036)
[2018-06-19 09:27] LABS: Band 56 % (5-11); Lymphocytes 8 % (21-51); MDiff Complete? YES; Neutrophil 36 % (42-75); PLT Morphology Comment Appears Adequate; Polychromasia SLIGHT = 2-3 cells (100X) (0-2/hpf); Reflex for Review?? YES; Toxic Granulation SLIGHT
[2018-06-19 09:33] LABS: Bacteria/HPF 4+ HPF (None Seen); Squamous Epithelial 0-3 HPF (0-3)
[2018-06-19 09:35] LABS: Yeast-AUWi Flag 188.2 (0-25.0)
[2018-06-19 09:36] LABS: Pathc Cast-AUWi Flag 7.55 (0-2.49)
[2018-06-19 09:48] LABS: Yeast-All Forms 3+ HPF (None Seen)
[2018-06-19 10:32] LABS: CRP (Inflammatory) 26.82 mg/dL (= or < 0.5); Magnesium 1.3 mg/dL (1.6-2.6); Phosphorus 2.1 mg/dL (2.3-4.7)
[2018-06-19] MEDS ORDERED: Levofloxacin 500 mg/D5W 100 ml Premix Bag ONE (10:59)
--- NOTE | 2018-06-19 11:02 | CT ---
CT PULMONARY ANGIOGRAM WITH IV CONTRAST AND 3D POSTPROCESSING: Date: 06/19/18 HISTORY: Shortness of breath. FINDINGS: There is good opacification of the pulmonary arterial vasculature with a small filling defect in the left pulmonary artery extending into the origin of a left upper lobe branch. There are vascular calci fications without thoracic aortic aneurysm or dissection. Bilateral lower lobe consolidative changes are present. No pleural or pericardial effusions are seen. A hiatal hernia is noted. There are degene rative changes in the spine. IMPRESSION: Small left pulmonary embolus. Discussed over the telephone with ER physician, Dr. Miguelangel Ambrocio, at 1030 hours. CODE CR. POS: OFF
[2018-06-19] MEDS ORDERED: Enoxaparin Sodium 40 MG/0.4 ML SYRINGE ONE (11:12)
[2018-06-19 11:44] LABS: Critical Call Chem Troponin I RESULT DECREASING; Troponin I 0.443 ng/mL (< 0.028)
[2018-06-19] MEDS ORDERED: Magnesium Sulfate 4 GM in Sodium Chloride 0.9% 250 ML 250 ML IVPB SCH (12:00)
[2018-06-19] MEDS ORDERED: Dextrose 50% Abboject 50 ML SYRINGE SLOW IVP PRN (12:29)
[2018-06-19] MEDS ORDERED: Dextrose 5% in Water 1,000 ML IV PRN (12:29)
[2018-06-19] MEDS ORDERED: Insulin Regular 300 UNITS/3 ML VIAL SC PRN ×2 (12:29)
[2018-06-19] MEDS ORDERED: Acetaminophen 325 MG TAB PO PRN (12:29)
[2018-06-19] MEDS ORDERED: Calcium Carbonate 500 MG ChewTAB PO PRN (12:29)
[2018-06-19] MEDS ORDERED: Ondansetron ODT 4 MG TAB PO PRN (12:29)
[2018-06-19] MEDS ORDERED: Bisacodyl 5 MG TAB PO PRN (12:29)
[2018-06-19] MEDS ORDERED: Nitroglycerin 0.4 MG TAB (25 Tab Bottle) PO PRN (12:29)
[2018-06-19] MEDS ORDERED: Ondansetron PF 4 MG/2 ML Vial IVP PRN (12:29)
[2018-06-19] MEDS ORDERED: VANC / ABX IVPB PRN (12:43)
[2018-06-19] MEDS ORDERED: D5 0.9% NS w/ 20 mEq KCl 1,000 ML IV SCH (12:45)
--- NOTE | 2018-06-19 13:44 | HP ---
PRIMARY CARE PHYSICIAN: Meir Armstrong MD The patient is under the care of Dr. Chisholm at [facility]. CHIEF COMPLAINT: Shortness of breath with low oxygen saturation at [facility] along with blood pressure in systolic 90s. HISTORY OF PRESENT ILLNESS: The patient is an 82-year-old female, who was discharged from this facility approximately 2 weeks ago. She was found to have urinary retention and Padron catheter was placed. Her troponins were elevated. She had syncope and was evaluated by Cardiology. The patient was found to have increased shortness of breath along with O2 saturation of 83% on room air at the [facility]. Her blood pressure was in systolic 90s. She also appeared somewhat somnolent with increased fatigue. No confusion reported. No chest pain, palpitations, lightheadedness, or dizziness reported. In the emergency room, her initial vital signs showed temperature 98.3, respirations 21, pulse rate of 85 with blood pressure 113/54 with O2 saturation 94% on 2 L nasal cannula. Please note that the patient had received IV fluids by the EMS. Her WBC count was 10.5 with 56% bandemia. Her troponin was 0.464. Her troponin last admission was 0.6. A CT angiogram of the chest showed a small left pulmonary embolus along with bibasilar infiltrate. PAST MEDICAL HISTORY: 1. Hypertension. 2. Hypertensive heart disease. 3. Chronic diastolic heart failure. 4. Peptic ulcer disease. 5. Dyslipidemia. 6. Depression. 7. Hypothyroidism. 8. History of TIA. 9. History of tracheostomy and PEG tube placement in the past with subsequent removal. 10. Chronic stage II sacral decubitus ulcer. 11. Depression. 12. Diabetes mellitus, type 2. 13. Chronic urinary retention, status post Padron catheter. 14. Moderate protein-calorie malnutrition. 15. Unknown kind of myopathy, on chronic steroids. PAST SURGICAL HISTORY: 1. Cervical spine surgery. 2. Cholecystectomy. 3. Thyroidectomy. 4. Cataract surgery. ALLERGIES: THE PATIENT IS ALLERGIC TO LATEX. CURRENT MEDICATIONS: At [facility]; 1. Xanax 0.4 mg as needed. 2. Amitriptyline 100 mg at bedtime. 3. Aspirin 325 mg daily. 4. Carvedilol 3.125 mg twice a day. 5. Coenzyme Q10 30 mg daily. 6. Januvia 25 mg daily. 7. Levothyroxine 100 mcg daily. 8. Megace 40 mg twice a day. 9. Midodrine 5 mg 3 times a day. 10. Omeprazole 40 mg daily. 11. Prednisone 20 mg twice a day. 12. Premarin 1 g at bedtime. 13. Zoloft 50 mg daily. 14. Multivitamin one tablet daily. 15. Tramadol as needed. 16. Vitamin C 500 mg twice a day. 17. Vitamin B12 intramuscularly as scheduled. 18. Zinc sulfate 220 mg daily. SOCIAL HISTORY: The patient is a do not resuscitate. She makes her own decision with the help of her . No smoking, alcohol, or drug use. DNR was confirmed with the patient. FAMILY HISTORY: Heart disease runs in her family. REVIEW OF SYSTEMS: All other review of systems was reviewed and were found negative. PHYSICAL EXAMINATION: VITAL SIGNS: As discussed above. GENERAL: An 82-year-old female, ill-appearing, in mild respiratory distress, able to complete short phrases. HEENT: Head, atraumatic and normocephalic. Sclerae are anicteric. Dry mucous membranes. No oral lesion. NECK: Supple. No JVD appreciated. No carotid bruit. LUNGS: Showed bibasilar rales with scattered rhonchi. There was minimal accessory muscle use. Lungs were symmetrical. HEART: S1 and S2 present. Regular rate and rhythm. 2/6 systolic murmur over the mitral area. ABDOMEN: Soft, nontender. Bowel sounds present. EXTREMITIES: No edema or calf tenderness. GENITOURINARY: Padron catheter noted with clear yellow urine. SKIN: Warm and dry. LYMPH NODES: No palpable lymph node in the neck. PERIPHERAL VASCULAR: Radial pulse is palpable bilaterally. MUSCULOSKELETAL: No joint swelling or tenderness. LABORATORY FINDINGS: CBC showed WBC 10.5 with hemoglobin 9.8 with 56% bandemia. Chemistry showed sodium 138, potassium 3.4, BUN 22, and creatinine 0.48. CRP 26.8. Troponin 0.464. Phosphorus 2.1, magnesium 1.3. Urinalysis showed 4+ bacteria with 11 to 20 wbc's. Influenza testing was negative. IMAGING STUDIES: Chest x-ray and CT angiogram of the chest by my review as discussed above. EKG by my review showed sinus rhythm with left anterior fascicular block. IMPRESSION: 1. Sepsis with acute organ dysfunction secondary to pneumonia, suspected aspiration. 2. Left pulmonary embolism. 3. Catheter-associated urinary tract infection. 4. Chronic urinary retention with indwelling Padron catheter. 5. Multiple electrolyte abnormalities including hypokalemia, hypophosphatemia, and hypomagnesemia. 6. Chronically-elevated troponins. 7. Severe protein-calorie malnutrition. 8. Elevated inflammatory markers. 9. Chronic anemia. 10. Unknown myopathy, on chronic steroids. 11. Hypothyroidism. 12. History of transient ischemic attack. 13. Peptic ulcer disease. 14. Dyslipidemia. 15. History of cardiac arrest in 2017. 16. History of percutaneous endoscopic gastrostomy tube and tracheostomy with subsequent removal. 17. Atrophic vaginitis, on estrogen. 18. Physical deconditioning. 19. Decubitus ulcer over the sacrum, stage II, present on admission. 20. Degenerative joint disease. 21. Chronic diastolic heart failure. 22. Hypothyroidism. 23. Diabetes mellitus, type 2. PLAN: The patient will be monitored on the telemetry unit. Empiric antibiotics will be continued. We will start her on anticoagulation as well. We will continue current dose of prednisone. We will consult Infectious Disease as well as Pulmonary. DNR was confirmed with the patient. We will continue selected home medications. We will hold carvedilol for now due to blood pressure on the lower range. Insulin sliding scale. The patient will require 3 to 4 days for stabilization. Palliative Care Team will be consulted as well. Job ID: [id number]
[2018-06-19 14:24] LABS: Critical Call Chem Troponin I RESULT DECREASING; Troponin I 0.434 ng/mL (< 0.028)
[2018-06-19] MEDS ORDERED: predniSONE 20 MG TAB PO SCH (14:30)
[2018-06-19] MEDS: K-Phos Neutral 250 MG TAB PO SCH ×2 (15:15→17:50)
[2018-06-19] MEDS: Midodrine HCl 5 MG TAB PO SCH ×2 (15:16→21:20)
--- NOTE | 2018-06-19 16:51 | CON ---
DATE OF CONSULTATION: 06/19/2018 SERVICE: Pulmonary Medicine. REASON FOR CONSULTATION: Respiratory failure. HISTORY OF PRESENT ILLNESS: The patient is an 82-year-old white female with past medical history significant for PEA arrest. She developed hypoxic respiratory failure 1 time remotely. She was getting an EGD. She presented in her usual state of health and coded during the event. Ultimately, she got chest compressions briefly. She ended up getting intubated. She did not extubate comfortably and ultimately required PEG tube and tracheostomy. Both of these things have been removed at this point. Recently, she has been worked up for myopathy. She was put on steroids twice daily. She is being progressively increasingly weak as time went on. She denies any current fevers, chills, nausea, vomiting, or diarrhea. That being said, she presented to the hospital with increasing shortness of breath. The CT PE protocol demonstrated both PE, densely consolidated bibasilar regions. She denies having any cough or sputum production. She has no nausea, vomiting, or diarrhea. She does not endorse any reflux type symptoms. She is not having any hot, red, or swollen joints; rashes; or arthralgias. PAST MEDICAL HISTORY: 1. History of PEA arrest, requiring tracheostomy and PEG tube placement, which have subsequently been decannulated. 2. Hypertension. 3. Chronic diastolic heart failure. 4. Dyslipidemia. 5. Hypertension. 6. Major depressive disorder. 7. Hypothyroidism. 8. Stage 2 sacral decubitus ulcer, present on admission. 9. Major depressive disorder. 10. Type 2 diabetes mellitus. 11. Urinary retention. 12. Protein calorie malnutrition, moderate. 13. Myopathy. PAST SURGICAL HISTORY: 1. Cervical spine surgery. 2. Cholecystectomy. 3. Thyroidectomy. 4. Cataract surgery. 5. PEG tube and tracheostomy, status post subsequent decannulation. ALLERGIES: NO KNOWN DRUG ALLERGIES. MEDICATIONS: List of the patient's inpatient medications was reviewed. No specific updates were made at this time. FAMILY HISTORY: Noncontributory. SOCIAL HISTORY: The patient is currently a resident of a residential facility. She is a DNI/DNR. She denies using any alcohol, tobacco, or illicit drug products. She has no exposure to chemicals, dust, asbestos, or tuberculosis. REVIEW OF SYSTEMS: General, head, ears, eyes, nose, throat, cardiovascular, respiratory, GI, , musculoskeletal, neurologic, and skin are negative except as mentioned in the HPI. PHYSICAL EXAMINATION: VITAL SIGNS: Afebrile, pulse 72, respirations 15, and saturation 98% on 2 L nasal cannula. GENERAL: The patient is awake and alert, in no apparent distress. LUNGS: Decent air entry. Dependent crackles are present. There is no prolonged expiratory phase or wheezing appreciated. HEART: Normal rate and regular. ABDOMEN: Soft, nontender, and nondistended. Bowel sounds are positive. MUSCULOSKELETAL: No cyanosis or clubbing. There is diffuse 1 to 2+ pitting throughout. : Padron catheter in place. NEUROLOGIC: Grossly nonfocal. LABORATORY DATA: WBC 10.5, hemoglobin 9.8, and platelets 219,000. Neutrophils are 36% on top of 56% bands. Troponin is abnormal. BNP 819, which is in historic high, CRP 26.82. Magnesium 1.3 and phosphorus 2.1. Potassium 3.4. Otherwise, basic metabolic profile and liver function studies are unremarkable. Lactate is negative. Cortisol level is more than adequate at 52. Urinalysis is unremarkable except for a little pyuria. Influenza A and B are unremarkable. IMAGING: CTA of the chest demonstrates a small pulmonary embolism. She also had dense bibasilar infiltrates, which are in the dependent regions of her lungs. Three weeks ago, she had a CT of the abdomen and pelvis that did not demonstrate any infiltrates or abnormalities in those regions. ASSESSMENT: 1. Healthcare-associated pneumonia. 2. Acute hypoxic respiratory failure. 3. Severe sepsis. 4. Ung-GS-aservvedf myocardial infarction, likely from demand. 5. History of pulseless electrical activity, requiring percutaneous endoscopic gastrostomy and tracheostomy, which were transient. 6. Myopathy with progressive deconditioning/weakness, requiring daily steroids. DISCUSSION AND PLAN: We will need to complete a 7-day course of IV antibiotics. Agree with blood cultures, urinalysis, and urine culture. That being said, our source is most likely the infiltrates. If we find an organism, we can tailor antibiotics, but if we cannot after 24 hours, I would put in a PICC line and send her back to her residential facility to complete a 7-day course of our current antibiotics that have been selected. For the PEA, she will require 6- to 9-month course of blood thinners. I talked about direct oral anticoagulants, and Coumadin. Ultimately, after discussion of the risks, benefits, and alternatives, the patient has elected to proceed with a direct oral anticoagulant. Because of her age and size, we will modify our Eliquis dose. I do not believe this PE is causing her significant respiratory failure. Most likely the infiltrates contributing to that. Additionally, this PEA is small enough that I do not believe it is putting stress on her heart in a meaningful way causing the [id number] OK. I believe that is from the severe sepsis syndrome. Cardiology consultation; however, is pending. Job ID: [id number]
[2018-06-19] MEDS: D5 0.9% NS w/ 20 mEq KCl 1,000 ML IV SCH (17:32)
[2018-06-19] MEDS: Piperacillin/Tazobactam 3.375 GM in Sodium Chloride 0.9% 100 ML IVPB SCH ×2 (17:39→21:12)
[2018-06-19] MEDS: predniSONE 20 MG TAB PO SCH (17:51)
[2018-06-19 18:30] LABS: Legionella Urinary Ag Negative (Negative); Strep pneumo Urine Ag NEGATIVE (NEGATIVE)
[2018-06-19] MEDS: Carvedilol 3.125 MG TAB PO SCH (21:17)
[2018-06-19] MEDS: Estrogens, Conjugated 30 GM TUBE VAG SCH (21:19)
[2018-06-19] MEDS: Apixaban 2.5 MG TAB PO SCH (21:19)
[2018-06-19] MEDS: Senokot S 8.6-50 MG TAB PO SCH (21:20)
--- NOTE | 2018-06-20 00:06 | CON ---
DATE OF CONSULTATION: REASON FOR CONSULTATION: Possible new infection. 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 She had echocardiogram which showed an EF of 50% to 55% , and her cardiac enzymes were somewhat elevated, there is an incomplete right bundle branch block. She also had a nuclear medicine stress test and that was normal. She developed vasovagal reaction while sitting in the toilet and she quickly recovered after fluid resuscitation. She was discharged on prednisone 20 mg twice daily, omeprazole, coenzyme Q, ferrous gluconate, Januvia, Zoloft, Synthroid. In June, the patient presented with syncopal event, urinary retention, possible UTI, and generalized weakness. She had presented from the emergency room from [facility] for a syncopal event. EKG was normal. She had poor oral intake and pureed food was recommended by the speech therapist. Urology evaluated the patient and the patient failed voiding trial and therefore a Padron catheter was reinserted. Now, she presents with dyspnea with hypoxemia at the [place], and BP with systolic of 90. She was somnolent as well. Initial findings included temperature of 98.3, respiratory rate 21, pulse of 85, BP 113/54. White cell count is 10.5 with predominance of bands. CT angiogram of the chest showed small left pulmonary embolus. PAST MEDICAL HISTORY: Hypertension, diastolic dysfunction, dyslipidemia, hypothyroidism, prior TIA, history of pneumonia, which required tracheostomy placement and gastrostomy tube placement which have been removed, stage II sacral decubitus, type 2 diabetes, urinary retention with failure of voiding trial recently, chronic indwelling Padron catheter, some form of myopathy, which does not appear to have been clarified what nature of it, I do not see any muscle biopsy in the record or other assays. PAST SURGICAL HISTORY: Cervical spine fusion, cholecystectomy, thyroidectomy, cataract surgery. ALLERGIES: LATEX. CURRENT MEDICATION LIST: Includes; 1. Tylenol. 2. Eliquis. 3. Aspirin. 4. Dulcolax. 5. Tums. 6. Coreg. 7. Vitamin B12. 8. Estrogen. 9. Folic acid. 10. Influenza. 11. Insulin. 12. Magnesium. 13. Midodrine. 14. Nitroglycerin. 15. Ondansetron. 16. Zosyn. 17. Vancomycin. SOCIAL HISTORY: She has a DNR advanced directive, appears to have been a former smoker. She had been living with family. FAMILY HISTORY: Noncontributory. PHYSICAL EXAMINATION: VITAL SIGNS: With a T-max of 97.5, blood pressure 107/58, pulse 76, respirations 14, O2 saturation 97%. SKIN: With a round shaped necrotic presacral decubitus, unstageable at this point in time, but appears to be at least a stage III, surrounding abrasion of the skin and maceration with some blood. She has areas of bruising in the extremities and shallow areas of macerations at the heel region, left side. No lymphadenopathy. She appears chronically ill. HEENT: Ocular movements are conjugate. Oral cavity is moist. Few teeth in place. NECK: Supple. LUNGS: Symmetric air entry. HEART: S1 and S2. Regular rate. ABDOMEN: Soft, not distended or tender. No ascites. No bladder distention. She has a Padron catheter in place. NEUROLOGIC: The patient has no jugular vein distention. She has marked atrophy of the musculature of the lower extremities. She is awake. She knows her name and knew she was in the hospital. Had a hard time in giving me an account of her current illness. LABORATORY DATA: White cell count is 10.5, hemoglobin 9.8, MCV 94, platelets 219, 36% neutrophils, and 56% bands. Previous white cell count a few days ago was 9.4. Chemistry with a sodium 138, potassium 3.4, creatinine 0.48 with a normal liver profile. Magnesium 1.3 and albumin 2.3. CRP 26 and globulin 2.5. Urinalysis with 11 to 20 wbcs. Previous CK was 185 on June 28, 2014. All the CKs since then have been normal. She has serum protein electrophoresis, which showed no evidence of M spike. There is an immunology panel with negative ANCA panel and negative SILVA. IMAGING STUDIES: We have chest x-rays, the one from April 2018 with no acute intrathoracic disease, the one from June 19, 2018, with layering small effusions and bibasilar airspace opacity. She had a CT of chest with angiogram, which showed good opacification of pulmonary arterial vasculature with a small filling defect in the left pulmonary artery extending into the origin of the left upper lobe branch. There are vascular calcifications, bilateral lower lobe consolidative changes present. ASSESSMENT: 1. Type 2 diabetes. 2. Weakness with a possible myopathy. 3. Prednisone intake for this indication above. 4. Recurrent admissions with weakness, neurogenic bladder, requiring catheterization. 5. Worsening dyspnea with abnormal CT scan, including the evidence of pulmonary embolism and the infiltrates in the lower lobes. 6. Marketed bandemia. DISCUSSION: The neurological presentation that seems to be the primary disorder in her presentation is not yet clear. She does have evidence of myelopathy in the previously completed MRI of the C-spine and she does not present with elevated creatine kinase serum enzyme which would argue against a primary myopathy or at least argue against an inflammatory myopathy. The exposure to corticosteroids does not seem to have improved her functional status and would question the need to continue giving her corticosteroids for that indication. The corticosteroids can have significant adverse effects in immune function and can cause myopathy in themselves as well. The mobility impairment probably has led to the development of pulmonary embolism identified in the left side. That small area of involvement would not explain the lower lung infiltrates on the basis of infarctions, and so we probably have two separate events here, the thromboembolism and the inflammatory process in the lower lungs is secondary to an infectious complication, which could be related to aspiration or just hematogenous pneumonia if she is shown to be bacteremic. We will submit usual assays for lower respiratory tract infections, the antimicrobial therapy may need to add Legionella, mycoplasma, etc coverage as well. Job ID: [id number] [facility]
[2018-06-20] MEDS: Piperacillin/Tazobactam 3.375 GM in Sodium Chloride 0.9% 100 ML IVPB SCH ×4 (03:30→22:20)
[2018-06-20] MEDS: Levothyroxine Sodium 100 MCG TAB PO SCH (05:27)
[2018-06-20 06:17] LABS: #Lymphocytes 0.7 thou/uL (1.20-3.40); #Monocytes 0.4 thou/uL (0.11-0.59); #Neutrophils 7.6 thou/uL (1.40-6.50); %Basophils 0.1 % (0.0-1.0); %Lymphocytes 7.6 % (21.0-51.0); %Monocytes 4.1 % (0.0-10.0); %Neutrophils 88.2 % (42.0-75.0); Hemoglobin 9.2 g/dL (12.0-16.0); Mean Corpuscular HGB CONC 33.4 g/dL (32.0-36.0); Mean Corpuscular Hemoglobin 31.5 pg (27.0-31.0); Mean Corpuscular Volume 94.3 fL (78.0-98.0); Mean Platelet Volume 7.5 fL (7.4-10.4); Platelet Count 197 thou/uL (130-400); RBC Distribution Width 13.8 % (11.5-14.5); Red Blood Cell (RBC) Count 2.91 mill/uL (4.20-5.40); White Blood Cell (WBC) Count 8.7 thou/uL (4.8-10.8)
[2018-06-20 06:36] LABS: ALT (SGPT) 35 U/L (8-55); AST (SGOT) 25 U/L (5-34); Albumin 2.1 g/dL (3.4-4.8); Alkaline Phosphatase 75 U/L (40-150); Anion Gap 9 mmol/L (10-20); BUN (Urea Nitrogen) 18 mg/dL (9.8-20.1); Bilirubin, Total 0.4 mg/dL (0.2-1.2); Calc. Creatinine Clearance 58 mL/min (70-130); Calcium 8.7 mg/dL (7.8-10.44); Carbon Dioxide 29 mmol/L (23-31); Chloride 105 mmol/L (98-107); Estimated GFR-MDRD Greater than 90; Globulin 2.4 g/dL (2.4-3.5); Glucose 126 mg/dL (83-110); Magnesium 2.2 mg/dL (1.6-2.6); Phosphorus 2.4 mg/dL (2.3-4.7); Protein, Total 4.5 g/dL (6.0-8.3); Sodium 140 mmol/L (136-145)
[2018-06-20] MEDS ORDERED: Potassium Chloride 40 MEQ in Premix Bag 1 BAG IVPB SCH (07:45)
[2018-06-20] MEDS ORDERED: Potassium Chloride 40 MEQ in Sodium Chloride 0.9% 250 ML 250 ML IVPB SCH (08:15)
[2018-06-20] MEDS ORDERED: Enoxaparin Sodium 40 MG/0.4 ML SYRINGE SC SCH (09:00)
[2018-06-20] MEDS ORDERED: Aspirin 325 MG TAB PO SCH (09:00)
[2018-06-20] MEDS: Vancomycin HCl 1 GM in Premix Bag 1 BAG IVPB SCH (11:34)
[2018-06-20] MEDS: K-Phos Neutral 250 MG TAB PO SCH ×3 (12:21→16:57)
[2018-06-20] MEDS: Midodrine HCl 5 MG TAB PO SCH ×3 (12:22→22:20)
[2018-06-20] MEDS: Carvedilol 3.125 MG TAB PO SCH ×2 (12:23→22:19)
[2018-06-20] MEDS: predniSONE 20 MG TAB PO SCH (12:23)
[2018-06-20] MEDS: Senokot S 8.6-50 MG TAB PO SCH ×2 (12:24→22:20)
[2018-06-20] MEDS: Multivit, Therapeutic 1 TAB PO SCH (12:24)
[2018-06-20] MEDS: Doxycycline 100 MG CAP PO SCH ×2 (12:24→22:19)
[2018-06-20] MEDS: Folic Acid 1 MG TAB PO SCH (12:24)
[2018-06-20] MEDS: Estrogens, Conjugated 30 GM TUBE VAG SCH (12:26)
[2018-06-20] MEDS: Cyanocobalamin (Vitamin B-12) 1,000 MCG TAB PO SCH (12:27)
[2018-06-20] MEDS: pyridOXINE 50 MG (B6) TAB PO SCH (12:27)
[2018-06-20] MEDS: Apixaban 2.5 MG TAB PO SCH (12:28)
[2018-06-20] MEDS: Aspirin 81 mg Enteric Coated Tablet PO SCH (12:54)
[2018-06-20] MEDS: D5 0.9% NS w/ 20 mEq KCl 1,000 ML IV SCH (14:49)
--- NOTE | 2018-06-20 16:43 | PRG ---
DATE OF SERVICE: 06/20/2018 SERVICE: Pulmonary Medicine. INTERVAL HISTORY: The patient is doing great from respiratory standpoint. Denies any current chest pain, fevers, chills, nausea, or vomiting. She is breathing comfortably. Her strength is still quite poor. She gets choked up on almost anything that she eats. PHYSICAL EXAMINATION: VITAL SIGNS: Afebrile, pulse 95, blood pressure 106/71, respirations 16, and saturation 96% on 3 L nasal cannula. GENERAL: The patient is awake and alert, in no apparent distress. LUNGS: Decent air entry. Dependent crackles are noted. There is no prolonged expiratory phase or wheezing present. HEART: Normal rate and regular. ABDOMEN: Soft, nontender, and nondistended. Bowel sounds are positive. MUSCULOSKELETAL: No cyanosis or clubbing. There is trace 1+ pitting in the bilateral lower extremities. NEUROLOGIC: Grossly nonfocal. LABORATORY DATA: WBC 8.7, hemoglobin 9.2, and platelets 197,000. Potassium 3.0. Basic metabolic profile is otherwise unremarkable. Liver function studies are normal. Troponin 0.43, which is gently downtrending, and BNP 819. Respiratory virus panel is growing RSV-B. Influenza A and B are negative, blood cultures x2 are negative. Urine culture is growing a gram-negative joana, sensitivities pending. ASSESSMENT: 1. Acute hypoxic respiratory failure. 2. Healthcare-associated pneumonia, possibly secondary to respiratory syncytial virus B. 3. Severe sepsis, improving. 4. [id number] myocardial infarction, likely demand. 5. Myopathy with progressive deconditioning/weakness. 6. Oropharyngeal dysphagia. 7. Acute pulmonary embolism, small. DISCUSSION AND PLAN: We will replace the potassium. Empiric antibiotics will be continued through time. We will touch base with Speech Pathology to see whether or not she would benefit from modified barium swallow, or GI consultation. Pulmonary/Critical Care will continue to follow along. Job ID: [id number]
--- NOTE | 2018-06-20 21:39 | PDOC.PN ---
- Subjective Encounter Start Date: 06/20/18 Encounter Start Time: 11:00 Patient seen and examined for Sepsis/Pneumonia. Cough +. Feels somewhat better. No fever. No new complaints. No overnight events - Objective Resuscitation Status - Order Detail: 06/19/18 12:29 Resuscitation Status Routine Resuscitation Status: DNAR: NO Resuscitation Discussed with: confirmed with patient MAR Reviewed: Yes Vital Signs & Weight: Vital Signs (12 hours) Temp Pulse Resp BP Pulse Ox 06/20/18 15:47 97.2 F L 90 19 92/49 L 93 L 06/20/18 11:34 98.9 F 81 15 111/55 L 92 L Weight Admit Weight 87 lb 2 oz Weight 87 lb 2 oz Result Diagrams: 06/21/18 04:48 06/21/18 04:48 Additional Labs: Accuchecks 06/20/18 06/20/18 17:26 05:58 POC Glucose 200 H 132 H Radiology Reviewed by me: Yes (CTA - reviewed) EKG Reviewed by me: Yes (Tele SR) Phys Exam - Physical Examination Constitutional: NAD Respiratory: no wheezing Bibasilar rales with rhonchi, No accessory muscle use Cardiovascular: RRR, no rub no heaves/pulsations Gastrointestinal: soft, non-tender, no distention, positive bowel sounds Musculoskeletal: no edema, pulses present Neurological: non-focal, moves all 4 limbs Psychiatric: normal affect, A&O x 3 Dx/Plan - Plan DVT proph w/SCDs 1. Sepsis with acute organ dysfunction secondary to Aspiration pneumonia/RSV bronchitis 2. Left pulmonary embolism. 3. Catheter-associated urinary tract infection/Chronic urinary retention with indwelling Og catheter. 4. Swallow dysfunction. 5. Multiple electrolyte abnormalities including hypokalemia, hypophosphatemia, and hypomagnesemia. 6. Chronically-elevated troponins. 7. Severe protein-calorie malnutrition. 8. Elevated inflammatory markers. 9. Chronic anemia. 10. Unknown myopathy, on chronic steroids. 11. Hypothyroidism. 12. History of transient ischemic attack. 13. Peptic ulcer disease. 14. Dyslipidemia. 15. History of cardiac arrest in 2017. 16. History of percutaneous endoscopic gastrostomy tube and tracheostomy with subsequent removal. 17. Atrophic vaginitis, on estrogen. 18. Physical deconditioning. 19. Decubitus ulcer over the sacrum, stage II, present on admission. 20. Degenerative joint disease. 21. Chronic diastolic heart failure. 22. Hypothyroidism. 23. Diabetes mellitus, type 2. PLAN: Cont Atbx Replace electrolytes Cont IVF Cont diet per SERVICE ORDER DISPATCHER Cont current meds as below AM labs Microbiology 06/19/18 15:30 Nasopharyngeal swab Respiratory Virus Panel (PCR) - Final 06/19/18 10:15 Nasal swab Influenza Types A,B Direct EIA - Final 06/19/18 08:52 Venous blood - Right Arm Blood Culture - Preliminary Specimen has been received and culture in progress. No Growth to date. 06/19/18 08:02 Venous blood - Right Hand Blood Culture - Preliminary Specimen has been received and culture in progress. No Growth to date. 06/19/18 07:55 Urine og catheter Urine Culture - Preliminary Gram Negative [facility] Tests 06/19/18 06/19/18 07:55 07:55 Ur L.pneumophila Ag Negative Ur Strep pneumoniae Ag NEGATIVE Review of Systems - Review of Systems Constitutional: negative: fever, chills, sweats, weakness, malaise, other Cardiovascular: negative: chest pain, palpitations, orthopnea, paroxysmal nocturnal dyspnea, edema, light headedness, other Genitourinary: negative: Dysuria, Frequency, Incontinence, Hematuria, Retention , Other - Medications/Allergies Allergies/Adverse Reactions: Allergies Allergy/AdvReac Type Severity Reaction Status Date / Time latex Allergy Mild Verified 04/22/18 22:52 Medications: Current Medications Acetaminophen (Tylenol) 650 mg PO Q4H PRN PRN Reason: Headache/Fever/Mild Pain (1-3) Apixaban (Eliquis) 2.5 mg PO BID [facility] Last Admin: 06/20/18 12:28 Dose: Not Given Aspirin (Ecotrin) 81 mg PO DAILY [facility] Last Admin: 06/20/18 12:54 Dose: 81 mg Bisacodyl (Dulcolax) 10 mg PO DAILYPRN PRN PRN Reason: Constipation Calcium Carbonate (Tums) 1,000 mg PO Q4H PRN PRN Reason: Heartburn or Indigestion Carvedilol (Coreg) 3.125 mg PO BID [facility] Last Admin: 06/20/18 12:23 Dose: Not Given Cyanocobalamin (Vitamin B-12) 1,000 mcg PO DAILY [facility] Last Admin: 06/20/18 12:27 Dose: Not Given Dextrose/Water (Dextrose 50%) 25 gm SLOW IVP PRN PRN PRN Reason: Hypoglycemia Doxycycline Hyclate (Vibramycin) 100 mg PO BID [facility] Last Admin: 06/20/18 12:24 Dose: Not Given Estrogens Conjugated (Premarin Cream) 1 gm VAG HS [facility] Last Admin: 06/20/18 12:26 Dose: Not Given Folic Acid (Folvite) 1 mg PO DAILY [facility] Last Admin: 06/20/18 12:24 Dose: Not Given Glucagon (Glucagon) 1 mg IM PRN PRN PRN Reason: Hypoglycemia Piperacillin Sod/Tazobactam (Sod 3.375 gm/ Sodium Chloride) 100 mls @ 200 mls/ hr IVPB 0300,0900,1500,2100 [facility] Last Admin: 06/20/18 14:48 Dose: 100 mls Dextrose/Water (D5w) 1,000 mls @ 0 mls/hr IV .Q0M PRN PRN Reason: Hypoglycemia Vancomycin HCl 1 gm/ Device 200 mls @ 200 mls/hr IVPB 1000 [facility] Last Admin: 06/20/18 11:34 Dose: 200 mls Insulin Human Regular (Humulin R) 0 units SC .MILD SLIDING SCALE PRN PRN Reason: Mild Correctional Scale Insulin Human Regular (Humulin R) 0 units SC .BEDTIME SLIDING SC PRN PRN Reason: Bedtime Correctional Scale Levothyroxine Sodium (Synthroid) 100 mcg PO 0600 [facility] Last Admin: 06/20/18 05:27 Dose: Not Given Midodrine (Proamatine) 5 mg PO TID [facility] Last Admin: 06/20/18 14:49 Dose: 5 mg Miscellaneous Medication (Phos-Nak) 2 pkt PER TUBE BID-WM [facility] Last Admin: 06/20/18 16:57 Dose: Not Given Miscellaneous Medication (Pharmacy To Dose) 1 each IVPB DAILYPRN PRN PRN Reason: LABS Multivitamins (Theragran) 1 tab PO DAILY [facility] Last Admin: 06/20/18 12:24 Dose: Not Given Nitroglycerin (Nitrostat) 0.4 mg PO Q5MIN PRN PRN Reason: Chest Pain Ondansetron HCl (Zofran Odt) 4 mg PO Q6H PRN PRN Reason: Nausea/Vomiting Ondansetron HCl (Zofran) 4 mg IVP Q6H PRN PRN Reason: Nausea/Vomiting Pantoprazole Sodium (Protonix) 40 mg PO DAILY [facility] Last Admin: 06/20/18 12:54 Dose: 40 mg Phosphorus (Kphos Neutral) 500 mg PO TID-WM [facility] Last Admin: 06/20/18 16:57 Dose: Not Given Prednisone (Prednisone) 20 mg PO DAILY [facility] Pyridoxine HCl (Vitamin B 6) 50 mg PO DAILY [facility] Last Admin: 06/20/18 12:27 Dose: Not Given Senna/Docusate Sodium (Senokot S) 1 tab PO BID [facility] Last Admin: 06/20/18 12:24 Dose: Not Given Sertraline HCl (Zoloft) 50 mg PO DAILY [facility] Last Admin: 06/20/18 12:54 Dose: 50 mg Sodium Chloride (Flush - Normal Saline) 10 ml IVF PRN PRN PRN Reason: Saline Flush Sodium Chloride (Flush - Normal Saline) 10 ml IVF PRN PRN PRN Reason: Saline Flush Thiamine HCl (Thiamine) 100 mg PO DAILY [facility] Last Admin: 06/20/18 12:27 Dose: Not Given Tramadol HCl (Ultram) 50 mg PO Q4H PRN PRN Reason: Moderate Pain (4-6)
--- NOTE | 2018-06-21 00:21 | CON ---
DATE OF CONSULTATION: 06/20/2018 GI INPATIENT CONSULTATION NOTE REQUESTING PHYSICIAN: Arjun Galvan MD REASON FOR CONSULTATION: Dysphagia. HISTORY OF PRESENT ILLNESS: Bianca Noble is a very pleasant, but very frail 82-year-old woman. She has previously seen my GI colleague, Dr. Tung Tyler. She has a past medical history significant for PEA arrest which occurred immediately following an EGD at our endoscopy center in December of 2016. The EGD was being performed for epigastric pain and nausea. Of note, she had a prior history of chronic pancreatitis. I note that on that EGD that she had only grade A esophagitis. No evidence of esophageal stricture. There was a 1 cm hiatal hernia, just mild gastritis. At any rate, the patient was hospitalized for an extended period of time after this. She did poorly coming off the ventilator and actually had had a tracheostomy and PEG tube placed at that time. The PEG tube was subsequently removed. The patient is unclear about how long she had the PEG tube in before it was removed, but she does not think it was very long. She has been taking nutrition orally since that time. Over the past several weeks and months, the patient has evidently been losing a lot of weight. There has been a decline in her ability to meet her nutritional needs orally. This is at least in part due to what appears to be an oropharyngeal dysphagia. She reports coughing and shortness of breath with multiple consistencies, particularly with thin liquids. She was admitted to the hospital here yesterday with worsening shortness of breath. She was found to have bilateral lower lung infiltrates most consistent with aspiration pneumonia and also a small pulmonary embolus. She was evaluated by Speech Pathology earlier today and their evaluation demonstrated aspiration with thin liquids. They had recommended mechanical soft diet and thickened liquids for her. There are concerns that she is not going to be able to meet her nutritional needs and that this is contributing to her overall debility and so the issue of possible PEG placement has been raised. REVIEW OF SYSTEMS: Full review of systems including constitutional, head, eyes, ears, nose, throat, GI, , cardiovascular, respiratory, musculoskeletal, neurologic systems is negative, except as noted in the HPI. PAST MEDICAL HISTORY: 1. PEA arrest requiring tracheostomy and PEG tube placement, December 2016, both subsequently discontinued. 2. Hypertension. 3. Chronic diastolic heart failure. 4. Hyperlipidemia. 5. Major depressive disorder. 6. Hypothyroidism. 7. Stage II sacral decubitus ulcer. 8. Type 2 diabetes. 9. Urinary retention. 10. Protein-calorie malnutrition. 11. Myopathy. PAST SURGICAL HISTORY: 1. Spine surgery. 2. Cholecystectomy. 3. Thyroidectomy. 4. Cataract surgery. 5. Chronic pancreatitis. ALLERGIES: NO KNOWN DRUG ALLERGIES. MEDICATIONS: Current inpatient medications include; 1. Eliquis 2.5 mg b.i.d. 2. Aspirin 81 mg daily. 3. Coreg. 4. Vitamin B12. 5. Doxycycline. 6. Folic acid. 7. Levothyroxine. 8. Midodrine. 9. Multivitamin. 10. Protonix. 11. IV Zosyn 3.375 g every 6 hours. 12. Prednisone 20 mg daily. 13. Vitamin B6. 14. Zoloft. 15. Vancomycin 1 g IV q.24 hours. FAMILY HISTORY: Noncontributory. SOCIAL HISTORY: [facility] in a [facility]. She is DNR/DNI. No alcohol, tobacco, or drug use. PHYSICAL EXAMINATION: VITAL SIGNS: Temperature 97.2, pulse 90, blood pressure 92/49, and 93% oxygen saturation on 2.5 L nasal cannula. GENERAL: Frail 82-year-old woman lying in bed comfortably, in no acute distress. SKIN: No jaundice. No rashes are palpable. She does have a sacral decubitus ulcer, which I do not examine today. HEENT: Eyes, no scleral icterus. Extraocular movements intact. ENT, mucous membranes moist. No oral lesions. LYMPH: No submandibular or supraclavicular lymphadenopathy. Thyroid, nontender to palpation. HEART: Regular rate and rhythm. LUNGS: Bibasilar crackles. No respiratory distress. ABDOMEN: Flat. Bowel sounds present. Soft, nontender to palpation. I really do not see much in the way of a surgical scar in the left upper quadrant. This is obviously healed very well. EXTREMITIES: Wasting of the extremities x4. No peripheral edema. Vessels, radial pulses 2+ bilaterally. NEUROLOGIC: Cranial nerves 2 through 12 intact bilaterally. LABORATORY STUDIES: WBC 8.7, hemoglobin 9.2, and platelets 197. Sodium 140, potassium 3.0, BUN 18, creatinine 0.48, glucose 132, total bilirubin 0.4, alkaline phosphatase 75, AST 25, and ALT 35. Troponin was 0.434. BNP 819.5. Albumin 2.1. Urinalysis showed 11 to 20 wbc's. Urine Legionella and strep pneumo antigens are negative. Swab for RSV B is positive. Swab for influenza is negative. Urine culture is growing gram-negative rods. Blood cultures show no growth to date, drawn yesterday. IMAGING STUDIES: CTA of the thorax demonstrates a small left-sided pulmonary embolus. There are bilateral lower lobe consolidative changes and a hiatal hernia noted. ASSESSMENT AND PLAN: 1. Oropharyngeal dysphagia. 2. Malnutrition. 3. Aspiration pneumonia, versus respiratory syncytial virus pneumonia. I had a long discussion with the patient today regarding her presentation. This does seem consistent with aspiration pneumonia, though I do note the positive respiratory syncytial virus swab. She has a small pulmonary embolus, which is likely not driving her symptoms actually. More to the point regarding her oropharyngeal dysphagia and malnutrition, this is indeed likely contributing to her overall debility. There is concern that she is not going to be able to take in adequate calories by mouth and that she will continue to have significant aspiration risk with oral intake. That being the case, consideration of PEG placement is certainly reasonable. The problem is that she is quite obviously very high risk for any invasive procedure. In fact, she had a pulseless electrical activity arrest just last year during a routine upper endoscopy. The patient is not sure that she would want to go through with any procedures and this is certainly understandable. That being said, if she needs enteral nutrition, then PEG placement is the best longer term solution. At this time, I have advised that we hold her Eliquis to give us options over the weekend. The patient wants to discuss the matter further with family members and come to a decision. If everyone decides to accept the procedure risks and go through with PEG placement, this could be potentially performed over the weekend. Please call at anytime with questions or concerns. Job ID: [id number]
--- NOTE | 2018-06-21 01:30 | CON ---
DATE OF CONSULTATION: HISTORY OF PRESENT ILLNESS: Bianca Noble is an 82-year-old white female, that I have seen the last 2 times she was in the hospital in April and also earlier this month. In March 2011, she underwent cardiac catheterization by Dr. Granda for progressive weakness and she had no significant coronary artery disease. She has been followed by Dr. Garcia and found to have some type of myopathy and has been placed on steroids. In December 2016, she underwent EGD for evaluation of her weight loss. She had a respiratory arrest and an episode of pulseless electrical activity. She received chest compressions for a short time. EGD was performed for the progressive epigastric pain and also a 40-pound weight loss. Ultimately, she underwent placement of tracheostomy and PEG tubes, and was discharged to [facility]. She apparently had tracheal edema requiring re-intubation prior to placement of the tracheostomy. Over the last year, she has had progressive muscle weakness and apparently had more than 18 falls at home. In April, she was admitted with progressive muscle weakness at home. Troponin I was 0.453. She denied any chest discomfort. Adenosine Cardiolite testing revealed no evidence of ischemia. She was again admitted with weakness earlier this month. Apparently had some type of syncopal episode, although exact etiology of that was unclear. She did not have any significant rhythm abnormalities. She now was admitted with increased cough, shortness of breath and finding of low oxygen saturation at [facility]. Blood pressure in the 90s. She denies any chest discomfort. Once again, her troponin I is elevated as it is chronically. PAST MEDICAL HISTORY: Hypertension, diastolic dysfunction, peptic ulcer disease , dyslipidemia, hypothyroidism, depression, history of TIA, status post respiratory arrest with placement of tracheostomy and PEG tube, diabetes mellitus, myopathy of uncertain etiology. OPERATIONS: Cervical spine surgery, cholecystectomy, thyroidectomy, and cataract surgery. MEDICATIONS: 1. Xanax 0.1 mg p.r.n. 2. Amitriptyline 100 at bedtime. 3. Aspirin 325 daily. 4. Carvedilol 3.125 b.i.d. 5. CoQ10 of 30 daily. 6. Januvia 25 mg daily. 7. Levothyroxine 100 mcg daily. 8. Megace 40 mg b.i.d. 9. Omeprazole 40 mg daily. 10. Prednisone 20 b.i.d. 11. Zoloft 50 daily. 12. Premarin 1 g daily. 13. Multivitamin daily. 14. Tramadol p.r.n. 15. Vitamin C. 16. Vitamin B12. 17. Zinc sulfate. ALLERGIES: LATEX. SOCIAL HISTORY: She smoked in the past. She rarely drinks. She is DNR. REVIEW OF SYSTEMS: A 12-point review of systems is unremarkable. PHYSICAL EXAMINATION: VITAL SIGNS: Blood pressure 92/49, pulse of 90. HEENT: PERRL. NECK: Supple. CHEST: Clear. CARDIAC: S1 and S2 normal without any S3, S4, or murmurs. ABDOMEN: Normal bowel sounds without tenderness or organomegaly. EXTREMITIES: Revealed no clubbing, cyanosis, or edema. NEUROLOGIC: Grossly intact except for weakness. LABORATORY DATA: EKG reveals normal sinus rhythm with evidence for septal infarction. Hemoglobin 9.2, hematocrit 27.5, white count 8700, platelets 197, 000. Sodium 140, potassium 3.0, chloride 105, carbon dioxide 29, BUN 18, creatinine 0.48. Troponin I 0.464. IMPRESSION: 1. Chronically elevated troponin Is. Over the last 3 or 4 months, all of her troponin Is have been abnormal. 2. Probable community-acquired pneumonia. 3. Episode of unresponsiveness earlier this month, uncertain etiology. 4. Myopathy with progressive muscle weakness, bedridden at the present time. 5. History of wandering atrial pacemaker. 6. History of multiple falls. 7. History of transient ischemic attack. 8. Hyperlipidemia. 9. Hypothyroidism. 10. Status post episode of pulseless electrical activity with cardiac arrest in December 2016 after an EGD. 11. Osteoarthritis. 12. Depression. RECOMMENDATIONS: Ms. Noble has chronically elevated troponin Is and they are even somewhat lower at this time. She denies any chest discomfort. She has had negative Cardiolite within the past several months. She is DNR and bedridden in the long term. I do not feel that any further cardiac evaluation is warranted. Job ID: [id number] [facility]
[2018-06-21] MEDS: Piperacillin/Tazobactam 3.375 GM in Sodium Chloride 0.9% 100 ML IVPB SCH ×4 (04:10→22:31)
[2018-06-21 05:34] LABS: #Lymphocytes 0.8 thou/uL (1.20-3.40); #Monocytes 0.2 thou/uL (0.11-0.59); #Neutrophils 7.4 thou/uL (1.40-6.50); %Basophils 0.2 % (0.0-1.0); %Eosinophils 0.1 % (0.0-10.0); %Monocytes 2.4 % (0.0-10.0); %Neutrophils 88.4 % (42.0-75.0); Hemoglobin 8.4 g/dL (12.0-16.0); Mean Corpuscular HGB CONC 33.4 g/dL (32.0-36.0); Mean Corpuscular Hemoglobin 31.4 pg (27.0-31.0); Mean Corpuscular Volume 94.1 fL (78.0-98.0); Mean Platelet Volume 7.6 fL (7.4-10.4); Platelet Count 193 thou/uL (130-400); RBC Distribution Width 13.9 % (11.5-14.5); Red Blood Cell (RBC) Count 2.68 mill/uL (4.20-5.40); White Blood Cell (WBC) Count 8.3 thou/uL (4.8-10.8)
[2018-06-21 05:48] LABS: ALT (SGPT) 32 U/L (8-55); AST (SGOT) 22 U/L (5-34); Albumin 1.9 g/dL (3.4-4.8); Alkaline Phosphatase 72 U/L (40-150); Anion Gap 11 mmol/L (10-20); BUN (Urea Nitrogen) 17 mg/dL (9.8-20.1); Bilirubin, Total 0.3 mg/dL (0.2-1.2); Calc. Creatinine Clearance 60 mL/min (70-130); Calcium 8.5 mg/dL (7.8-10.44); Carbon Dioxide 25 mmol/L (23-31); Chloride 107 mmol/L (98-107); Estimated GFR-MDRD Greater than 90; Globulin 2.4 g/dL (2.4-3.5); Glucose 88 mg/dL (83-110); Magnesium 1.7 mg/dL (1.6-2.6); Phosphorus 2.2 mg/dL (2.3-4.7); Potassium 3.3 mmol/L (3.5-5.1); Protein, Total 4.3 g/dL (6.0-8.3); Sodium 140 mmol/L (136-145)
[2018-06-21] MEDS: Levothyroxine Sodium 100 MCG TAB PO SCH (06:20)
[2018-06-21] MEDS: predniSONE 20 MG TAB PO SCH (08:37)
[2018-06-21] MEDS: Folic Acid 1 MG TAB PO SCH (08:37)
[2018-06-21] MEDS: Doxycycline 100 MG CAP PO SCH ×2 (08:37→22:30)
[2018-06-21] MEDS: Multivit, Therapeutic 1 TAB PO SCH (08:38)
[2018-06-21] MEDS: Aspirin 81 mg Enteric Coated Tablet PO SCH (08:38)
[2018-06-21] MEDS: Cyanocobalamin (Vitamin B-12) 1,000 MCG TAB PO SCH (08:38)
[2018-06-21] MEDS: Carvedilol 3.125 MG TAB PO SCH ×2 (08:38→22:30)
[2018-06-21] MEDS: K-Phos Neutral 250 MG TAB PO SCH ×3 (08:38→17:06)
[2018-06-21] MEDS: Midodrine HCl 5 MG TAB PO SCH ×3 (08:38→22:31)
[2018-06-21] MEDS: pyridOXINE 50 MG (B6) TAB PO SCH (08:38)
[2018-06-21] MEDS: Senokot S 8.6-50 MG TAB PO SCH ×2 (08:38→22:31)
[2018-06-21 10:02] LABS: Vancomycin, Trough 9.4 ug/mL
[2018-06-21] MEDS: Vancomycin HCl 1 GM in Premix Bag 1 BAG IVPB SCH (11:27)
[2018-06-21] MEDS: Vancomycin HCl 1.25 GM in Sodium Chloride 0.9% 250 ML 250 ML IVPB SCH (11:28)
--- NOTE | 2018-06-21 15:16 | PRG ---
DATE OF SERVICE: 06/21/2018 SERVICE: Pulmonary Medicine. INTERVAL HISTORY: The patient is doing fine from a respiratory standpoint. Denies any current nausea, vomiting, fevers, or chills. She feels like her energy is improved a little bit as well as her strength. She does not have any cough or sputum production. There has been no interval change to her condition otherwise. PHYSICAL EXAMINATION: VITAL SIGNS: Afebrile, pulse 69, blood pressure 122/58, respirations 17, and saturation 98% on 2 L nasal cannula. GENERAL: The patient is awake, alert, in no apparent distress. LUNGS: Decent air entry. Crackles are present dependently. There is no prolonged expiratory phase or wheezing present. HEART: Normal rate, regular. ABDOMEN: Soft, nontender, and nondistended. Bowel sounds are positive. MUSCULOSKELETAL: No cyanosis or clubbing. No pitting in bilateral lower extremities. NEUROLOGIC: Grossly nonfocal. LABORATORY DATA: WBC 8.3, hemoglobin 8.4, and platelets 193,000. Neutrophil count remains elevated at 84%. Potassium 3.3. Basic metabolic profile is otherwise unremarkable. Liver function studies are also unremarkable. Phosphorus 2.2. Klebsiella pneumoniae are growing in urine culture. Blood cultures x2, and influenza is negative. Respiratory virus panel is positive for respiratory syncytial virus B. ASSESSMENT: 1. Acute hypoxic respiratory failure. 2. Healthcare-associated pneumonia, possibly secondary to aspiration and/or respiratory syncytial virus B. 3. Severe sepsis, resolving. 4. Vyk-HE-[id number] myocardial infarction, from demand. 5. Myopathy with progressive deconditioning/weakness. 6. Oropharyngeal dysphagia. 7. Acute pulmonary embolism, small. 8. Hypophosphatemia. 9. Hypokalemia. 10. Severe protein-calorie malnutrition. DISCUSSION AND PLAN: The patient will require anticoagulation moving forward. I would only give her minimum window necessary in order to complete a PEG tube if the family chooses to proceed in that direction. If they decide against PEG tube placement, I do think that comfort care only with hospice disposition would be most appropriate. I will replace the phosphorus and potassium today. Pulmonary/Critical Care will continue to follow along while the patient remains in this location. Job ID: [id number]
[2018-06-21] MEDS ORDERED: Potassium Phosphate 30 MMOL in Sodium Chloride 0.9% 500 ML IVPB SCH (15:30)
--- NOTE | 2018-06-21 16:45 | PRG ---
DATE OF SERVICE: 06/21/2018 SUBJECTIVE: The patient is about the same. She does not have any abdominal pain. She denies any nausea or vomiting. OBJECTIVE: VITAL SIGNS: Temperature is 98.5, blood pressure 122/58, and pulse is 69. GENERAL: She is alert, but weak, but no distress. HEENT: Head exam shows anicteric sclerae. NECK: Supple. CV: Shows normal S1 and S2. Regular rate and rhythm. CHEST: Shows bilateral rhonchi, but good air flow. ABDOMEN: Soft and mildly protuberant, but no distention or tenderness. She has active bowel sounds. EXTREMITIES: Shows no edema. LABORATORY DATA: WBCs 8.3, hemoglobin 8.4, and platelet count of 193. Electrolytes are within normal range. Creatinine 0.47. LFTs are normal. ASSESSMENT: 1. Status post hypoxic respiratory failure. 2. Pneumonia, viral versus aspiration. 3. Non-ST myocardial infarction. 4. Physical deconditioning. 5. Oropharyngeal dysphagia. I asked Ms. Noble again and she does not wish to have a gastrostomy feeding tube. I spoke to the , who states that their son is coming in from [facility] to have a family discussion with Ms. Noble. RECOMMENDATIONS: No G-tube per patient. However, the family is planning to discuss with her later [facility]. I will have Dr. Sigala to follow up with her tomorrow. Job ID: [id number]
[2018-06-21] MEDS: Estrogens, Conjugated 30 GM TUBE VAG SCH (22:31)
--- NOTE | 2018-06-21 22:42 | PDOC.PN ---
- Subjective Encounter Start Date: 06/21/18 Encounter Start Time: 09:30 Patient seen and examined for multiple medical issues. Feels gen weak. No fever/ chills. No new complaints. No overnight events - Objective Resuscitation Status - Order Detail: 06/19/18 12:29 Resuscitation Status Routine Resuscitation Status: DNAR: NO Resuscitation Discussed with: confirmed with patient MAR Reviewed: Yes Vital Signs & Weight: Vital Signs (12 hours) Temp Pulse Resp BP Pulse Ox 06/21/18 15:40 99.1 F 71 20 112/80 100 06/21/18 12:00 98.5 F 69 17 122/58 L 98 Weight Admit Weight 87 lb 2 oz Weight 91 lb I&O: 06/20/18 06/21/18 06/22/18 06:59 06:59 06:59 Intake Total 300 Output Total 275 Balance 25 Result Diagrams: 06/21/18 04:48 06/21/18 04:48 Additional Labs: Accuchecks 06/21/18 06/21/18 06/21/18 20:41 17:27 13:03 POC Glucose 87 111 H 111 H 06/21/18 06/20/18 05:53 20:33 POC Glucose 91 213 H EKG Reviewed by me: Yes (Tele SR) Phys Exam - Physical Examination Constitutional: NAD Respiratory: no wheezing, no rhonchi Cardiovascular: RRR, no rub Gastrointestinal: soft, non-tender, positive bowel sounds Musculoskeletal: no edema Neurological: moves all 4 limbs Dx/Plan - Plan DVT proph w/SCDs 1. Sepsis with acute organ dysfunction secondary to Aspiration pneumonia/RSV bronchitis 2. Left pulmonary embolism. 3. Catheter-associated urinary tract infection/Chronic urinary retention with indwelling Padron catheter. 4. Swallow dysfunction. 5. Multiple electrolyte abnormalities including hypokalemia, hypophosphatemia, and hypomagnesemia. 6. Chronically-elevated troponins. 7. Severe protein-calorie malnutrition. 8. Elevated inflammatory markers. 9. Chronic anemia. 10. Unknown myopathy, on chronic steroids. 11. Hypothyroidism. 12. History of transient ischemic attack. 13. Peptic ulcer disease. 14. Dyslipidemia. 15. History of cardiac arrest in 2017. 16. History of percutaneous endoscopic gastrostomy tube and tracheostomy with subsequent removal. 17. Atrophic vaginitis, on estrogen. 18. Physical deconditioning. 19. Decubitus ulcer over the sacrum, stage II, present on admission. 20. Degenerative joint disease. 21. Chronic diastolic heart failure. 22. Hypothyroidism. 23. Diabetes mellitus, type 2. PLAN: Patient is declining PEG - she will still d/w family tonight Replace electrolytes Cont Atbx Cont IVF Anticoag on hold for ?PEG Cont Steroids AM labs Cont current meds as below Review of Systems - Review of Systems Respiratory: negative: Cough, Dry, Shortness of Breath, Hemoptysis, SOB with Excertion, Pleuritic Pain, Sputum, Wheezing Cardiovascular: negative: chest pain, palpitations, orthopnea, paroxysmal nocturnal dyspnea, edema, light headedness, other - Medications/Allergies Allergies/Adverse Reactions: Allergies Allergy/AdvReac Type Severity Reaction Status Date / Time latex Allergy Mild Verified 04/22/18 22:52 Medications: Current Medications Acetaminophen (Tylenol) 650 mg PO Q4H PRN PRN Reason: Headache/Fever/Mild Pain (1-3) Apixaban (Eliquis) 2.5 mg PO BID [facility] Last Admin: 06/20/18 12:28 Dose: Not Given Aspirin (Ecotrin) 81 mg PO DAILY [facility] Last Admin: 06/21/18 08:38 Dose: 81 mg Bisacodyl (Dulcolax) 10 mg PO DAILYPRN PRN PRN Reason: Constipation Calcium Carbonate (Tums) 1,000 mg PO Q4H PRN PRN Reason: Heartburn or Indigestion Carvedilol (Coreg) 3.125 mg PO BID [facility] Last Admin: 06/21/18 22:30 Dose: 3.125 mg Cyanocobalamin (Vitamin B-12) 1,000 mcg PO DAILY [facility] Last Admin: 06/21/18 08:38 Dose: 1,000 mcg Dextrose/Water (Dextrose 50%) 25 gm SLOW IVP PRN PRN PRN Reason: Hypoglycemia Doxycycline Hyclate (Vibramycin) 100 mg PO BID [facility] Last Admin: 06/21/18 22:30 Dose: 100 mg Estrogens Conjugated (Premarin Cream) 1 gm VAG HS [facility] Last Admin: 06/21/18 22:31 Dose: 1 gm Folic Acid (Folvite) 1 mg PO DAILY [facility] Last Admin: 06/21/18 08:37 Dose: 1 mg Glucagon (Glucagon) 1 mg IM PRN PRN PRN Reason: Hypoglycemia Piperacillin Sod/Tazobactam (Sod 3.375 gm/ Sodium Chloride) 100 mls @ 200 mls/ hr IVPB 0300,0900,1500,2100 [facility] Last Admin: 06/21/18 22:31 Dose: 100 mls Dextrose/Water (D5w) 1,000 mls @ 0 mls/hr IV .Q0M PRN PRN Reason: Hypoglycemia Vancomycin HCl 1.25 gm/ Sodium (Chloride) 250 mls @ 166.667 mls/hr IVPB 1100 [facility] Last Admin: 06/21/18 11:28 Dose: 250 mls Insulin Human Regular (Humulin R) 0 units SC .MILD SLIDING SCALE PRN PRN Reason: Mild Correctional Scale Insulin Human Regular (Humulin R) 0 units SC .BEDTIME SLIDING SC PRN PRN Reason: Bedtime Correctional Scale Levothyroxine Sodium (Synthroid) 100 mcg PO 0600 [facility] Last Admin: 06/21/18 06:20 Dose: 100 mcg Midodrine (Proamatine) 5 mg PO TID [facility] Last Admin: 06/21/18 22:31 Dose: 5 mg Miscellaneous Medication (Phos-Nak) [facility] Last Admin: 06/21/18 17:05 Dose: 2 pkt Miscellaneous Medication (Pharmacy To Dose) 1 each IVPB DAILYPRN PRN PRN Reason: LABS Multivitamins (Theragran) 1 tab PO DAILY [facility] Last Admin: 06/21/18 08:38 Dose: 1 tab Nitroglycerin (Nitrostat) 0.4 mg PO Q5MIN PRN PRN Reason: Chest Pain Ondansetron HCl (Zofran Odt) 4 mg PO Q6H PRN PRN Reason: Nausea/Vomiting Ondansetron HCl (Zofran) 4 mg IVP Q6H PRN PRN Reason: Nausea/Vomiting Pantoprazole Sodium (Protonix) 40 mg PO DAILY [facility] Last Admin: 06/21/18 08:37 Dose: 40 mg Phosphorus (Kphos Neutral) 500 mg PO TID-[facility] Last Admin: 06/21/18 17:06 Dose: 500 mg Prednisone (Prednisone) 20 mg PO DAILY [facility] Last Admin: 06/21/18 08:37 Dose: 20 mg Pyridoxine HCl (Vitamin B 6) 50 mg PO DAILY [facility] Last Admin: 06/21/18 08:38 Dose: 50 mg Senna/Docusate Sodium (Senokot S) 1 tab PO BID [facility] Last Admin: 06/21/18 22:31 Dose: Not Given Sertraline HCl (Zoloft) 50 mg PO DAILY [facility] Last Admin: 06/21/18 08:38 Dose: 50 mg Sodium Chloride (Flush - Normal Saline) 10 ml IVF PRN PRN PRN Reason: Saline Flush Last Admin: 06/20/18 22:21 Dose: 10 ml Sodium Chloride (Flush - Normal Saline) 10 ml IVF PRN PRN PRN Reason: Saline Flush Thiamine HCl (Thiamine) 100 mg PO DAILY [facility] Last Admin: 06/21/18 08:37 Dose: 100 mg Tramadol HCl (Ultram) 50 mg PO Q4H PRN PRN Reason: Moderate Pain (4-6)
[2018-06-22] MEDS: Piperacillin/Tazobactam 3.375 GM in Sodium Chloride 0.9% 100 ML IVPB SCH ×4 (03:40→21:49)
[2018-06-22 05:55] LABS: ALT (SGPT) 33 U/L (8-55); AST (SGOT) 27 U/L (5-34); Alkaline Phosphatase 88 U/L (40-150); Anion Gap 13 mmol/L (10-20); BUN (Urea Nitrogen) 12 mg/dL (9.8-20.1); Bilirubin, Total 0.4 mg/dL (0.2-1.2); Calc. Creatinine Clearance 65 mL/min (70-130); Calcium 7.9 mg/dL (7.8-10.44); Carbon Dioxide 25 mmol/L (23-31); Chloride 109 mmol/L (98-107); Estimated GFR-MDRD Greater than 90; Globulin 2.7 g/dL (2.4-3.5); Glucose 68 mg/dL (83-110); Magnesium 1.7 mg/dL (1.6-2.6); Phosphorus 4.7 mg/dL (2.3-4.7); Potassium 4.1 mmol/L (3.5-5.1); Protein, Total 4.7 g/dL (6.0-8.3); Sodium 143 mmol/L (136-145)
[2018-06-22] MEDS: Levothyroxine Sodium 100 MCG TAB PO SCH (06:31)
[2018-06-22 06:57] LABS: Band 23 % (5-11); Hemoglobin 9.3 g/dL (12.0-16.0); Lymphocytes 11 % (21-51); MDiff Complete? YES; Mean Corpuscular Hemoglobin 31.3 pg (27.0-31.0); Mean Corpuscular Volume 95.1 fL (78.0-98.0); Mean Platelet Volume 7.6 fL (7.4-10.4); Metamyelocyte 1 % (0-0); Monocytes 4 % (0-10); Neutrophil 61 % (42-75); Platelet Count 198 thou/uL (130-400); RBC Distribution Width 14.3 % (11.5-14.5); Red Blood Cell (RBC) Count 2.97 mill/uL (4.20-5.40); Toxic Granulation SLIGHT; White Blood Cell (WBC) Count 10.4 thou/uL (4.8-10.8)
[2018-06-22] MEDS: Carvedilol 3.125 MG TAB PO SCH ×2 (08:25→21:50)
[2018-06-22] MEDS: Doxycycline 100 MG CAP PO SCH ×2 (08:26→21:49)
[2018-06-22] MEDS: pyridOXINE 50 MG (B6) TAB PO SCH (08:26)
[2018-06-22] MEDS: Midodrine HCl 5 MG TAB PO SCH ×3 (08:26→21:49)
[2018-06-22] MEDS: Multivit, Therapeutic 1 TAB PO SCH (08:26)
[2018-06-22] MEDS: Cyanocobalamin (Vitamin B-12) 1,000 MCG TAB PO SCH (08:26)
[2018-06-22] MEDS: predniSONE 20 MG TAB PO SCH (08:26)
[2018-06-22] MEDS: Megestrol Acetate 40 MG TAB PO SCH ×2 (08:26→21:49)
[2018-06-22] MEDS: Senokot S 8.6-50 MG TAB PO SCH ×2 (08:26→21:50)
[2018-06-22] MEDS: Folic Acid 1 MG TAB PO SCH (08:26)
[2018-06-22] MEDS: K-Phos Neutral 250 MG TAB PO SCH ×3 (08:27→16:54)
[2018-06-22] MEDS: Aspirin 81 mg Enteric Coated Tablet PO SCH (08:27)
[2018-06-22] MEDS ORDERED: Apixaban 2.5 MG TAB PO SCH (09:15)
[2018-06-22] MEDS: Vancomycin HCl 1.25 GM in Sodium Chloride 0.9% 250 ML 250 ML IVPB SCH (11:34)
[2018-06-22] MEDS: Nystatin 500,000 UNITS/5 ML UDCUP SSW SCH ×3 (12:53→21:49)
--- NOTE | 2018-06-22 13:06 | PRG ---
DATE OF SERVICE: SUBJECTIVE: The patient denies any new complaints at this time. She declines PEG tube. She also had a family discussion yesterday evening. The family is agreeable with this. She feels slightly better today. No cough, shortness of breath, wheezing reported. No nausea, vomiting, diarrhea. REVIEW OF SYSTEMS: As discussed above. No new focal deficit. OBJECTIVE: VITAL SIGNS: Temperature 98.1, pulse rate 71, respirations 20, blood pressure 115/57, O2 saturation 96% on room air. Intake of 300, output 750. Weight is improved to 93 pounds from 87 pounds on admission. CURRENT MEDICATIONS: Current medications were reviewed. The patient is currently on 1. Zosyn. 2. Vancomycin. 3. Aspirin. 4. Doxycycline. 5. Levothyroxine. 6. Megace. 7. Midodrine. 8. Protonix. 9. Prednisone. 10. Zoloft. 11. Multivitamins. PHYSICAL EXAMINATION: GENERAL: 82-year-old cachectic female, in no apparent distress. HEENT: Oral thrush noted. LUNGS: Lungs showed rales at bases. HEART: S1 and S2 present. Regular rate and rhythm. ABDOMEN: Soft. Bowel sounds present. EXTREMITIES: No calf tenderness. NEUROLOGY: No new focal deficit. Telemetry monitoring by my review showed sinus rhythm. LAB FINDINGS: WBC 10.4, hemoglobin 9.3, platelet 198, BUN 12, creatinine 0.45. LFTs normal. Albumin 2.0. Vancomycin level was 9.4. Blood cultures negative. Urine culture showed Klebsiella sensitive to ceftriaxone. Urinalysis showed 11 to 20 wbc's with 4+ bacteria. IMPRESSION: 1. Sepsis with acute organ dysfunction secondary to aspiration pneumonia/RSV bronchitis/Klebsiella urinary tract infection. We will discontinue vancomycin. Continue Zosyn along with doxycycline. We will continue nebulizer treatment as needed. 2. Left-sided pulmonary embolism, small. Anticoagulation will be resumed. 3. Catheter associated urinary tract infection/chronic urinary retention with indwelling Padron catheter. Plan as discussed above. 4. Swallow dysfunction. The patient is currently on mechanical soft with nectar thick diet. No straws with aspiration precautions. 5. Multiple electrolyte abnormalities including hypokalemia, hypophosphatemia, and hypomagnesemia. Her electrolytes have been replaced. 6. Chronically-elevated troponin. 7. Severe protein-calorie malnutrition. 8. Chronic anemia. 9. Myopathy of unknown type, on chronic steroids. 10. Elevated inflammatory markers. 11. Hypothyroidism. 12. History of cardiac arrest during an EGD. 13. Peptic ulcer disease. We will continue PPIs. 14. Dyslipidemia. 15. Atrophic vaginitis, on estrogen. 16. Physical deconditioning. 17. Decubitus ulcer over the sacrum, stage II, present on admission. 18. Diabetes mellitus type 2. We will continue sliding scale. 19. Chronic diastolic heart failure, appears to be compensated. 20. Hypothyroidism. We will continue levothyroxine. 21. Oral thrush. Will start Nystatin SSW, PLAN: Plan was discussed with the patient. She stated understanding. CODE STATUS: Do not resuscitate. Job ID: [id number] [facility]
--- NOTE | 2018-06-22 14:08 | PRG ---
DATE OF SERVICE: 06/22/2018 SUBJECTIVE: Ms. Noble is decided not to have a PEG tube placed. The nurse notes that she talked with the family about this yesterday afternoon when they got together and they deferred her decision. Also, the nurse notes that she has gotten stronger, she is feeding better with less issues with oropharyngeal dysphagia. She is getting her pills down much more quickly and swallowing with much more speed and overall seems better. The patient to me states that she likes to eat spaghetti. OBJECTIVE: VITAL SIGNS: Temperature is 98, pulse 69, and blood pressure is 129/56. LUNGS: Clear. HEART: Regular rate and rhythm. ABDOMEN: Nontender. She is frail and thin. LABORATORY DATA: White count is 10.4, hemoglobin 9.3, and platelet count 198. Sodium 143 and potassium 4.1. BUN and creatinine are 12 and 0.45. ASSESSMENT: 1. Pneumonia/respiratory syncytial virus B versus possibly some aspiration versus a combination. 2. Oropharyngeal dysphagia. This has been a chronic issue for her. She has had a previous PEG tube with her acute illness or symptoms worse, seems to be at least at bedside, her swallowing appears to be better by speech pathologist involved with nursing. In any event, the patient has refused the PEG tube recommendations. We would feed as per speech pathology recommendations. The patient and family are aware of the risk of aspiration per previous conversations with my partners and her healthcare providers. At this time, we will sign off. If I can be of any further assistance in her care from a GI standpoint, please do not hesitate to contact me. Job ID: [id number]
--- NOTE | 2018-06-22 14:25 | PRG ---
DATE OF SERVICE: 06/22/2018 SUBJECTIVE: This morning, she is awake and alert. Denies any shortness of breath, coughing, or wheezing. X-ray showed bilateral infiltrates, community-acquired. OBJECTIVE: VITAL SIGNS: Saturations are 96% on 2 L, respiratory rate 18, temperature 98, and blood pressure 120/56. CHEST: Decreased breath sounds. No wheezing. CARDIAC: Normal S1 and S2. No gallops. ABDOMEN: No masses. IMPRESSION: 1. Advanced age. ,bilateral bronchopneumonia. 2. Continue antibiotics, neb treatments, steroids. Job ID: [id number] [facility]
[2018-06-22] MEDS: Apixaban 2.5 MG TAB PO SCH (16:54)
[2018-06-22] MEDS: Estrogens, Conjugated 30 GM TUBE VAG SCH (21:50)
[2018-06-23] MEDS: Piperacillin/Tazobactam 3.375 GM in Sodium Chloride 0.9% 100 ML IVPB SCH ×4 (03:03→21:12)
[2018-06-23 05:55] LABS: #Basophils 0.1 thou/uL (0.0-0.2); #Lymphocytes 0.8 thou/uL (1.20-3.40); #Monocytes 0.3 thou/uL (0.11-0.59); #Neutrophils 7.6 thou/uL (1.40-6.50); %Basophils 0.8 % (0.0-1.0); %Eosinophils 0.3 % (0.0-10.0); %Lymphocytes 9.4 % (21.0-51.0); %Monocytes 3.8 % (0.0-10.0); %Neutrophils 85.8 % (42.0-75.0); Hemoglobin 8.8 g/dL (12.0-16.0); Mean Corpuscular HGB CONC 32.3 g/dL (32.0-36.0); Mean Corpuscular Hemoglobin 30.9 pg (27.0-31.0); Mean Corpuscular Volume 95.6 fL (78.0-98.0); Mean Platelet Volume 7.6 fL (7.4-10.4); Platelet Count 225 thou/uL (130-400); RBC Distribution Width 14.2 % (11.5-14.5); Red Blood Cell (RBC) Count 2.83 mill/uL (4.20-5.40); White Blood Cell (WBC) Count 8.9 thou/uL (4.8-10.8)
[2018-06-23 06:07] LABS: Anion Gap 13 mmol/L (10-20); BUN (Urea Nitrogen) 13 mg/dL (9.8-20.1); BUN/Creatinine Ratio 26.53; Calc. Creatinine Clearance 61 mL/min (70-130); Carbon Dioxide 28 mmol/L (23-31); Chloride 111 mmol/L (98-107); Estimated GFR-MDRD Greater than 90; Glucose 103 mg/dL (83-110); Magnesium 1.4 mg/dL (1.6-2.6); Phosphorus 4.2 mg/dL (2.3-4.7); Sodium 150 mmol/L (136-145)
[2018-06-23 06:09] LABS: Potassium 2.4 mmol/L (3.5-5.1)
[2018-06-23] MEDS ORDERED: Potassium Chloride 20 MEQ TAB PO SCH (06:15)
[2018-06-23] MEDS ORDERED: Potassium Chloride 10 MEQ in Premix Bag 1 BAG IVPB SCH (06:15)
[2018-06-23] MEDS: Levothyroxine Sodium 100 MCG TAB PO SCH (06:42)
[2018-06-23] MEDS ORDERED: Magnesium Sulfate 4 GM in Sodium Chloride 0.9% 250 ML 250 ML IVPB SCH (06:45)
[2018-06-23] MEDS ORDERED: Potassium Chloride 40 MEQ in Dextrose 5% in Water 1,000 ML IV SCH (06:45)
[2018-06-23] MEDS: K-Phos Neutral 250 MG TAB PO SCH ×3 (08:30→18:21)
[2018-06-23] MEDS: Midodrine HCl 5 MG TAB PO SCH ×3 (08:30→21:16)
[2018-06-23] MEDS: Aspirin 81 mg Enteric Coated Tablet PO SCH (08:30)
[2018-06-23] MEDS: Megestrol Acetate 40 MG TAB PO SCH ×2 (08:30→22:31)
[2018-06-23] MEDS: predniSONE 20 MG TAB PO SCH (08:30)
[2018-06-23] MEDS: Doxycycline 100 MG CAP PO SCH ×2 (08:30→21:16)
[2018-06-23] MEDS: Apixaban 2.5 MG TAB PO SCH ×2 (08:30→21:16)
[2018-06-23] MEDS: pyridOXINE 50 MG (B6) TAB PO SCH (08:30)
[2018-06-23] MEDS: Cyanocobalamin (Vitamin B-12) 1,000 MCG TAB PO SCH (08:30)
[2018-06-23] MEDS: Multivit, Therapeutic 1 TAB PO SCH (08:30)
[2018-06-23] MEDS: Folic Acid 1 MG TAB PO SCH (08:31)
[2018-06-23] MEDS: Senokot S 8.6-50 MG TAB PO SCH ×2 (08:31→21:17)
[2018-06-23] MEDS: Carvedilol 3.125 MG TAB PO SCH ×2 (08:31→21:16)
[2018-06-23] MEDS: Nystatin 500,000 UNITS/5 ML UDCUP SSW SCH ×4 (08:31→21:16)
--- NOTE | 2018-06-23 12:52 | PDOC.PN ---
- Subjective Encounter Start Date: 06/23/18 Encounter Start Time: 09:10 Patient seen and examined for Sepsis. Feels the same. Denies any pain. No new complaints. No overnight events - Objective Resuscitation Status - Order Detail: 06/19/18 12:29 Resuscitation Status Routine Resuscitation Status: DNAR: NO Resuscitation Discussed with: confirmed with patient MAR Reviewed: Yes Vital Signs & Weight: Vital Signs (12 hours) Temp Pulse Resp BP Pulse Ox 06/23/18 11:20 97.5 F L 71 17 113/56 L 97 06/23/18 07:39 98.8 F 82 20 101/63 95 06/23/18 05:00 97.9 F 84 18 118/61 96 Weight Admit Weight 87 lb 2 oz Weight 90 lb 4.8 oz I&O: 06/22/18 06/23/18 06/24/18 06:59 06:59 06:59 Intake Total 300 300 Output Total 750 525 Balance -450 -225 Result Diagrams: 06/23/18 04:43 06/23/18 04:43 Additional Labs: Accuchecks 06/23/18 06/23/18 06/22/18 10:52 06:33 20:51 POC Glucose 138 H 98 116 H 06/22/18 16:51 POC Glucose 98 EKG Reviewed by me: Yes (Tele SR) Phys Exam - Physical Examination Constitutional: NAD Respiratory: no wheezing Bibasilar rales with rhonchi Cardiovascular: RRR, no rub Gastrointestinal: soft, non-tender, positive bowel sounds Neurological: moves all 4 limbs Dx/Plan - Plan IMPRESSION: 1. Sepsis with acute organ dysfunction secondary to aspiration pneumonia/RSV bronchitis/Klebsiella urinary tract infection. 2. Left-sided pulmonary embolism, small. 3. Catheter associated urinary tract infection/chronic urinary retention with indwelling Padron catheter. 4. Swallow dysfunction. 5. Multiple electrolyte abnormalities including hypokalemia, hypophosphatemia, and hypomagnesemia. 6. Chronically-elevated troponin. 7. Severe protein-calorie malnutrition. 8. Chronic anemia. 9. Myopathy of unknown type, on chronic steroids. 10. Elevated inflammatory markers. 11. Hypothyroidism. 12. History of cardiac arrest during an EGD. 13. Peptic ulcer disease. We will continue PPIs. 14. Dyslipidemia. 15. Atrophic vaginitis, on estrogen. 16. Physical deconditioning. 17. Decubitus ulcer over the sacrum, stage II, present on admission. 18. Diabetes mellitus type 2. We will continue sliding scale. 19. Chronic diastolic heart failure, appears to be compensated. 20. Hypothyroidism. on levothyroxine. 21. Oral thrush. on Nystatin SSW, PLAN: Continue IV Zosyn along with doxycycline. on Anticoagulation. Replace electrolytes Cont PT/OT DC planning in 1-2 days if stable Review of Systems - Review of Systems Respiratory: negative: Cough, Dry, Shortness of Breath, Hemoptysis, SOB with Excertion, Pleuritic Pain, Sputum, Wheezing Cardiovascular: negative: chest pain, palpitations, orthopnea, paroxysmal nocturnal dyspnea, edema, light headedness, other - Medications/Allergies Allergies/Adverse Reactions: Allergies Allergy/AdvReac Type Severity Reaction Status Date / Time latex Allergy Mild Verified 04/22/18 22:52 Medications: Current Medications Acetaminophen (Tylenol) 650 mg PO Q4H PRN PRN Reason: Headache/Fever/Mild Pain (1-3) Apixaban (Eliquis) 2.5 mg PO BID [facility] Last Admin: 06/23/18 08:30 Dose: 2.5 mg Aspirin (Ecotrin) 81 mg PO DAILY [facility] Last Admin: 06/23/18 08:30 Dose: 81 mg Bisacodyl (Dulcolax) 10 mg PO DAILYPRN PRN PRN Reason: Constipation Calcium Carbonate (Tums) 1,000 mg PO Q4H PRN PRN Reason: Heartburn or Indigestion Carvedilol (Coreg) 3.125 mg PO BID [facility] Last Admin: 06/23/18 08:31 Dose: 3.125 mg Cyanocobalamin (Vitamin B-12) 1,000 mcg PO DAILY [facility] Last Admin: 06/23/18 08:30 Dose: 1,000 mcg Dextrose/Water (Dextrose 50%) 25 gm SLOW IVP PRN PRN PRN Reason: Hypoglycemia Doxycycline Hyclate (Vibramycin) 100 mg PO BID [facility] Last Admin: 06/23/18 08:30 Dose: 100 mg Estrogens Conjugated (Premarin Cream) 1 gm VAG HS [facility] Last Admin: 06/22/18 21:50 Dose: 1 gm Folic Acid (Folvite) 1 mg PO DAILY [facility] Last Admin: 06/23/18 08:31 Dose: 1 mg Glucagon (Glucagon) 1 mg IM PRN PRN PRN Reason: Hypoglycemia Piperacillin Sod/Tazobactam (Sod 3.375 gm/ Sodium Chloride) 100 mls @ 200 mls/ hr IVPB 0300,0900,1500,2100 [facility] Last Admin: 06/23/18 08:30 Dose: 100 mls Dextrose/Water (D5w) 1,000 mls @ 0 mls/hr IV .Q0M PRN PRN Reason: Hypoglycemia Potassium Chloride 40 meq/ (Dextrose/Water) 1,020 mls @ 75 mls/hr IV .[id number] [facility] Last Admin: 06/23/18 07:58 Dose: 1,020 mls Insulin Human Regular (Humulin R) 0 units SC .MILD SLIDING SCALE PRN PRN Reason: Mild Correctional Scale Insulin Human Regular (Humulin R) 0 units SC .BEDTIME SLIDING SC PRN PRN Reason: Bedtime Correctional Scale Levothyroxine Sodium (Synthroid) 100 mcg PO 0600 [facility] Last Admin: 06/23/18 06:42 Dose: 100 mcg Megestrol Acetate (Megace) 40 mg PO BID [facility] Last Admin: 06/23/18 08:30 Dose: 40 mg Midodrine (Proamatine) 5 mg PO TID [facility] Last Admin: 06/23/18 08:30 Dose: 5 mg Miscellaneous Medication (Phos-Nak) 2 pkt PER TUBE BID-WM [facility] Last Admin: 06/23/18 08:31 Dose: 2 pkt Miscellaneous Medication (Pharmacy To Dose) 1 each IVPB DAILYPRN PRN PRN Reason: LABS Multivitamins (Theragran) 1 tab PO DAILY [facility] Last Admin: 06/23/18 08:30 Dose: 1 tab Nitroglycerin (Nitrostat) 0.4 mg PO Q5MIN PRN PRN Reason: Chest Pain Nystatin (Mycostatin) 500,000 units SSW QID [facility] Last Admin: 06/23/18 12:42 Dose: 500,000 units Ondansetron HCl (Zofran Odt) 4 mg PO Q6H PRN PRN Reason: Nausea/Vomiting Ondansetron HCl (Zofran) 4 mg IVP Q6H PRN PRN Reason: Nausea/Vomiting Pantoprazole Sodium (Protonix) 40 mg PO DAILY [facility] Last Admin: 06/23/18 08:31 Dose: 40 mg Phosphorus (Kphos Neutral) 500 mg PO TID-WM [facility] Last Admin: 06/23/18 12:42 Dose: 500 mg Prednisone (Prednisone) 20 mg PO DAILY [facility] Last Admin: 06/23/18 08:30 Dose: 20 mg Pyridoxine HCl (Vitamin B 6) 50 mg PO DAILY [facility] Last Admin: 06/23/18 08:30 Dose: 50 mg Senna/Docusate Sodium (Senokot S) 1 tab PO BID [facility] Last Admin: 06/23/18 08:31 Dose: Not Given Sertraline HCl (Zoloft) 50 mg PO DAILY [facility] Last Admin: 06/23/18 08:30 Dose: 50 mg Sodium Chloride (Flush - Normal Saline) 10 ml IVF PRN PRN PRN Reason: Saline Flush Last Admin: 06/22/18 21:51 Dose: 10 ml Sodium Chloride (Flush - Normal Saline) 10 ml IVF PRN PRN PRN Reason: Saline Flush Thiamine HCl (Thiamine) 100 mg PO DAILY [facility] Last Admin: 06/23/18 08:31 Dose: 100 mg Tramadol HCl (Ultram) 50 mg PO Q4H PRN PRN Reason: Moderate Pain (4-6)
--- NOTE | 2018-06-23 13:03 | PRG ---
DATE OF SERVICE: SUBJECTIVE: This morning, she still appears somewhat encephalopathic. I am told she is not going to have a PEG placed in, no verbal communication. OBJECTIVE: VITAL SIGNS: Sats are 97% on 2 L, respirations 17, temperature 97, and blood pressure 130/56. CHEST: Decreased breath sounds without any wheezing. CARDIAC: Normal S1 and S2. No gallops. ABDOMEN: No masses. IMPRESSION: 1. Status post cardiac arrest. 2. Encephalopathy. 3. Malnutrition. 4. Advanced age. She is a DNR, comfort care. DISPOSITION: As per Cardiology. Job ID: [id number]
[2018-06-23] MEDS: Potassium Chloride 40 MEQ in Dextrose 5% in Water 1,000 ML IV SCH (15:44)
[2018-06-23] MEDS: Estrogens, Conjugated 30 GM TUBE VAG SCH (21:16)
[2018-06-24] MEDS: Potassium Chloride 40 MEQ in Dextrose 5% in Water 1,000 ML IV SCH ×2 (02:53→15:41)
[2018-06-24] MEDS: Piperacillin/Tazobactam 3.375 GM in Sodium Chloride 0.9% 100 ML IVPB SCH ×4 (02:53→20:30)
[2018-06-24 05:23] LABS: #Eosinphils 0.1 thou/uL (0.0-0.7); #Lymphocytes 1.2 thou/uL (1.20-3.40); #Monocytes 0.4 thou/uL (0.11-0.59); #Neutrophils 9.9 thou/uL (1.40-6.50); %Basophils 0.3 % (0.0-1.0); %Eosinophils 0.8 % (0.0-10.0); %Lymphocytes 10.3 % (21.0-51.0); %Monocytes 3.3 % (0.0-10.0); %Neutrophils 85.2 % (42.0-75.0); Mean Corpuscular HGB CONC 33.4 g/dL (32.0-36.0); Mean Corpuscular Hemoglobin 30.7 pg (27.0-31.0); Mean Corpuscular Volume 91.7 fL (78.0-98.0); Mean Platelet Volume 7.5 fL (7.4-10.4); Platelet Count 160 thou/uL (130-400); RBC Distribution Width 14.1 % (11.5-14.5); Red Blood Cell (RBC) Count 3.26 mill/uL (4.20-5.40); White Blood Cell (WBC) Count 11.6 thou/uL (4.8-10.8)
[2018-06-24] MEDS: Levothyroxine Sodium 100 MCG TAB PO SCH (06:06)
[2018-06-24 07:46] LABS: Anion Gap 8 mmol/L (10-20); BUN (Urea Nitrogen) 9 mg/dL (9.8-20.1); BUN/Creatinine Ratio 19.15; Calc. Creatinine Clearance 62 mL/min (70-130); Calcium 8.1 mg/dL (7.8-10.44); Carbon Dioxide 31 mmol/L (23-31); Chloride 107 mmol/L (98-107); Estimated GFR-MDRD Greater than 90; Glucose 116 mg/dL (83-110); Magnesium 1.9 mg/dL (1.6-2.6); Phosphorus 3.1 mg/dL (2.3-4.7); Potassium 2.5 mmol/L (3.5-5.1); Sodium 143 mmol/L (136-145)
[2018-06-24] MEDS: Apixaban 2.5 MG TAB PO SCH ×2 (09:10→20:27)
[2018-06-24] MEDS: Doxycycline 100 MG CAP PO SCH ×2 (09:10→20:27)
[2018-06-24] MEDS: K-Phos Neutral 250 MG TAB PO SCH ×3 (09:12→17:43)
[2018-06-24] MEDS: Carvedilol 3.125 MG TAB PO SCH ×2 (09:13→20:27)
[2018-06-24] MEDS: pyridOXINE 50 MG (B6) TAB PO SCH (09:13)
[2018-06-24] MEDS: predniSONE 20 MG TAB PO SCH (09:13)
[2018-06-24] MEDS: Multivit, Therapeutic 1 TAB PO SCH (09:13)
[2018-06-24] MEDS: Midodrine HCl 5 MG TAB PO SCH ×3 (09:13→20:29)
[2018-06-24] MEDS: Folic Acid 1 MG TAB PO SCH (09:13)
[2018-06-24] MEDS: Aspirin 81 mg Enteric Coated Tablet PO SCH (09:13)
[2018-06-24] MEDS: Nystatin 500,000 UNITS/5 ML UDCUP SSW SCH ×5 (09:13→20:30)
[2018-06-24] MEDS: Senokot S 8.6-50 MG TAB PO SCH ×3 (09:13→21:08)
[2018-06-24] MEDS: Cyanocobalamin (Vitamin B-12) 1,000 MCG TAB PO SCH (09:13)
[2018-06-24] MEDS: Megestrol Acetate 40 MG TAB PO SCH ×2 (09:17→21:08)
--- NOTE | 2018-06-24 10:09 | PQF ---
CLINICAL DOCUMENTATION IMPROVEMENT CLARIFICATION FORM: ICD-10 Updated PLEASE DO AN ADDENDUM TO THE PROGRESS NOTE WITH ANY DOCUMENTATION UPDATES OR ADDITIONS AND CARRY THROUGH TO DC SUMMARY. THANK YOU. DATE: 06/24/18 ATTN: Dr. Lawrence Please exercise your independent, professional judgment in responding to the clarification form. Clinical indicators are provided on the bottom of this form for your review Please check appropriate box(s): Conflicting documentation was noted in the Medical Record, please clarify if patient is being treated/monitored for: [ x ] Chronically - elevated troponin. [ ] [id number] myocardial infarction, from demand. [ ] Other diagnosis [ ] Unable to determine In addition, please specify: Present on Admission (POA): [ x ] Yes [ ] No [ ] Unable to determine For continuity of documentation, please document condition throughout progress notes and discharge summary. Thank You. CLINICAL INDICATORS - SIGNS / SYMPTOMS/ LABS H&P 06/19: HER TROPONIN WAS 0.464 HER TROPONIN LAST ADMISSION WAS 0.6 CHRONICALLY-ELEVATED TROPONINS CARDIOLOGY CONSULT 06/21: CHRONICALLY ELEVATED TROPONIN Is. OVER THE LAST 3 OR 4 MONTHS , ALL OF HER TROPONIN Is HAVE BEEN ABNORMAL. PN 06/21 (IRAIDA): [id number] MYOCARDIAL INFARCTION, FROM DEMAND RISKS: H&P 06/19: 82 yrs old. Discharged from this facility approximately 2 weeks ago. Her troponins were elevated. She had syncope and was evaluated by Cardiology. Sepsis with acute organ dysfunction secondary to pneumonia, suspected aspiration. L pulmonary embolism. Catheter-associated UTI. Chronically elevated troponins. Cardiology pn 06/21: Normal Cardiolite 04/2018. TREATMENT ADMIT TELEMETRY: 06/19 CARDIOLOGY CONSULT Thank you, Elza (This form is maintained as a part of the permanent medical record) 2014 [employer]. All Rights Reserved Elza Hodges RN, BSN [email or web address] Office: [phone] [facility]
[2018-06-24] MEDS: Potassium Chloride 40 MEQ in Sodium Chloride 0.9% 250 ML 250 ML IVPB SCH ×2 (10:52→17:43)
[2018-06-24 14:32] VITALS: BMI 18.2
--- NOTE | 2018-06-24 18:45 | PRG ---
DATE OF SERVICE: 06/24/2018 SERVICE: Pulmonary Medicine. INTERVAL HISTORY: The patient is doing okay from respiratory standpoint. Breathing comfortably. She has better strength today. She denies any fevers, chills, nausea, or vomiting. Otherwise, there has been no interval change to her condition. They decided they did not want the PEG tube. That being said, they are planning on going home with comfort measures only. I do think that this decision defies logic to some extent. The reason for her weakness is her lack of nutrition because she has oropharyngeal dysphagia. As such, being aggressive and going home without a PEG tube is likely destined to not be successful. PHYSICAL EXAMINATION: VITAL SIGNS: Afebrile, pulse 71, blood pressure 116/57, respirations 20, and saturation 99% on 2 L nasal cannula. GENERAL: The patient is awake and alert, in no apparent distress. LUNGS: Decent air entry. Rhonchi are present. No prolonged expiratory phase is present. There are some dependent crackles. HEART: Normal rate, regular. ABDOMEN: Soft, nontender, and nondistended. Bowel sounds are positive. MUSCULOSKELETAL: No cyanosis or clubbing. There is trace to 1+ pitting in the bilateral lower extremities and at the sacrum. GENITOURINARY: Padron catheter in place. NEUROLOGIC: Grossly nonfocal. LABORATORY DATA: WBC 11.6, hemoglobin 10.0, and platelets 160,000. Potassium 2.5. Basic metabolic profile is otherwise unremarkable. Magnesium and phosphorous fall within the normal limits. Albumin is 2.0. Respiratory virus panel is unremarkable. Urine culture is growing Klebsiella pneumoniae. Blood cultures x2 are negative. ASSESSMENT: 1. Acute hypoxic respiratory failure, improving. 2. Healthcare-associated pneumonia, secondary to aspiration and/or respiratory syncytial virus B. 3. Severe sepsis, resolved. 4. [id number] myocardial infarction, secondary to demand. 5. Myopathy with progressive deconditioning/weakness. 6. Oropharyngeal dysphagia. 7. Acute pulmonary embolism, small. 8. Severe protein-calorie malnutrition. DISCUSSION AND PLAN: The decision to go home and still be aggressive despite the fact that we are not fixing the underlying issue is destined for failure. I think our decision would be simple. We either put a PEG tube in and continue aggressive maneuvers or transition over to comfort care in the outpatient setting. At this point, she has no further requirements for inpatient Pulmonary Critical Care opinion, and I will sign off. Please call with additional questions or concerns moving forward. Job ID: [id number]
[2018-06-24] MEDS: Estrogens, Conjugated 30 GM TUBE VAG SCH (20:30)
[2018-06-24] MEDS: traMADol HCl 50 MG TAB PO PRN (20:31)
--- NOTE | 2018-06-24 20:34 | PDOC.PN ---
- Subjective Encounter Start Date: 06/24/18 Encounter Start Time: 10:15 - Objective Resuscitation Status - Order Detail: 06/19/18 12:29 Resuscitation Status Routine Resuscitation Status: DNAR: NO Resuscitation Discussed with: confirmed with patient MAR Reviewed: Yes Vital Signs & Weight: Vital Signs (12 hours) Temp Pulse Resp BP Pulse Ox 06/24/18 19:20 98.0 F 90 18 128/62 92 L 06/24/18 16:00 97.9 F 71 20 116/57 L 99 06/24/18 12:25 97.3 F L 68 20 119/61 96 Weight Admit Weight 87 lb 2 oz Weight 90 lb 4.8 oz I&O: 06/23/18 06/24/18 06/25/18 06:59 06:59 06:59 Intake Total 300 Output Total 525 Balance -225 Result Diagrams: 06/25/18 05:03 06/25/18 05:03 Additional Labs: Accuchecks 06/24/18 06/24/18 06/24/18 16:05 10:53 05:30 POC Glucose 89 107 124 H 06/23/18 20:21 POC Glucose 124 H EKG Reviewed by me: Yes (Tele SR) Phys Exam - Physical Examination Constitutional: NAD Respiratory: no wheezing, no rhonchi Cardiovascular: RRR, no rub Gastrointestinal: soft, non-tender, positive bowel sounds Musculoskeletal: no edema Neurological: moves all 4 limbs Dx/Plan - Plan IMPRESSION: 1. Sepsis with acute organ dysfunction secondary to aspiration pneumonia/RSV bronchitis/Klebsiella urinary tract infection. 2. Left-sided pulmonary embolism, small. 3. Catheter associated urinary tract infection/chronic urinary retention with indwelling Og catheter. 4. Swallow dysfunction. 5. Multiple electrolyte abnormalities including hypokalemia, hypophosphatemia, and hypomagnesemia. 6. Chronically-elevated troponin. 7. Severe protein-calorie malnutrition. 8. Chronic anemia. 9. Myopathy of unknown type, on chronic steroids. 10. Elevated inflammatory markers. 11. Hypothyroidism. 12. History of cardiac arrest during an EGD. 13. Peptic ulcer disease. We will continue PPIs. 14. Dyslipidemia. 15. Atrophic vaginitis, on estrogen. 16. Physical deconditioning. 17. Decubitus ulcer over the sacrum, stage II, present on admission. 18. Diabetes mellitus type 2. We will continue sliding scale. 19. Chronic diastolic heart failure, appears to be compensated. 20. Hypothyroidism. on levothyroxine. 21. Oral thrush. on Nystatin SSW, PLAN: DC IV Zosyn Start Augmentin Replace Potassium AM labs DC planning in AM to [place] if stable Microbiology 06/19/18 15:30 Nasopharyngeal swab Respiratory Virus Panel (PCR) - Final 06/19/18 08:52 Venous blood - Right Arm Blood Culture - Preliminary NO GROWTH AT 48 HOURS 06/19/18 08:02 Venous blood - Right Hand Blood Culture - Preliminary NO GROWTH AT 48 HOURS 06/19/18 07:55 Urine og catheter Urine Culture - Preliminary Klebsiella pneumoniae ssp pneu Laboratory Tests 06/23/18 06/24/18 06/25/18 04:43 07:06 05:03 Sodium 143 148 H Potassium 2.5 L* 3.6 Chloride 107 112 H Magnesium 1.4 L Review of Systems - Review of Systems Respiratory: negative: Cough, Dry, Shortness of Breath, Hemoptysis, SOB with Excertion, Pleuritic Pain, Sputum, Wheezing Cardiovascular: negative: chest pain, palpitations, orthopnea, paroxysmal nocturnal dyspnea, edema, light headedness, other - Medications/Allergies Allergies/Adverse Reactions: Allergies Allergy/AdvReac Type Severity Reaction Status Date / Time latex Allergy Mild Verified 04/22/18 22:52 Medications: Current Medications Acetaminophen (Tylenol) 650 mg PO Q4H PRN PRN Reason: Headache/Fever/Mild Pain (1-3) Apixaban (Eliquis) 2.5 mg PO BID [facility] Last Admin: 06/24/18 09:10 Dose: 2.5 mg Aspirin (Ecotrin) 81 mg PO DAILY [facility] Last Admin: 06/24/18 09:13 Dose: 81 mg Bisacodyl (Dulcolax) 10 mg PO DAILYPRN PRN PRN Reason: Constipation Calcium Carbonate (Tums) 1,000 mg PO Q4H PRN PRN Reason: Heartburn or Indigestion Carvedilol (Coreg) 3.125 mg PO BID [facility] Last Admin: 06/24/18 09:13 Dose: 3.125 mg Cyanocobalamin (Vitamin B-12) 1,000 mcg PO DAILY [facility] Last Admin: 06/24/18 09:13 Dose: 1,000 mcg Dextrose/Water (Dextrose 50%) 25 gm SLOW IVP PRN PRN PRN Reason: Hypoglycemia Doxycycline Hyclate (Vibramycin) 100 mg PO BID [facility] Last Admin: 06/24/18 09:10 Dose: 100 mg Estrogens Conjugated (Premarin Cream) 1 gm VAG HS [facility] Last Admin: 06/23/18 21:16 Dose: 1 gm Folic Acid (Folvite) 1 mg PO DAILY [facility] Last Admin: 06/24/18 09:13 Dose: 1 mg Glucagon (Glucagon) 1 mg IM PRN PRN PRN Reason: Hypoglycemia Piperacillin Sod/Tazobactam (Sod 3.375 gm/ Sodium Chloride) 100 mls @ 200 mls/ hr IVPB 0300,0900,1500,2100 [facility] Last Admin: 06/24/18 15:36 Dose: 100 mls Dextrose/Water (D5w) 1,000 mls @ 0 mls/hr IV .Q0M PRN PRN Reason: Hypoglycemia Potassium Chloride 40 meq/ (Dextrose/Water) 1,020 mls @ 40 mls/hr IV .Q24H [facility] Last Admin: 06/24/18 15:41 Dose: Not Given Insulin Human Regular (Humulin R) 0 units SC .MILD SLIDING SCALE PRN PRN Reason: Mild Correctional Scale Insulin Human Regular (Humulin R) 0 units SC .BEDTIME SLIDING SC PRN PRN Reason: Bedtime Correctional Scale Levothyroxine Sodium (Synthroid) 100 mcg PO 0600 [facility] Last Admin: 06/24/18 06:06 Dose: 100 mcg Megestrol Acetate (Megace) 40 mg PO BID [facility] Last Admin: 06/24/18 09:17 Dose: 40 mg Midodrine (Proamatine) 5 mg PO TID [facility] Last Admin: 06/24/18 15:37 Dose: 5 mg Miscellaneous Medication (Phos-Nak) 2 pkt PER TUBE BID-WM [facility] Last Admin: 06/24/18 17:44 Dose: Not Given Miscellaneous Medication (Pharmacy To Dose) 1 each IVPB DAILYPRN PRN PRN Reason: LABS Multivitamins (Theragran) 1 tab PO DAILY [facility] Last Admin: 06/24/18 09:13 Dose: 1 tab Nitroglycerin (Nitrostat) 0.4 mg PO Q5MIN PRN PRN Reason: Chest Pain Nystatin (Mycostatin) 500,000 units SSW QID [facility] Last Admin: 06/24/18 17:44 Dose: Not Given Ondansetron HCl (Zofran Odt) 4 mg PO Q6H PRN PRN Reason: Nausea/Vomiting Ondansetron HCl (Zofran) 4 mg IVP Q6H PRN PRN Reason: Nausea/Vomiting Pantoprazole Sodium (Protonix) 40 mg PO DAILY [facility] Last Admin: 06/24/18 09:13 Dose: 40 mg Phosphorus (Kphos Neutral) 500 mg PO TID-WM [facility] Last Admin: 06/24/18 17:43 Dose: 500 mg Prednisone (Prednisone) 20 mg PO DAILY [facility] Last Admin: 06/24/18 09:13 Dose: 20 mg Pyridoxine HCl (Vitamin B 6) 50 mg PO DAILY [facility] Last Admin: 06/24/18 09:13 Dose: 50 mg Senna/Docusate Sodium (Senokot S) 1 tab PO BID [facility] Last Admin: 06/24/18 09:20 Dose: Not Given Sertraline HCl (Zoloft) 50 mg PO DAILY [facility] Last Admin: 06/24/18 09:12 Dose: 50 mg Sodium Chloride (Flush - Normal Saline) 10 ml IVF PRN PRN PRN Reason: Saline Flush Last Admin: 06/22/18 21:51 Dose: 10 ml Sodium Chloride (Flush - Normal Saline) 10 ml IVF PRN PRN PRN Reason: Saline Flush Thiamine HCl (Thiamine) 100 mg PO DAILY [facility] Last Admin: 06/24/18 09:13 Dose: 100 mg Tramadol HCl (Ultram) 50 mg PO Q4H PRN PRN Reason: Moderate Pain (4-6)
[2018-06-24] MEDS: Amoxicillin/Potassium Clav 400 mg/5 ml Oral Suspension PO SCH (21:08)
[2018-06-25] MEDS: Levothyroxine Sodium 100 MCG TAB PO SCH (05:18)
[2018-06-25 05:21] LABS: #Monocytes 0.4 thou/uL (0.11-0.59); #Neutrophils 9.5 thou/uL (1.40-6.50); %Basophils 0.2 % (0.0-1.0); %Eosinophils 0.1 % (0.0-10.0); %Lymphocytes 8.9 % (21.0-51.0); %Monocytes 3.4 % (0.0-10.0); %Neutrophils 87.5 % (42.0-75.0); Hemoglobin 9.1 g/dL (12.0-16.0); Mean Corpuscular HGB CONC 33.7 g/dL (32.0-36.0); Mean Corpuscular Hemoglobin 31.3 pg (27.0-31.0); Mean Platelet Volume 7.2 fL (7.4-10.4); Platelet Count 221 thou/uL (130-400); RBC Distribution Width 14.2 % (11.5-14.5); Red Blood Cell (RBC) Count 2.91 mill/uL (4.20-5.40); White Blood Cell (WBC) Count 10.9 thou/uL (4.8-10.8)
[2018-06-25 05:47] LABS: Anion Gap 10 mmol/L (10-20); BUN (Urea Nitrogen) 11 mg/dL (9.8-20.1); BUN/Creatinine Ratio 22.92; Calc. Creatinine Clearance 60 mL/min (70-130); Calcium 8.4 mg/dL (7.8-10.44); Carbon Dioxide 30 mmol/L (23-31); Chloride 112 mmol/L (98-107); Estimated GFR-MDRD Greater than 90; Glucose 86 mg/dL (83-110); Magnesium 1.6 mg/dL (1.6-2.6); Phosphorus 4.2 mg/dL (2.3-4.7); Potassium 3.6 mmol/L (3.5-5.1); Sodium 148 mmol/L (136-145)
[2018-06-25] MEDS: pyridOXINE 50 MG (B6) TAB PO SCH (08:44)
[2018-06-25] MEDS: K-Phos Neutral 250 MG TAB PO SCH ×3 (08:44→17:06)
[2018-06-25] MEDS: Apixaban 2.5 MG TAB PO SCH ×2 (08:44→21:52)
[2018-06-25] MEDS: Midodrine HCl 5 MG TAB PO SCH ×3 (08:44→21:51)
[2018-06-25] MEDS: Multivit, Therapeutic 1 TAB PO SCH (08:44)
[2018-06-25] MEDS: Doxycycline 100 MG CAP PO SCH ×2 (08:44→21:51)
[2018-06-25] MEDS: Senokot S 8.6-50 MG TAB PO SCH ×2 (08:44→21:51)
[2018-06-25] MEDS: Aspirin 81 mg Enteric Coated Tablet PO SCH (08:44)
[2018-06-25] MEDS: Cyanocobalamin (Vitamin B-12) 1,000 MCG TAB PO SCH (08:44)
[2018-06-25] MEDS: Folic Acid 1 MG TAB PO SCH (08:44)
[2018-06-25] MEDS: Nystatin 500,000 UNITS/5 ML UDCUP SSW SCH ×5 (08:44→21:51)
[2018-06-25] MEDS: Amoxicillin/Potassium Clav 400 mg/5 ml Oral Suspension PO SCH ×3 (08:45→21:51)
[2018-06-25] MEDS: Carvedilol 3.125 MG TAB PO SCH ×2 (08:46→21:51)
[2018-06-25] MEDS: predniSONE 20 MG TAB PO SCH (08:46)
[2018-06-25] MEDS: Megestrol Acetate 40 MG TAB PO SCH ×2 (08:54→21:56)
[2018-06-25] MEDS ORDERED: Magnesium 2 GM/50 ML 2 GM in Premix Bag 1 BAG IVPB SCH (11:00)
--- NOTE | 2018-06-25 12:02 | EKG ---
Test Reason : Blood Pressure : / mmHG Vent. Rate : 085 BPM Atrial Rate : 085 BPM P-R Int : 168 ms QRS Dur : 110 ms QT Int : 392 ms P-R-T Axes : 055 -73 065 degrees QTc Int : 466 ms Normal sinus rhythm Left anterior fascicular block Septal infarct , age undetermined Abnormal ECG Confirmed by DARCY VELASCO D.O. ([id number]), metropolitan editor STEVE CHAN ([id number]) on 06/25/2018 12:02:16 PM Referred By: Confirmed By:DARCY VELASCO D.O.
[2018-06-25] MEDS: Potassium Chloride 40 MEQ in Dextrose 5% in Water 1,000 ML IV SCH (12:31)
[2018-06-25] MEDS: traMADol HCl 50 MG TAB PO PRN (21:49)
[2018-06-25] MEDS: Estrogens, Conjugated 30 GM TUBE VAG SCH (21:52)
[2018-06-26] MEDS: Levothyroxine Sodium 100 MCG TAB PO SCH (05:54)
[2018-06-26] MEDS: Senokot S 8.6-50 MG TAB PO SCH (09:28)
[2018-06-26] MEDS: Folic Acid 1 MG TAB PO SCH (09:28)
[2018-06-26] MEDS: Multivit, Therapeutic 1 TAB PO SCH (09:29)
[2018-06-26] MEDS: K-Phos Neutral 250 MG TAB PO SCH ×3 (09:29→16:07)
[2018-06-26] MEDS: Carvedilol 3.125 MG TAB PO SCH (09:29)
[2018-06-26] MEDS: Doxycycline 100 MG CAP PO SCH (09:29)
[2018-06-26] MEDS: Cyanocobalamin (Vitamin B-12) 1,000 MCG TAB PO SCH (09:29)
[2018-06-26] MEDS: pyridOXINE 50 MG (B6) TAB PO SCH (09:30)
[2018-06-26] MEDS: Megestrol Acetate 40 MG TAB PO SCH (09:30)
[2018-06-26] MEDS: predniSONE 20 MG TAB PO SCH (09:30)
[2018-06-26] MEDS: Midodrine HCl 5 MG TAB PO SCH ×2 (09:30→15:40)
[2018-06-26] MEDS: Nystatin 500,000 UNITS/5 ML UDCUP SSW SCH ×3 (09:30→16:06)
[2018-06-26] MEDS: Apixaban 2.5 MG TAB PO SCH (09:30)
[2018-06-26] MEDS: Aspirin 81 mg Enteric Coated Tablet PO SCH (09:30)
[2018-06-26] MEDS: Amoxicillin/Potassium Clav 400 mg/5 ml Oral Suspension PO SCH ×2 (09:33→15:39)
--- NOTE | 2018-06-26 10:59 | PDOC.PN ---
- Subjective Encounter Start Date: 06/25/18 Encounter Start Time: 13:00 Patient seen and examined on 06/25. Feels gen weak. Poor PO intake. No new complaints. No overnight events - Objective Resuscitation Status - Order Detail: 06/19/18 12:29 Resuscitation Status Routine Resuscitation Status: DNAR: NO Resuscitation Discussed with: confirmed with patient MAR Reviewed: Yes Vital Signs & Weight: Vital Signs (12 hours) Temp Pulse Resp BP Pulse Ox 06/26/18 08:30 96 06/26/18 07:39 97.7 F 67 20 131/67 97 06/26/18 03:58 97.9 F 65 18 130/70 96 06/26/18 00:16 78 130/100 H Weight Admit Weight 87 lb 2 oz Weight 90 lb 4.8 oz I&O: 06/25/18 06/26/18 06/27/18 06:59 06:59 06:59 Intake Total 510 1321 Output Total 1275 850 Balance -765 471 Result Diagrams: 06/25/18 05:03 06/25/18 05:03 Additional Labs: Accuchecks 06/26/18 06/25/18 06/25/18 05:45 20:50 17:15 POC Glucose 93 115 H 113 H 06/25/18 10:36 POC Glucose 139 H EKG Reviewed by me: Yes (Tele SR) Phys Exam - Physical Examination Constitutional: NAD Respiratory: no wheezing, no rhonchi Rales at B/L bases Cardiovascular: RRR, no rub Gastrointestinal: soft, non-tender, positive bowel sounds Neurological: non-focal, moves all 4 limbs Dx/Plan - Plan IMPRESSION: 1. Sepsis with acute organ dysfunction secondary to aspiration pneumonia/RSV B bronchitis/Klebsiella urinary tract infection. 2. Left-sided pulmonary embolism - on Eliquis 3. Catheter associated urinary tract infection/chronic urinary retention with indwelling Padron catheter. 4. Swallow dysfunction. Declining PEG. 5. Multiple electrolyte abnormalities including hypokalemia, hypophosphatemia, and hypomagnesemia. 6. Chronically-elevated troponin due to demand ischemia. 7. Severe protein-calorie malnutrition. 8. Chronic anemia. 9. Myopathy of unknown type, on chronic steroids. 10. Elevated inflammatory markers. 11. Hypothyroidism. 12. History of cardiac arrest during an EGD in the past 13. Peptic ulcer disease - on PPIs. 14. Dyslipidemia. 15. Atrophic vaginitis, on estrogen. 16. Physical deconditioning. 17. Decubitus ulcer over the sacrum, stage II, present on admission. 18. Diabetes mellitus type 2 - on sliding scale. 19. Chronic diastolic heart failure - compensated. 20. Hypothyroidism - on levothyroxine. 21. Oral thrush. on Nystatin SSW PLAN: Cont Augmentin Patient has very poor PO intake. Very high risk of dehydration and FATOU. Cont IVF @ 40 due to Poor PO intake Will d/w Palliative care and family ?Hospice Replace [facility] AM labs DC planning in 1-2 days to [place] if stable Cont other meds as below High risk for readmission. Review of Systems - Review of Systems Cardiovascular: negative: chest pain, palpitations, orthopnea, paroxysmal nocturnal dyspnea, edema, light headedness, other Gastrointestinal: negative: Nausea, Vomiting, Abdominal Pain, Diarrhea, Constipation, Melena, Hematochezia, Other - Medications/Allergies Allergies/Adverse Reactions: Allergies Allergy/AdvReac Type Severity Reaction Status Date / Time latex Allergy Mild Verified 04/22/18 22:52 Medications: Current Medications Acetaminophen (Tylenol) 650 mg PO Q4H PRN PRN Reason: Headache/Fever/Mild Pain (1-3) Amoxicillin/Clavulanate Potassium (Augmentin 400mg/5ml Oral Susp) 400 mg PO TID [facility] Last Admin: 06/26/18 09:33 Dose: 400 mg Apixaban (Eliquis) 2.5 mg PO BID [facility] Last Admin: 06/26/18 09:30 Dose: 2.5 mg Aspirin (Ecotrin) 81 mg PO DAILY [facility] Last Admin: 06/26/18 09:30 Dose: 81 mg Bisacodyl (Dulcolax) 10 mg PO DAILYPRN PRN PRN Reason: Constipation Calcium Carbonate (Tums) 1,000 mg PO Q4H PRN PRN Reason: Heartburn or Indigestion Carvedilol (Coreg) 3.125 mg PO BID [facility] Last Admin: 06/26/18 09:29 Dose: 3.125 mg Cyanocobalamin (Vitamin B-12) 1,000 mcg PO DAILY [facility] Last Admin: 06/26/18 09:29 Dose: 1,000 mcg Dextrose/Water (Dextrose 50%) 25 gm SLOW IVP PRN PRN PRN Reason: Hypoglycemia Doxycycline Hyclate (Vibramycin) 100 mg PO BID [facility] Last Admin: 06/26/18 09:29 Dose: 100 mg Estrogens Conjugated (Premarin Cream) 1 gm VAG HS [facility] Last Admin: 06/25/18 21:52 Dose: 1 gm Folic Acid (Folvite) 1 mg PO DAILY [facility] Last Admin: 06/26/18 09:28 Dose: 1 mg Glucagon (Glucagon) 1 mg IM PRN PRN PRN Reason: Hypoglycemia Dextrose/Water (D5w) 1,000 mls @ 0 mls/hr IV .Q0M PRN PRN Reason: Hypoglycemia Potassium Chloride 40 meq/ (Dextrose/Water) 1,020 mls @ 40 mls/hr IV .Q24H [facility] Last Admin: 06/25/18 12:31 Dose: 1,020 mls Insulin Human Regular (Humulin R) 0 units SC .MILD SLIDING SCALE PRN PRN Reason: Mild Correctional Scale Insulin Human Regular (Humulin R) 0 units SC .BEDTIME SLIDING SC PRN PRN Reason: Bedtime Correctional Scale Levothyroxine Sodium (Synthroid) 100 mcg PO 0600 [facility] Last Admin: 06/26/18 05:54 Dose: 100 mcg Megestrol Acetate (Megace) 40 mg PO BID [facility] Last Admin: 06/26/18 09:30 Dose: 40 mg Midodrine (Proamatine) 5 mg PO TID [facility] Last Admin: 06/26/18 09:30 Dose: 5 mg Miscellaneous Medication (Phos-Nak) 2 pkt PER TUBE BID-WM [facility] Last Admin: 06/26/18 07:45 Dose: 2 pkt Miscellaneous Medication (Pharmacy To Dose) 1 each IVPB DAILYPRN PRN PRN Reason: LABS Multivitamins (Theragran) 1 tab PO DAILY [facility] Last Admin: 06/26/18 09:29 Dose: 1 tab Nitroglycerin (Nitrostat) 0.4 mg PO Q5MIN PRN PRN Reason: Chest Pain Nystatin (Mycostatin) 500,000 units SSW QID [facility] Last Admin: 06/26/18 09:30 Dose: Not Given Ondansetron HCl (Zofran Odt) 4 mg PO Q6H PRN PRN Reason: Nausea/Vomiting Ondansetron HCl (Zofran) 4 mg IVP Q6H PRN PRN Reason: Nausea/Vomiting Pantoprazole Sodium (Protonix) 40 mg PO DAILY [facility] Last Admin: 06/26/18 09:29 Dose: 40 mg Phosphorus (Kphos Neutral) 500 mg PO TID[facility] Last Admin: 06/26/18 09:29 Dose: 500 mg Prednisone (Prednisone) 20 mg PO DAILY [facility] Last Admin: 06/26/18 09:30 Dose: 20 mg Pyridoxine HCl (Vitamin B 6) 50 mg PO DAILY [facility] Last Admin: 06/26/18 09:30 Dose: 50 mg Senna/Docusate Sodium (Senokot S) 1 tab PO BID [facility] Last Admin: 06/26/18 09:28 Dose: 1 tab Sertraline HCl (Zoloft) 50 mg PO DAILY [facility] Last Admin: 06/26/18 09:29 Dose: 50 mg Sodium Chloride (Flush - Normal Saline) 10 ml IVF PRN PRN PRN Reason: Saline Flush Last Admin: 06/22/18 21:51 Dose: 10 ml Sodium Chloride (Flush - Normal Saline) 10 ml IVF PRN PRN PRN Reason: Saline Flush Thiamine HCl (Thiamine) 100 mg PO DAILY [facility] Last Admin: 06/26/18 09:29 Dose: 100 mg Tramadol HCl (Ultram) 50 mg PO Q4H PRN PRN Reason: Moderate Pain (4-6) Last Admin: 06/25/18 21:49 Dose: 50 mg
[2018-06-26 11:54] VITALS: TEMP 97.6
[2018-06-26 15:39] VITALS: BP 128/61
[2018-06-26] MEDS: Potassium Chloride 40 MEQ in Dextrose 5% in Water 1,000 ML IV SCH (16:17)
[2018-06-26] MEDS ORDERED: Morphine 4 MG/ML VIAL SLOW IVP PRN (17:23)
--- NOTE | 2018-06-27 06:48 | DIS ---
DATE OF ADMISSION: 06/19/2018 DATE OF DISCHARGE: 06/26/2018 DISCHARGE DISPOSITION: Inpatient hospice. DISCHARGE MEDICATION: Per Hospice. The patient was seen and examined on the day of discharge. Denies any new complaints. BRIEF HOSPITAL COURSE: The patient is an 82-year-old female with multiple medical issues, presented to the hospital from [facility] with low blood pressure as well as hypoxia. She was discharged from this facility approximately 2 weeks ago. Please refer to the history and physical for further details. The patient was admitted to the hospital with a diagnosis of sepsis with acute organ dysfunction secondary to pneumonia, suspected aspiration. CT chest also showed a small left pulmonary embolism. She was also found to have multiple electrolyte abnormalities as well as catheter associated UTI. She was placed on broad-spectrum antibiotics. She was seen by multiple consultants including pulmonary Dr. Galvan, gastroenterology, Dr. Sigala, and cardiology Dr. Marty Mike. Due to overall worsening, family and the patient agreed with hospice. She will be discharged to inpatient hospice. FINAL DIAGNOSES: 1. Sepsis with acute organ dysfunction secondary to aspiration pneumonia with RSV bronchitis and Klebsiella urinary tract infection. 2. Left-sided pulmonary embolism, started on Eliquis this admission. 3. Catheter associated urinary tract infection. 4. Chronic urinary retention with indwelling Padron catheter. 5. Swallow dysfunction. The patient declined PEG tube. 6. Multiple electrolyte abnormalities including hypokalemia, hypophosphatemia, and hypomagnesemia. 7. Chronically elevated troponin due to demand ischemia. 8. Severe protein-calorie malnutrition. 9. Chronic anemia. 10. Chronic myopathy of unknown type, on chronic steroids. 11. Elevated inflammatory markers. 12. Hypothyroidism. 13. History of cardiac arrest during an EGD in the past. 14. Peptic ulcer disease. 15. Dyslipidemia. 16. Atrophic vaginitis, on estrogen. 17. Physical deconditioning. 18. Decubitus ulcer over the sacrum, stage II, present on admission. 19. Diabetes mellitus type 2. 20. Chronic diastolic heart failure. 21. Hypothyroidism. 22. Oral thrush. Job ID: [id number]
== END 2018-06-26 19:46 | disposition hospice, inpatient (51) | DRG 871 ==
LOC: ERS 07:31 → ERHOLD 11:03 → 2NO 12:48
PROVIDERS: ADMIT Internal Medicine; ATTEND Internal Medicine
DX: A41.9 Sepsis, unspecified organism (principal); J69.0 Pneumonitis due to inhalation of food and vomit; I26.99 Other pulmonary embolism without acute cor pulmonale; E43 Unspecified severe protein-calorie malnutrition; J96.01 Acute respiratory failure with hypoxia; T83.511A Infection and inflammatory reaction due to indwelling urethral catheter, initial encounter; N39.0 Urinary tract infection, site not specified; Z68.1 Body mass index [BMI] 19.9 or less, adult; I50.32 Chronic diastolic (congestive) heart failure; B37.0 Candidal stomatitis; G93.40 Encephalopathy, unspecified; Z51.5 Encounter for palliative care; I11.0 Hypertensive heart disease with heart failure; E78.5 Hyperlipidemia, unspecified; F32.9 Major depressive disorder, single episode, unspecified; E03.9 Hypothyroidism, unspecified; L89.152 Pressure ulcer of sacral region, stage 2; E11.9 Type 2 diabetes mellitus without complications; R33.9 Retention of urine, unspecified; Z66 Do not resuscitate; E87.6 Hypokalemia; E83.39 Other disorders of phosphorus metabolism; E83.42 Hypomagnesemia; R74.8 Abnormal levels of other serum enzymes; D64.9 Anemia, unspecified; G72.9 Myopathy, unspecified; N95.2 Postmenopausal atrophic vaginitis; B96.1 Klebsiella pneumoniae [K. pneumoniae] as the cause of diseases classified elsewhere; Z79.82 Long term (current) use of aspirin; Z86.74 Personal history of sudden cardiac arrest; Z87.11 Personal history of peptic ulcer disease; Z86.73 Personal history of transient ischemic attack (TIA), and cerebral infarction without residual deficits; Z82.49 Family history of ischemic heart disease and other diseases of the circulatory system; R65.20 Severe sepsis without septic shock; Z99.3 Dependence on wheelchair; Z74.01 Bed confinement status; R13.12 Dysphagia, oropharyngeal phase; J20.5 Acute bronchitis due to respiratory syncytial virus
CPT/HCPCS: 36415; 36416; 71045; 71275; 80053; 80069; 80202; 81003; 81015; 82533; 82553; 83605; 83735; 83880; 84100; 84484; 85025; 85060; 86140; 87040; 87077; 87086; 87186; 87633; 87804; 87899; 93005; 94760; 96365; 96367; 96372; G8981-GP-CM; G8982-GP-CK; G8987-GO-CN; G8988-GO-CN; G8989-GO-CN; G8996-GN-CL; G8997-GN-CL; J1650; J1956; J2270; J2543; J3370; J3475; J3480; J7050; J7070; J7506; S0179